=== PATIENT | male | born 1960 | race Caucasian/White ===

== ENCOUNTER 2019-05-30 11:57 | Outpatient (CLI) | payer MEDICARE, SELFPAY ==
[2019-05-30 12:17] LABS: Add Urine Microscopic? YES; Appearance Urine Clear (Clear); Bilirubin Urine Negative (Negative); Blood Urine Negative (Negative); Color Urine Yellow (Yellow); Glucose Urine UA 2+ mg/dL (Negative); Ketones Urine Negative (Negative); Leukocyte Esterase Ur Negative LEU/UL (Negative); Mucus Urine Rare /lpf; Nitrate Urine Negative (Negative); Protein Urine Negative (Negative); RBC Urine 0-2 /hpf (0-2); Urobilinogen Urine Negative mg/dL (<2.0); WBC Urine 0-3 /hpf
== END 2019-05-30 11:58 | disposition home or self-care (01) ==
PROVIDERS: PCP Internal Medicine; Visit Provider Internal Medicine
DX: R31.9 Hematuria, unspecified (principal)
CPT/HCPCS: 81001

== ENCOUNTER 2019-09-25 13:15 | Outpatient (CLI) | payer MEDICARE, SELFPAY ==
[2019-09-25 13:46] LABS: Alanine Aminotransferase 44 U/L (4-50); Albumin Level 4.1 g/dL (3.5-5.1); Alkaline Phosphatase 119 U/L (38-126); Anion Gap 11.2 mmol/L (7-16); Aspartate Amino Transferase 39 U/L (17-59); Bilirubin,Total 0.5 mg/dL (0.2-1.3); Blood Urea Nitrogen 6 mg/dL (9-20); Calcium 8.7 mg/dL (8.4-10.2); Carbon Dioxide 30 mmol/L (22-30); Chloride 99 mmol/L (98-107); Cholesterol 200 mg/dL (0-200); Estimated Glomerular Filt Rate > 60; Glucose 301 mg/dL (75-110); HDL Direct 33 mg/dL; Potassium 4.2 mmol/L (3.4-5.0); Sodium 136 mmol/L (137-145); Triglycerides 214 mg/dL (<150)
[2019-09-25 13:57] LABS: LDL Cholesterol Direct 130 mg/dL
[2019-09-25 14:16] LABS: Prostate Specific Antigen 0.4 ng/mL (< OR = 4.0)
== END 2019-09-25 13:16 | disposition home or self-care (01) ==
LOC: ANHLAB 13:17
PROVIDERS: PCP Internal Medicine; Visit Provider Nurse Practitioner
DX: Z12.5 Encounter for screening for malignant neoplasm of prostate (principal); E78.5 Hyperlipidemia, unspecified
CPT/HCPCS: 36415; 80053; 80061; 84153; G0103

== ENCOUNTER 2019-10-01 11:03 | Outpatient (CLI) | payer MEDICARE, SELFPAY ==
[2019-10-01 11:44] LABS: Hemoglobin A1C 9.1 % (<5.7)
== END 2019-10-01 11:04 | disposition home or self-care (01) ==
LOC: ANHLAB 11:05
PROVIDERS: PCP Internal Medicine; Visit Provider Internal Medicine
DX: R73.09 Other abnormal glucose (principal)
CPT/HCPCS: 36415; 83036

== ENCOUNTER 2020-01-28 10:59 | Outpatient (RCR) | payer MEDICARE, SELFPAY | END 2020-01-28 17:16 | disposition home or self-care (01) | LOC: ANHDMC 10:59 | PROVIDERS: PCP Internal Medicine; Visit Provider Internal Medicine | DX: E11.65 Type 2 diabetes mellitus with hyperglycemia (principal); G31.84 Mild cognitive impairment of uncertain or unknown etiology; Z71.89 Other specified counseling | CPT/HCPCS: G0108 ==

== ENCOUNTER 2020-01-28 13:51 | Outpatient (CLI) | payer MEDICARE, SELFPAY ==
[2020-01-28 14:56] LABS: Alanine Aminotransferase 19 U/L (4-50); Albumin Level 4.1 g/dL (3.5-5.1); Alkaline Phosphatase 108 U/L (38-126); Anion Gap 7 mmol/L (8-16); Aspartate Amino Transferase 26 U/L (17-59); Bilirubin,Total 0.5 mg/dL (0.2-1.3); Blood Urea Nitrogen 8 mg/dL (9-20); Calcium 9.3 mg/dL (8.4-10.2); Carbon Dioxide 31 mmol/L (22-30); Chloride 103 mmol/L (98-107); Cholesterol 117 mg/dL (0-200); Estimated Glomerular Filt Rate > 60; Glucose 139 mg/dL (75-110); HDL Direct 35 mg/dL; Potassium 4.1 mmol/L (3.4-5.0); Sodium 141 mmol/L (137-145); Triglycerides 168 mg/dL (<150)
[2020-01-28 15:07] LABS: LDL Cholesterol Direct 52 mg/dL
[2020-01-28 15:14] LABS: Hemoglobin A1C 6.4 % (<5.7)
== END 2020-01-28 13:52 | disposition home or self-care (01) ==
LOC: ANHLAB 13:53
PROVIDERS: PCP Internal Medicine; Visit Provider Internal Medicine
DX: E11.9 Type 2 diabetes mellitus without complications (principal); I10 Essential (primary) hypertension; E78.5 Hyperlipidemia, unspecified
CPT/HCPCS: 36415; 80053; 80061; 83036; G0108

== ENCOUNTER 2020-03-31 10:40 | Outpatient (CLI) | payer MEDICARE, SELFPAY ==
--- NOTE | ~2020-03-31 | XR_ITS ---
XR abdomen/kub 1V DATE: 03/31/2020 10:57 INDICATION: Left flank pain TECHNIQUE: AP projection, 2 views COMPARISON: 07/15/2011 KUB 06/06/[address] abdomen pelvis FINDINGS: No urinary tract calcification is evident. No visceromegaly is detected. The psoas shadows are intact. No evidence of bowel obstruction. Included skeletal structures are unremarkable. IMPRESSION: No significant abnormality Reviewed, dictated and finalized at Location [facility]. Reviewed, dictated and finalized at location A. ON IMPAIRED TEACHER IMPRESSION: No significant abnormality
[2020-03-31 11:14] LABS: Add Urine Microscopic? YES; Appearance Urine Clear (Clear); Bacteria Urine Trace /hpf; Bilirubin Urine Negative (Negative); Blood Urine Negative (Negative); Color Urine Yellow (Yellow); Glucose Urine UA 3+ mg/dL (Negative); Ketones Urine Negative (Negative); Leukocyte Esterase Ur Negative LEU/UL (Negative); Mucus Urine Rare /lpf; Nitrate Urine Negative (Negative); Protein Urine Negative (Negative); RBC Urine 0-2 /hpf (0-2); Specific Grav Ur 1.021 (1.001-1.035); Squamous Epithelial Cell Urine Rare /hpf (Few); Urobilinogen Urine Negative mg/dL (<2.0); WBC Urine 0-3 /hpf
== END 2020-03-31 10:41 | disposition home or self-care (01) ==
PROVIDERS: PCP Internal Medicine; Visit Provider Internal Medicine
DX: R10.9 Unspecified abdominal pain (principal)
CPT/HCPCS: 74018; 81001

== ENCOUNTER 2020-05-13 09:10 | Outpatient (CLI) | payer MEDICARE, SELFPAY | END 2020-05-13 09:11 | disposition home or self-care (01) | LOC: ANHCOVIDVC 09:10 | PROVIDERS: PCP Internal Medicine | DX: Z23 Encounter for immunization (principal) | CPT/HCPCS: 0001A; 91300 ==

== ENCOUNTER 2020-06-03 09:09 | Outpatient (CLI) | payer MEDICARE, SELFPAY | END 2020-06-03 09:10 | disposition home or self-care (01) | LOC: ANHCOVIDVC 09:09 | PROVIDERS: PCP Internal Medicine | DX: Z23 Encounter for immunization (principal) | CPT/HCPCS: 0002A; 91300 ==

== ENCOUNTER 2020-12-12 11:07 | Outpatient (CLI) | payer MEDICARE, SELFPAY ==
[2020-12-12 11:45] LABS: Hemoglobin A1C 6.4 % (<5.7)
[2020-12-12 12:06] LABS: Alanine Aminotransferase 15 U/L (4-50); Albumin Level 4.3 g/dL (3.5-5.1); Alkaline Phosphatase 124 U/L (38-126); Anion Gap 7 mmol/L (8-16); Aspartate Amino Transferase 21 U/L (17-59); Bilirubin,Total 0.5 mg/dL (0.2-1.3); Blood Urea Nitrogen 9 mg/dL (9-20); Calcium 9.3 mg/dL (8.4-10.2); Carbon Dioxide 32 mmol/L (22-30); Chloride 104 mmol/L (98-107); Cholesterol 116 mg/dL (0-200); Estimated Glomerular Filt Rate > 60; Glucose 210 mg/dL (65-110); HDL Direct 36 mg/dL; Potassium 4.1 mmol/L (3.4-5.0); Sodium 143 mmol/L (137-145); Triglycerides 122 mg/dL (<150)
[2020-12-12 12:16] LABS: LDL Cholesterol Direct 54 mg/dL
== END 2020-12-12 11:08 | disposition home or self-care (01) ==
LOC: ANHLAB 11:09
PROVIDERS: PCP Internal Medicine; Visit Provider Nurse Practitioner
DX: E78.5 Hyperlipidemia, unspecified (principal); E11.9 Type 2 diabetes mellitus without complications
CPT/HCPCS: 36415; 80053; 80061; 83036

== ENCOUNTER 2021-01-10 12:21 | Outpatient (CLI) | payer MEDICARE, SELFPAY ==
--- NOTE | 2021-01-10 12:39 | ECHO_ITS ---
Patient Info Name: Pavel Davis Age: 60 years : 1960 Gender: Male Ht: 71 in Wt: 220 lbs BSA: 2.26 m2 HR: 70 bpm BP: 154 / 91 mmHg Heart Rhythm: Sinus Rhythm Exam Date: 01/10/2021 2:09 PM Exam Location: [facility] Patient Status: Outpatient Admit Date: 01/10/2021 Staff Ordering Physician: Anup Arevalo DO Metal Polisher: Yasmine Cadena RDCS Attending Provider: Anup Arevalo DO Referring Physician: Irina MILLAN; Exam Type: CA echo doppler color flow Study Info Indications R55 - Syncope and collapse Complete two-dimensional, color flow and Doppler transthoracic echocardiogram is performed. Summary 1. Complete two-dimensional, color flow and Doppler transthoracic echocardiogram is performed. 2. Left ventricular chamber dimension is normal. 3. Left ventricular systolic function is normal, estimated at 55-60%. 4. The left ventricular diastolic function is grade I diastolic dysfunction. 5. E/e' 9 is minimally elevated. 6. Left atrial chamber dimension is mildly enlarged. 7. There is trace mitral valve regurgitation. 8. No pulmonary hypertension, estimated pulmonary arterial systolic pressure is 30 mmHg. Left Ventricle E/e' 9 is minimally elevated. Left ventricular chamber dimension is normal. Left ventricular systolic function is normal, estimated at 55-60%. The left ventricular diastolic function is grade I diastolic dysfunction. Right Ventricle Right ventricular systolic function is normal and with normal TAPSE 2.0 cm. Right ventricular chamber dimension is normal. Left Atria Left atrial chamber dimension is mildly enlarged. Right Atria Right atrial chamber dimension is normal. Aortic Valve The aortic valve is trileaflet. There is no aortic valve stenosis. There is no aortic valve regurgitation. Pulmonic Valve There is no pulmonic regurgitation. Mitral Valve There is no mitral valve stenosis. There is trace mitral valve regurgitation. Tricuspid Valve There is no tricuspid valve regurgitation. No pulmonary hypertension, estimated pulmonary arterial systolic pressure is 30 mmHg. Pericardium/Pleural There is no pericardial effusion. Inferior Vena Cava Normal inferior vena cava with >50% collapse upon inspiration consistent with normal right atrial pressure, 5 mmHg. Aorta The aortic root size at the sinus of Valsalva is normal. Left Ventricular Outflow Tract Name Value Normal LVOT 2D LVOT Diameter 2.0 cm LVOT Doppler LVOT Peak Gradient 4 mmHg LVOT Mean Gradient 2 mmHg LVOT VTI 23 cm LVOT VTI/AV VTI Ratio 0.8 LVOT Stroke Volume 74 ml LVOT CO 4.8 l/min LVOT CI 2.1 l/min/m2 Pulmonic Valve Name Value Normal RVOT Doppler
--- NOTE | 2021-01-13 12:42 | WPDHOLTEREM ---
Holter/Event Monitor Holter/Event Monitor Date of procedure: 01/09/21 Holter/Event Procedure: 48 Hr Holter Monitor Indications: Syncope Conclusion: 1. 48 hour holter monitor on 01/09/21. 2. Underlying rhythm is sinus rhythm. HR range 50-132 bpm; average HR 81 bpm. 3. There are 17 premature supraventricular complexes and 1 supraventricular couplet. No supraventricular tachycardia. 4. There are 8 premature ventricular complexes. No ventricular tachycardia. 5. No sinoatrial or atrioventricular blocks. No significant pauses greater than 2 seconds. 6. No symptoms available for correlation.
== END 2021-01-10 12:22 | disposition home or self-care (01) ==
PROVIDERS: PCP Internal Medicine; Visit Provider Internal Medicine
DX: R55 Syncope and collapse (principal)
CPT/HCPCS: 93225; 93226; 93306

== ENCOUNTER 2021-05-02 10:10 | Outpatient (CLI) | payer MEDICARE, SELFPAY ==
[2021-05-02 10:46] LABS: Alanine Aminotransferase 25 U/L (4-50); Albumin Level 4.3 g/dL (3.5-5.1); Alkaline Phosphatase 153 U/L (38-126); Anion Gap 5 mmol/L (8-16); Aspartate Amino Transferase 39 U/L (17-59); Bilirubin,Total 0.5 mg/dL (0.2-1.3); Blood Urea Nitrogen 8 mg/dL (9-20); Calcium 8.6 mg/dL (8.4-10.2); Carbon Dioxide 32 mmol/L (22-30); Chloride 103 mmol/L (98-107); Cholesterol 151 mg/dL (0-200); Estimated Glomerular Filt Rate > 60; Glucose 279 mg/dL (65-110); HDL Direct 36 mg/dL; Potassium 5.1 mmol/L (3.4-5.0); Sodium 140 mmol/L (137-145); Triglycerides 127 mg/dL (<150)
[2021-05-02 10:58] LABS: LDL Cholesterol Direct 77 mg/dL
[2021-05-02 11:30] LABS: Hemoglobin A1C 7.1 % (<5.7)
== END 2021-05-02 10:11 | disposition home or self-care (01) ==
LOC: ANHLAB 10:14
PROVIDERS: PCP Internal Medicine; Visit Provider Internal Medicine
DX: E11.9 Type 2 diabetes mellitus without complications (principal); I25.10 Atherosclerotic heart disease of native coronary artery without angina pectoris; E78.5 Hyperlipidemia, unspecified
CPT/HCPCS: 36415; 80053; 80061; 83036

== ENCOUNTER 2021-06-20 07:46 | Outpatient (CLI) | payer MEDICARE, SELFPAY ==
--- NOTE | ~2021-06-20 | NM_ITS ---
EXAM: NM gastric emptying study DATE: 06/20/2021 14:40 INDICATION: Vomiting. TECHNIQUE: A gastric emptying study was performed using the methodology of Polina MURILLO, et al. J Nucl Med 2007; 48:568-572. The patient was given a meal consisting of 2 scrambled eggs labeled with 1 mCi Tc-99m sulfur colloid, 2 slices of toast, two packages of jam, and approximately 120 mL of water. Si multaneous anterior and posterior 1-min images of the abdomen were obtained with the patient supine a t multiple time points over a total period of 4 hours. The geometric mean of anterior and posterior v iews was determined, and the percentage retention was calculated for each time point. COMPARISON: None. FINDINGS: Gastric retention of the radiotracer-labeled meal was 73%, 38%, and 11% at the 1-hour, 2-h our, and 4-hour time points, respectively. With this technique, apparent rapid gastric emptying is srivastava ggested by <30% gastric retention at 1 hour. Delayed gastric emptying is defined by gastric retention of >90% at 1 hour, >60% retention at 2 hours, or >10% retention at 4 hours. IMPRESSION: 1. Delayed gastric emptying. Reviewed, dictated and finalized at location A.
== END 2021-06-20 07:47 | disposition home or self-care (01) ==
LOC: ANHIMG 07:48
PROVIDERS: PCP Internal Medicine; Visit Provider Nurse Practitioner
DX: R11.10 Vomiting, unspecified (principal); E11.9 Type 2 diabetes mellitus without complications; K30 Functional dyspepsia
CPT/HCPCS: 78264; A9541

== ENCOUNTER 2021-12-20 16:38 | Emergency (ER) | payer MEDICARE, SELFPAY ==
--- NOTE | ~2021-12-20 | CT_ITS ---
EXAMINATION: CTA chest PE protocol DATE: 12/20/2021 21:11 INDICATION: Dyspnea on exertion. Elevated d-dimer. History of deep venous thrombosis. TECHNIQUE: Computed tomography angiography (CTA) of the chest was performed with 100 mL Omnipaque-350 intravenous contrast timed to evaluate the pulmonary arteries. Coronal maximum intensity projection 3D-reconstructions were created by the technologist. Automated exposure control and iterative reconst ruction technique were employed. Exam dose: 509.23 mGy-cm total exam DLP. COMPARISON: 12/20/2021 2 view chest 09/10/2017 CT chest high resolution scan 06/27/2023 CT pulmonary scan FINDINGS: There is diagnostic contrast enhancement of the pulmonary arteries and no evidence of pulmo nary embolism. No thoracic aortic aneurysm or dissection. Normal heart size. There is left main and left anterior de scending coronary artery calcification. No pericardial or pleural effusion. No hilar or mediastinal mass lesion or lymphadenopathy. There are scattered mild bilateral focal areas of groundglass infiltrate and/or atelectasis. IMPRESSION: No evidence of pulmonary embolism Scattered bilateral patchy focal groundglass infiltrates and/atelectasis Reviewed, dictated and finalized at [facility]. Reviewed, dictated and finalized at location A.
--- NOTE | ~2021-12-20 | CT_ITS ---
EXAMINATION: CT cervical spine wo con DATE: 12/20/2021 18:51 INDICATION: Paresthesias and pain in the arms. TECHNIQUE: Computed tomography (CT) of the cervical spine was performed without intravenous contrast. Automated exposure control and iterative reconstruction technique were employed. The dose-length pro duct was 443.22 mGy-cm. COMPARISON: None FINDINGS: There is 3 degrees dextrocurvature of cervical spine. Vertebral body heights are normal. Th ere is mildly decreased disc height at C4-C5 and moderately decreased disc height at C5-C6 and C6-C7. The following disc levels are specifically discussed: C2-C3: There is mild bilateral uncovertebral joint osteoarthritis. There is no facet joint osteoarthr itis. There is mild right neural foraminal stenosis. There is no central canal stenosis. C3-C4: There is mild bilateral uncovertebral joint osteoarthritis. There is mild left facet joint ost eoarthritis. There is mild bilateral neural foraminal stenosis. There is mild central canal stenosis. C4-C5: There is moderate right and mild left uncovertebral joint osteoarthritis. There is mild right and moderate left facet joint osteoarthritis. There is mild bilateral neural foraminal stenosis. Ther e is no central canal stenosis. C5-C6: There is severe bilateral uncovertebral joint osteoarthritis. There is mild bilateral facet gloria int osteoarthritis. There is mild bilateral neural foraminal stenosis. There is mild central canal st enosis. C6-C7: There is severe bilateral uncovertebral joint osteoarthritis. There is severe right and modera te left facet joint osteoarthritis. There is mild bilateral neural foraminal stenosis. There is mild central canal stenosis. C7-T1: There is no uncovertebral joint osteoarthritis. There is severe right and mild left facet join t osteoarthritis. There is mild right neural foraminal stenosis. There is no central canal stenosis. IMPRESSION: 1. Moderate cervical spondylosis. Reviewed, dictated and finalized at location A.
--- NOTE | ~2021-12-20 | XR_ITS ---
EXAMINATION: XR chest 2V DATE: 12/20/2021 17:00 INDICATION: Shortness of breath. TECHNIQUE: Frontal and lateral views of the chest were obtained. COMPARISON: Chest 2 views 06/26/2013 FINDINGS: The chest demonstrates clear lungs without pneumonia, pleural effusion, or pneumothorax. Th e heart size is normal. IMPRESSION: 1. No acute cardiopulmonary disease. Reviewed, dictated and finalized at location A.
--- NOTE | ~2021-12-20 | CT_ITS ---
EXAMINATION: CT brain wo con DATE: 12/20/2021 18:51 INDICATION: Paresthesias. Headache. Dizziness. TECHNIQUE: Computed tomography (CT) of the head was performed without intravenous contrast. The mA wa s adjusted according to patient size. Iterative reconstruction technique was employed. The dose-lengt h product was 681.00 mGy-cm. COMPARISON: Head CT 09/04/2010 FINDINGS: There is no intracranial hemorrhage, acute infarction, or abnormal intracranial mass lesion . The ventricles are normal in size. The orbits are normal. There is mild mucosal thickening in the p aranasal sinuses. The mastoid air cells are normal. IMPRESSION: 1. Normal brain. Reviewed, dictated and finalized at location A. IMPRESSION: 1. Normal brain.
--- NOTE | 2021-12-20 16:44 | ECG_ITS ---
Measurements Intervals [place] Rate: 87 P: 27 NM: 161 QRS: -3 QRSD: 91 T: 41 QT: 352 QTc: 424 Interpretive Statements SINUS RHYTHM NO PREVIOUS ECG AVAILABLE FOR COMPARISON Electronically Signed On 12-21-2021 13:51:51 CDT by Erica Stone M.D.
[2021-12-20 16:46] VITALS: BP 124/75; PULSE 93; RESP 20; TEMP 36.2; O2SAT 98
[2021-12-20 17:07] LABS: Basophils Percent Auto 0.5 % (0.2-1.2); Eosinophils Percent Auto 0.4 % (0-4.4); Hematocrit 41.7 % (42.0-52.0); Hemoglobin 14.3 g/dL (14.0-18.0); Immature Granulocyte Absolute 0.02 K/mm3 (0.00-0.031); Immature Granulocyte Percent A 0.3 % (0-0.5); Lymphocytes Absolute Auto 1.31 K/mm3 (0.9-3.2); Lymphocytes Percent Auto 16.4 % (18.3-44.2); Mean Corpuscular HGB Conc 34.3 g/dl (32-36); Mean Corpuscular Hemoglobin 32.4 pg (26-34); Mean Corpuscular Volume 94.6 fl (80-100); Mean Platelet Volume 10.7 fl (7.4-10.4); Monocytes Absolute Auto 0.4 K/mm3 (0.1-0.6); Monocytes Percent Auto 4.6 % (2.6-8.5); Neutrophils Absolute Auto 6.2 K/mm3 (1.3-6.7); Neutrophils Percent Auto 77.8 % (45.5-73.1); Platelet Count Result 187 k/mm3 (150-375); Red Blood Count 4.41 M/mm3 (4.6-6.20); Red Cell Distribution Width 12.1 % (11.5-14.5)
[2021-12-20 17:19] LABS: Alanine Aminotransferase 20 U/L (6-50); Albumin Level 4.8 g/dL (3.5-5.1); Alkaline Phosphatase 123 U/L (38-126); Anion Gap 16 mmol/L (8-16); Aspartate Amino Transferase 34 U/L (17-59); Bilirubin,Total 0.8 mg/dL (0.2-1.3); Blood Urea Nitrogen 9 mg/dL (9-20); Calcium 8.8 mg/dL (8.4-10.2); Carbon Dioxide 28 mmol/L (22-30); Chloride 101 mmol/L (98-107); Estimated CRCL calculation 71 ml/min; Estimated Glomerular Filt Rate > 60; Glucose 113 mg/dL (65-110); Potassium 4.9 mmol/L (3.4-5.0); Sodium 145 mmol/L (137-145)
[2021-12-20 18:40] VITALS: BP 152/76; PULSE 89; RESP 16; O2SAT 98
--- NOTE | 2021-12-20 18:43 | ED.GENADULT ---
HPI - General Adult General Chief complaint: Shortness of Breath/Dyspnea <Karin Johnson PA-C - Last Filed: 12/20/21 21:54> Stated complaint: bilateral UE numbness with SOB and CP <Karin Johnson PA-C - Last Filed: 12/20/21 21:54> Time Seen by Provider: 12/20/21 18:22 <LEONA Alcaraz Last Filed: 12/20/21 21:54> Source: patient and family <LEONA Alcaraz Last Filed: 12/20/21 21:54> Mode of arrival: ambulatory <LEONA Alcaraz Last Filed: 12/20/21 21:54> Limitations: no limitations <LEONA Alcaraz Last Filed: 12/20/21 21:54> History of Present Illness HPI narrative: This is a 61-year-old male that presents to the emergency department with multiple complaints. Reports over the last week he has been having pain and tingling in both of his upper extremities. Reports this has become more constant today. No recent injuries or traumas. Also reports he has had some exertional shortness of breath. He has been having headaches, which are chronic for him. Also reports lightheadedness. Denies vision changes, vomiting, or focal numbness or weakness. <Karin Johnson PA-C - Last Filed: 12/20/21 21:54> Related Data Home medications: Home Medications Medication Instructions Recorded Confirmed desipramine 10 mg tablet 10 mg PO DAILY 03/31/20 12/06/21 gabapentin 600 mg tablet 900 mg PO TID 06/03/20 12/06/21 meloxicam 15 mg tablet 15 mg PO DAILY 06/03/20 12/06/21 <LEONA Alcaraz Last Filed: 12/20/21 21:54> Allergies/adverse reactions: Allergies Allergy/AdvReac Type Severity Reaction Status Date / Time codeine Allergy Mild Nausea And Verified 12/20/21 16:40 Vomiting <LEONA Alcaraz Last Filed: 12/20/21 21:54> Review of Systems Review of Systems: CONSTITUTIONAL: Denies fever EYES: Denies visual changes CARDIOVASCULAR: Denies chest pain RESPIRATORY: Reports dyspnea. GASTROINTESTINAL: Denies vomiting MUSCULOSKELETAL: Reports joint pain, and myalgia. NEUROLOGIC: Reports headache. Denies numbness, or weakness. <Karin Johnson PA-C - Last Filed: 12/20/21 21:54> All systems reviewed & are unremarkable except as noted in HPI and below <Karin Johnson PA-C - Last Filed: 12/20/21 21:54> FORMERLY [facility], [facility]–1983 Past Medical History Medical History: Medical History (Updated 12/20/21 @ 21:53 by Karin Johnson PA-C) Benign essential hypertension Dementia History of TIAs Hx of deep venous thrombosis Mixed hyperlipidemia Screening for prostate cancer Skin lesions Type 2 diabetes mellitus <Karin Johnson PA-C - Last Filed: 12/20/21 21:54> Family History Family History: Family History Mother Family history of heart disease in male family member before age 55 Grandparent Family history of heart disease in male family member before age 55 Other Family history of dementia Hypertension <Karin Johnson PA-C - Last Filed: 12/20/21 21:54> Social History Social History: Social History (Updated 12/20/21 @ 18:47 by Karin Johnson PA-C) Smoking status: Current every day smoker Tobacco type: e-cigarettes/vaping Alcohol intake: never Substance use: current Substance use type: marijuana <Karin Johnson PA-C - Last Filed: 12/20/21 21:54> Exam Narrative: GENERAL: Well-appearing, well-nourished, and in no acute distress. HEAD: Normocephalic, atraumatic. EYES: PERRLA and EOMI. ENT: Nares clear, no rhinorrhea or epistaxis. Mucous membranes moist. Oropharynx without tonsillar hypertrophy exudate or other lesions. Bilateral TMs pearly ojeda non-bulging NECK: Supple. No adenopathy or masses. CHEST: Clear to auscultation. No respiratory distress. No wheezes rales or rhonchi HEART: Regular rate and rhythm. No murmur heard. Normal peripheral pulses. EXTREMITIES: Normal range of motion. No edema. Strength equal in bilateral upper and lower extremitie
[2021-12-20 19:27] LABS: Add Urine Microscopic? YES; Appearance Urine Clear (Clear); Bacteria Urine Trace /hpf; Bilirubin Urine Negative (Negative); Blood Urine Negative (Negative); Color Urine Yellow (Yellow); Glucose Urine UA 2+ mg/dL (Negative); Ketones Urine Negative (Negative); Leukocyte Esterase Ur Negative LEU/UL (Negative); Mucus Urine Rare /lpf; Nitrate Urine Negative (Negative); Protein Urine Negative (Negative); Specific Grav Ur 1.021 (1.001-1.035); Urobilinogen Urine Negative mg/dL (<2.0); WBC Urine 0-3 /hpf
[2021-12-20 19:39] LABS: Troponin I < 0.012 ng/mL (0.000-0.034)
[2021-12-20 19:51] LABS: Influenza A QL RT-PCR Negative (Negative); Influenza B QL RT-PCR Negative (Negative); SARS-CoV-2 RNA PCR Negative
[2021-12-20 20:09] LABS: INR 1.1; Prothrombin Time 13.4 Seconds (11.1-14.7)
[2021-12-20 20:11] LABS: Partial Thromboplastin Time 26.2 SECONDS (22.3-36.8)
[2021-12-20 20:14] LABS: D Dimer 0.82 ug/mL (<0.48)
[2021-12-20 20:36] LABS: Folic Acid 7.2 ng/mL (2.76->20)
[2021-12-20 20:37] VITALS: PULSE 75
[2021-12-20] MEDS: diazePAM INJ (*CRX) 10 MG/2 ML SYRINGE 5 MG IV PUSH (21:36)
[2021-12-20 21:37] VITALS: BP 146/85; PULSE 70; RESP 16; TEMP 36.8; O2SAT 97
[2021-12-20 22:24] VITALS: BP 143/64; PULSE 75; RESP 15; O2SAT 96
== END 2021-12-20 22:25 | disposition home or self-care (01) ==
PROVIDERS: Emergency Medicine; Physician Assistant; Emergency Provider Emergency Medicine; PCP Internal Medicine
DX: R20.2 Paresthesia of skin (principal); R06.00 Dyspnea, unspecified; Z20.822 Contact with and (suspected) exposure to COVID-19; I10 Essential (primary) hypertension; F03.90 Unspecified dementia, unspecified severity, without behavioral disturbance, psychotic disturbance, mood disturbance, and anxiety; E11.9 Type 2 diabetes mellitus without complications; E78.2 Mixed hyperlipidemia; Z86.718 Personal history of other venous thrombosis and embolism; Z86.73 Personal history of transient ischemic attack (TIA), and cerebral infarction without residual deficits; F17.290 Nicotine dependence, other tobacco product, uncomplicated; R06.02 Shortness of breath; Z79.84 Long term (current) use of oral hypoglycemic drugs
CPT/HCPCS: 36415; 70450; 71046; 71275; 72125; 80053; 81001; 82607; 82746; 83735; 84443; 84484; 85025; 85380; 85610; 85730; 87502; 93005; 96365; 96375; 99284; J0131; J3360; Q9967; U0003; U0005

== ENCOUNTER 2022-04-13 11:53 | Emergency (ER) | payer MEDICARE, SELFPAY ==
--- NOTE | ~2022-04-13 | XR_ITS ---
EXAMINATION: XR chest 2V DATE: 04/13/2022 12:25 INDICATION: Midsternal chest pain TECHNIQUE: PA and lateral views of the chest are obtained. COMPARISON: 12/20/2021 FINDINGS: The lungs are free of acute opacities. No pleural effusion or pneumothorax. The cardiomedia stinal silhouette is normal. There is mild thoracic spondylosis. IMPRESSION: 1. No acute cardiopulmonary abnormality. Reviewed, dictated and finalized at location B. ARCH LABORATORY SPECIALIST
--- NOTE | 2022-04-13 11:54 | ECG_ITS ---
Measurements Intervals [place] Rate: 70 P: 15 MO: 167 QRS: -6 QRSD: 89 T: 31 QT: 377 QTc: 409 Interpretive Statements SINUS RHYTHM WITHIN NORMAL LIMITS COMPARED TO ECG 12/20/2021 16:48:07 NO SIGNIFICANT CHANGES Electronically Signed On 04-13-2022 15:31:12 GUIDE by Silverio Chávez M.D.
[2022-04-13 12:02] VITALS: BP 147/92; PULSE 70; RESP 16; TEMP 36.4; O2SAT 100
[2022-04-13 12:15] LABS: Basophils Percent Auto 0.6 % (0.2-1.2); Eosinophils Absolute Auto 0.1 K/mm3 (0-0.3); Hemoglobin 15.3 g/dL (14.0-18.0); Immature Granulocyte Absolute 0.02 K/mm3 (0.00-0.031); Immature Granulocyte Percent A 0.4 % (0-0.5); Lymphocytes Absolute Auto 1.06 K/mm3 (0.9-3.2); Mean Corpuscular Hemoglobin 32.3 pg (26-34); Mean Corpuscular Volume 95.1 fl (80-100); Mean Platelet Volume 10.9 fl (7.4-10.4); Monocytes Absolute Auto 0.3 K/mm3 (0.1-0.6); Monocytes Percent Auto 5.2 % (2.6-8.5); Neutrophils Absolute Auto 3.4 K/mm3 (1.3-6.7); Neutrophils Percent Auto 70.8 % (45.5-73.1); Platelet Count Result 170 k/mm3 (150-375); Red Blood Count 4.73 M/mm3 (4.6-6.20); Red Cell Distribution Width 12.1 % (11.5-14.5); White Blood Count 4.8 K/mm3 (4.5-10.0)
[2022-04-13 12:28] LABS: Alanine Aminotransferase 24 U/L (6-50); Albumin Level 4.5 g/dL (3.5-5.1); Alkaline Phosphatase 154 U/L (38-126); Anion Gap 7 mmol/L (8-16); Aspartate Amino Transferase 28 U/L (17-59); Bilirubin,Total 0.5 mg/dL (0.2-1.3); Blood Urea Nitrogen 7 mg/dL (9-20); Calcium 8.6 mg/dL (8.4-10.2); Carbon Dioxide 29 mmol/L (22-30); Chloride 102 mmol/L (98-107); Estimated CRCL calculation 79 ml/min; Estimated Glomerular Filt Rate > 60; Glucose 194 mg/dL (65-110); Lipase 397 U/L (23-300); Potassium 4.1 mmol/L (3.4-5.0); Sodium 138 mmol/L (137-145)
[2022-04-13 12:35] LABS: INR 0.9; Partial Thromboplastin Time 25.9 SECONDS (22.3-36.8); Prothrombin Time 12.1 Seconds (11.1-14.7)
[2022-04-13 12:38] LABS: Troponin I < 0.012 ng/mL (0.000-0.034)
--- NOTE | 2022-04-13 13:01 | PC.NURSE ---
pt states all of his symptoms have resolved and he will follow up with his pmd. pt left stating he will follow up with his physician.
== END 2022-04-13 13:01 | disposition left against medical advice (07) ==
PROVIDERS: Emergency Provider Emergency Medicine; PCP Internal Medicine
DX: R07.2 Precordial pain (principal); R06.02 Shortness of breath
CPT/HCPCS: 36415; 71046; 80053; 83690; 84484; 85025; 85610; 85730; 93005; 99199

== ENCOUNTER 2022-11-19 14:25 | Outpatient (CLI) | payer MEDICARE, SELFPAY ==
--- NOTE | ~2022-11-19 | MR_ITS ---
EXAMINATION: MR cervical spine wo con DATE: 11/19/2022 15:30 INDICATION: Cervical radiculopathy. TECHNIQUE: Magnetic resonance imaging (MRI) of the cervical spine was performed without intravenous c ontrast. COMPARISON: Cervical spine MRI 04/04/2012 FINDINGS: There is 6 degrees levocurvature of cervicothoracic spine. Vertebral body heights are pradeep l. There is mildly decreased disc height at C4-C5, moderately decreased disc height at C5-C6, and sev erely decreased disc height at C6-C7. The spinal cord signal intensity is normal. The following disc levels are specifically discussed: C2-C3: The disc does not extend beyond the endplate margin. There is mild right uncovertebral joint o steoarthritis. There is no facet joint osteoarthritis. There is mild right neural foraminal stenosis. There is no central canal stenosis. C3-C4: There is a central protrusion. There is moderate bilateral uncovertebral joint osteoarthritis. There is mild bilateral facet joint osteoarthritis. There is mild bilateral neural foraminal stenosi s. There is no central canal stenosis. C4-C5: There is a central extrusion. There is severe right and moderate left uncovertebral joint oste oarthritis. There is mild right and moderate left facet joint osteoarthritis. There is moderate right and mild left neural foraminal stenosis. There is mild central canal stenosis. C5-C6: The disc is bulging. There is severe bilateral uncovertebral joint osteoarthritis. There is mo derate right and mild left facet joint osteoarthritis. There is severe right and moderate left neural foraminal stenosis. There is mild central canal stenosis. C6-C7: The disc is bulging. There is severe bilateral uncovertebral joint osteoarthritis. There is se osiel bilateral facet joint osteoarthritis. There is moderate right and mild left neural foraminal ayana nosis. There is mild central canal stenosis. C7-T1: There is a central protrusion. There is no uncovertebral joint osteoarthritis. There is severe right and moderate left facet joint osteoarthritis. There is mild bilateral neural foraminal stenosi s. There is no central canal stenosis. IMPRESSION: 1. Severe cervical spondylosis. Reviewed, dictated and finalized at location A.
== END 2022-11-19 14:26 | disposition home or self-care (01) ==
PROVIDERS: PCP Nurse Practitioner; Visit Provider Physical Medicine & Rehabilitation
DX: M47.22 Other spondylosis with radiculopathy, cervical region (principal)
CPT/HCPCS: 72141

== ENCOUNTER 2022-12-26 11:13 | Outpatient (CLI) | payer MEDICARE, SELFPAY ==
[2022-12-26 12:12] LABS: Alanine Aminotransferase 17 U/L (6-50); Albumin Level 3.9 g/dL (3.5-5.1); Alkaline Phosphatase 104 U/L (38-126); Anion Gap 5 mmol/L (8-16); Aspartate Amino Transferase 25 U/L (17-59); Bilirubin,Total 0.5 mg/dL (0.2-1.3); Blood Urea Nitrogen 5 mg/dL (9-20); Calcium 8.6 mg/dL (8.4-10.2); Carbon Dioxide 32 mmol/L (22-30); Chloride 105 mmol/L (98-107); Cholesterol 223 mg/dL (0-200); Estimated Glomerular Filt Rate > 60; Glucose 126 mg/dL (65-110); HDL Direct 39 mg/dL; Sodium 142 mmol/L (137-145); Triglycerides 129 mg/dL (<150)
[2022-12-26 12:24] LABS: LDL Cholesterol Direct 135 mg/dL
[2022-12-26 12:41] LABS: Hemoglobin A1C 6.4 % (<5.7)
[2022-12-27 17:07] LABS: Prostate Specific Antigen 0.6 ng/mL (< OR = 4.0)
== END 2022-12-26 11:14 | disposition home or self-care (01) ==
LOC: ANHLAB 11:14
PROVIDERS: PCP Nurse Practitioner; Visit Provider Nurse Practitioner
DX: E11.9 Type 2 diabetes mellitus without complications (principal); I10 Essential (primary) hypertension; Z79.899 Other long term (current) drug therapy; E78.5 Hyperlipidemia, unspecified; Z12.5 Encounter for screening for malignant neoplasm of prostate
CPT/HCPCS: 36415; 80053; 80061; 83036; 84153; G0103

== ENCOUNTER 2023-02-28 10:58 | Emergency (ER) | payer MEDICARE, SELFPAY ==
--- NOTE | ~2023-02-28 | CT_ITS ---
EXAMINATION: CT brain wo con DATE: 02/28/2023 19:47 INDICATION: Head injury. TECHNIQUE: Computed tomography (CT) of the head was performed without intravenous contrast. The mA wa s adjusted according to patient size. Iterative reconstruction technique was employed. The dose-lengt h product was 681.00 mGy-cm. COMPARISON: Head CT 12/20/2021 FINDINGS: There is no intracranial hemorrhage, acute infarction, or abnormal intracranial mass lesion . The ventricles are normal in size. There is mucosal thickening in the paranasal sinuses. The orbit s are normal. The mastoid air cells are normal. IMPRESSION: 1. Normal brain. Reviewed, dictated and finalized at location E. ATIONS MANAGER STATION IMPRESSION: 1. Normal brain.
--- NOTE | ~2023-02-28 | CT_ITS ---
Non-contrast Head CT History: Altered mental status COMPARISON: 02/28/2023 Technique: Axial non-contrast imaging of the brain was performed. Dose reduction technique was used on this scan by utilizing automated exposure control and iterative reconstruction technique. The dose -length product (DLP) was 681.00 mGy-cm. Findings: There is no evidence of intracranial hemorrhage, mass lesion, or acute infarct. Brain par enchyma appears normal. The ventricles and subarachnoid spaces are normal in size. The calvarium ap pears normal. The visualized paranasal sinuses and mastoid air cells are clear. Impression: No significant abnormality seen. Reviewed, dictated and finalized at location . MACEUTICAL COMPOUNDING SUPERVISOR Impression: No significant abnormality seen.
--- NOTE | ~2023-02-28 | CT_ITS ---
Clinical Indication: Altered mental status, pain CT Scan of the Chest, Abdomen, and Pelvis with Contrast: Technique: Contiguous sections were acquired throughout the chest, abdomen, and pelvis after intraven ous administration of 100 cc of Omnipaque 350. Dose reduction technique was used on this scan by uti lizing automated exposure control and iterative reconstruction technique. The dose-length product (DL P) was 1509.18 mGy-cm. Findings: There is no evidence of any significant mediastinal, hilar or axillary lymphadenopathy. The mediastin al soft tissues and vascular structures appear normal. There is no evidence of pleural or pericardial effusion. The lungs are clear, aside from mild dependent atelectatic changes. The liver, spleen, pancreas, gallbladder, adrenals and right kidney are within normal limits. 2 mm no nobstructing left renal stone noted. No evidence of aortic aneurysm. No lymphadenopathy. No bowel obstruction or bowel wall thickening. There is no evidence to suggest acute appendicitis. Urinary bladder is unremarkable. Prostate gland seminal vesicles are unremarkable. No ascites. Small bilateral fat-containing inguinal hernias are noted. Impression: No definite acute abnormality seen. 2 mm nonobstructing left renal stone. Small bilateral fat-containing inguinal hernias. Reviewed, dictated and finalized at [facility]. PRESIDENT DIGITAL STRATEGIST Impression: No definite acute abnormality seen. 2 mm nonobstructing left renal stone. Small bilateral fat-containing inguinal hernias.
--- NOTE | ~2023-02-28 | CT_ITS ---
EXAMINATION: CT cervical spine wo con DATE: 02/28/2023 19:47 INDICATION: Head injury. TECHNIQUE: Computed tomography (CT) of the cervical spine was performed without intravenous contrast. Automated exposure control and iterative reconstruction technique were employed. The dose-length pro duct was 616.59 mGy-cm. COMPARISON: CT cervical spine 12/20/2021 FINDINGS: There is 7 degrees levocurvature of cervicothoracic spine. Vertebral body heights are pradeep l. There is mildly decreased disc height at C3-C4 and C4-C5 and severely decreased disc height at C5- C6 and C6-C7. The following disc levels are specifically discussed: C2-C3: There is mild bilateral uncovertebral joint osteoarthritis. There is mild bilateral facet join t osteoarthritis. There is mild right neural foraminal stenosis. There is no central canal stenosis. C3-C4: There is mild bilateral uncovertebral joint osteoarthritis. There is mild bilateral facet join t osteoarthritis. There is mild bilateral neural foraminal stenosis. There is no central canal stenos is. C4-C5: There is moderate right and mild left uncovertebral joint osteoarthritis. There is mild right and moderate left facet joint osteoarthritis. There is mild bilateral neural foraminal stenosis. Ther e is mild central canal stenosis. C5-C6: There is severe bilateral uncovertebral joint osteoarthritis. There is moderate right and mild left facet joint osteoarthritis. There is moderate right and mild left neural foraminal stenosis. Th ere is mild central canal stenosis. C6-C7: There is severe bilateral uncovertebral joint osteoarthritis. There is severe right and mild l eft facet joint osteoarthritis. There is moderate right and mild left neural foraminal stenosis. Ther e is mild central canal stenosis. C7-T1: There is no uncovertebral joint osteoarthritis. There is severe right and mild left facet join t osteoarthritis. There is mild right neural foraminal stenosis. There is no central canal stenosis. IMPRESSION: 1. No fracture. 2. Severe cervical spondylosis. Reviewed, dictated and finalized at location E. NICS INSTALLER
[2023-02-28 11:07] VITALS: BP 148/94; PULSE 92; RESP 22; TEMP 36.2; O2SAT 96
--- NOTE | 2023-02-28 11:08 | PC.NURSE ---
Addendum entered by Adilene Law RN 02/28/23 11:23: Pt exited ER and returned with . Security present. Charge Jacinto RN spoke with pt and explained we were here to help. states he has dementia. Pt continued to clinch fist in an aggressive matter. Original Note: Pt entered ED with aggression and threw his keys and wallet at this nurse in intake. Pt clinching both fist and shouted either help him now or he was going to kill himself.
--- NOTE | 2023-02-28 11:10 | PC.NURSE ---
pt refusing to get in pt gown. did hand over pocket knife to this rn.
--- NOTE | 2023-02-28 11:12 | ECG_ITS ---
Measurements Intervals [place] Rate: 84 P: 23 CA: 166 QRS: -3 QRSD: 93 T: 7 QT: 382 QTc: 453 Interpretive Statements SINUS RHYTHM BORDERLINE ST-T WAVE ABNORMALITY- INF/HIGH LAT LEADS BASELINE ARTIFACT- I, II, III, AVR, AVL, AVF, V4-V6 BORDERLINE ECG COMPARED TO ECG 04/13/2022 11:59:40 NO SIGNIFICANT CHANGES Electronically Signed On 02-28-2023 12:23:52 DIRECTOR OF RETAIL MARKETING by Chris Goode D.O.
[2023-02-28 11:32] LABS: Basophils Percent Auto 0.3 % (0.2-1.2); Hematocrit 40.3 % (42.0-52.0); Hemoglobin 13.5 g/dL (14.0-18.0); Immature Platelet Fraction Pct 8.9 % (0.9-11.2); Lymphocytes Absolute Auto 0.43 K/mm3 (0.9-3.2); Lymphocytes Percent Auto 14.1 % (18.3-44.2); Mean Corpuscular HGB Conc 33.5 g/dl (32-36); Mean Corpuscular Hemoglobin 31.2 pg (26-34); Mean Corpuscular Volume 93.1 fl (80-100); Mean Platelet Volume 11.4 fl (7.4-10.4); Monocytes Absolute Auto 0.2 K/mm3 (0.1-0.6); Monocytes Percent Auto 6.2 % (2.6-8.5); Neutrophils Absolute Auto 2.4 K/mm3 (1.3-6.7); Neutrophils Percent Auto 79.4 % (45.5-73.1); Platelet Count Result 123 k/mm3 (150-375); Red Blood Count 4.33 M/mm3 (4.6-6.20); Red Cell Distribution Width 12.2 % (11.5-14.5); White Blood Count 3.1 K/mm3 (4.5-10.0)
--- NOTE | 2023-02-28 11:32 | ED.GENADULT ---
HPI - General Adult General Chief complaint: Psychiatric Symptoms <LEONA Isbell Last Filed: 02/28/23 18:09> Stated complaint: SI <Oscar Casey PA-C - Last Filed: 02/28/23 18:09> Time Seen by Provider: 02/28/23 11:17 <LEONA Isbell Last Filed: 02/28/23 18:09> Source: patient <LEONA Isbell Last Filed: 02/28/23 18:09> Mode of arrival: ambulatory <LEONA Isbell Last Filed: 02/28/23 18:09> Limitations: no limitations <LEONA Isbell Last Filed: 02/28/23 18:09> History of Present Illness HPI narrative: This is a 62-year-old male with PMH of DM, frontotemporal dementia, chronic pain who presents to the ED with chief complaint of suicidal ideation. Reports he has been feeling like this for the past several days. States that ?if you do not help me I am going to kill myself.? Reports he does have planned to shoot himself in the head with a farm. Reports that he owns multiple firearms. Denies homicidal ideations. When asked why he takes paroxetine he states ?so I do not kill anyone.? But again denies any intent on homicidal ideation. Reports he had a recent ?break from reality and what he thought he believed was wrong. He is unwilling to elaborate on why he is feeling suicidal or how he had a break from reality. Denies any medical complaint. Denies hallucinations. Denies recreational drug use. <LEONA Isbell Last Filed: 02/28/23 18:09> Related Data Home medications: Home Medications Medication Instructions Recorded Confirmed desipramine 10 mg tablet 10 mg PO DAILY 03/31/20 12/26/22 gabapentin 600 mg tablet 900 mg PO TID 06/03/20 12/26/22 meloxicam 15 mg tablet 15 mg PO DAILY 06/03/20 12/26/22 memantine 10 mg tablet 10 mg PO QPM 12/26/22 12/26/22 <LEONA Isbell Last Filed: 02/28/23 18:09> Allergies/adverse reactions: Allergies Allergy/AdvReac Type Severity Reaction Status Date / Time codeine Allergy Mild Nausea And Verified 02/28/23 11:51 Vomiting <Oscar Casey PA-C - Last Filed: 02/28/23 18:09> Review of Systems Review of Systems: All systems as dictated in HPI <Oscar Casey PA-C - Last Filed: 02/28/23 18:09> PMFSH Past Medical History Medical History: Medical History Arthritis of left shoulder region Benign essential hypertension Brachial neuritis of left upper extremity Dementia History of TIAs Hx of deep venous thrombosis Mixed hyperlipidemia Screening for prostate cancer Skin lesions Type 2 diabetes mellitus <LEONA Isbell Last Filed: 02/28/23 18:09> Family History Family History: Family History Mother Family history of heart disease in male family member before age 55 Grandparent Family history of heart disease in male family member before age 55 Other Family history of dementia Hypertension <LEONA Isbell Last Filed: 02/28/23 18:09> Social History Social History: Social History Smoking status: Current every day smoker Tobacco type: e-cigarettes/vaping Alcohol intake: never Substance use: current Substance use type: does not use <LEONA Isbell Last Filed: 02/28/23 18:09> Exam Narrative: GENERAL: Well-appearing, well-nourished, and in no acute distress. HEAD: Normocephalic, atraumatic. EYES: PERRLA and EOMI. ENT: Nares clear, no rhinorrhea or epistaxis. Mucous membranes moist. Oropharynx without tonsillar hypertrophy exudate or other lesions. NECK: Supple. No adenopathy or masses. CHEST: No respiratory distress. Clear to auscultation. No wheezes rales or rhonchi HEART: Regular rate and rhythm. No murmur heard. Normal peripheral pulses. ABDOMEN: Soft, nontender, nondistended, normal active bowel sounds. MSK: Normal range of motion. No
[2023-02-28 11:40] LABS: Acetaminophen < 10 ug/mL (10-30); Ethanol < 10 mg/dL (<10); Salicylate < 1.0 mg/dL (2-20)
[2023-02-28 11:41] LABS: Alanine Aminotransferase 22 U/L (6-50); Alkaline Phosphatase 124 U/L (38-126); Anion Gap 10 mmol/L (8-16); Aspartate Amino Transferase 32 U/L (17-59); Bilirubin,Total 0.7 mg/dL (0.2-1.3); Blood Urea Nitrogen 8 mg/dL (9-20); Calcium 8.5 mg/dL (8.4-10.2); Carbon Dioxide 30 mmol/L (22-30); Chloride 100 mmol/L (98-107); Estimated CRCL calculation 86 ml/min; Estimated Glomerular Filt Rate > 60; Glucose 249 mg/dL (65-110); Potassium 2.9 mmol/L (3.4-5.0); Sodium 140 mmol/L (137-145)
--- NOTE | 2023-02-28 11:44 | PC.NURSE ---
pt states i have had a break in reality, things arent what i thought they were . pt admits to suicidial ideations and a plan to shoot himself in the head with one of his guns. states does have acces to firearms. per family pt does have frontal lobe dementia. pt tense, angry, poor impulse control. will not discuss what changed to make him feel this way. tearful at times.
[2023-02-28 11:59] LABS: Appearance Urine Cloudy (Clear); Bacteria Urine None Seen /hpf; Bilirubin Urine Negative (Negative); Blood Urine Negative (Negative); Color Urine Yellow (Yellow); Glucose Urine UA Trace mg/dL (Negative); Ketones Urine Trace mg/dL (Negative); Leukocyte Esterase Ur Negative LEU/UL (Negative); Nitrate Urine Negative (Negative); Non Pathogenic Casts 0-2; Protein Urine 1+ mg/dL (Negative); RBC Urine 0-2 /hpf (0-2); Specific Grav Ur 1.019 (1.001-1.035); Squamous Epithelial Cell Urine None seen /hpf (Few); WBC Urine 0-5 /hpf; pH Urine 6.5 (5.0-9.0)
[2023-02-28 12:00] LABS: Add Urine Microscopic? YES
[2023-02-28 12:06] LABS: SARS-CoV-2 RNA PCR Positive (Negative)
[2023-02-28 12:11] LABS: Thyroid Stimulating Hormone 0.758 uIU/mL (0.465-4.680)
[2023-02-28] MEDS: POTASSIUM CHLORIDE 20 MEQ ER TABLET 40 MEQ PO (12:16)
[2023-02-28] MEDS: LORazepam (*CRX) 0.5 MG TABLET (12:49)
--- NOTE | 2023-02-28 12:49 | PC.NURSE ---
pt somewhat anxious, offered anxiety med pt agreeable vorb from Dr Guevara to give Ativan 0.5mg PO X1
--- NOTE | 2023-02-28 13:00 | PC.NURSE ---
crisis in dept to evaluate pt
[2023-02-28 13:04] LABS: Amphetamine Screen Urine Negative (Negative); Barbiturate Screen Urine Negative (Negative); Benzodiazepines Screen Urine Negative (Negative); Cannabinoid Screen Urine Positive (Negative); Cocaine Screen Urine Negative (Negative); Methadone Screen Urine Negative (Negative); Opiate Screen Urine Negative (Negative); Phencyclidine Screen Urine Negative (Negative)
--- NOTE | 2023-02-28 18:10 | PC.NURSE ---
pt pacing in room. then rammed his head into the door and fell to ground. security notified. care coordination at bedside.
[2023-02-28] MEDS: GABAPENTIN 300 MG CAPSULE 900 MG PO (18:51)
[2023-02-28] MEDS: HALOPERIDOL LACTATE 5 MG/ML VIAL IM (18:51)
[2023-02-28] MEDS: LORazepam INJ (*CRX) 2 MG/ML VIAL IM (18:51)
[2023-02-28] MEDS: NICOTINE (*PBKC) 14 MG PATCH 1 PATCH TRANSDERM (20:55)
[2023-03-01] MEDS: DESIPRAMINE HCL 10 MG TABLET PO ×2 (02:27→21:06)
[2023-03-01 05:33] VITALS: BP 156/88; PULSE 78; RESP 16; TEMP 36.4; O2SAT 99
[2023-03-01] MEDS: ROSUVASTATIN 10 MG TABLET PO (09:00)
[2023-03-01] MEDS: PARoxetine 20 MG TABLET 40 MG PO (09:00)
[2023-03-01] MEDS: MEMANTINE 10 MG TABLET PO (09:00)
[2023-03-01] MEDS: MELOXICAM 7.5 MG TABLET 15 MG PO (09:00)
--- NOTE | 2023-03-01 11:36 | PC.NURSE ---
Mirlande with [facility] called and states she will be here around 2pm to reevaluate pt.
[2023-03-01 12:42] VITALS: BP 136/84; PULSE 85; O2SAT 98
--- NOTE | 2023-03-01 14:22 | PC.NURSE ---
updated pt and family. Mirlande with crisis reports pt still needing to be placed. no updates from any facilities at this time. pt resting in stretcher with sitter at bedside.
--- NOTE | 2023-03-01 14:59 | PC.NURSE ---
Patient asked to leave d/t patient and patient being COVID+. Patient actively coughing while reporting she just finished paxlovid . Patient requesting patient be tested again. Patient actively coughing at this time. Patient took 3 bags worth of belongings. Patient located patients cellphone in 1 of the bags. Patient given pocket knife and vape from safe. Patient agitated was asked to leave.
--- NOTE | 2023-03-01 14:59 | PC.NURSE ---
pt and family member covid positive. family member asked to leave due to policy of no visitors for covid positive pt's. family member took all of pt's belongings. will keep family member updated on status of pt. no other concerns at this time.
--- NOTE | 2023-03-01 15:46 | PC.NURSE ---
Patient asking to speak to someone in charge . This RN spoke with patient. Patient found pacing in room with arms crossed and grimacing. Patient reporting keeping me locked up and away from my family and everything I own for two days against my will is driving me insane. It is driving me deeper and deeper. Patient statement acknowledged by this RN. EDP, Dr. Guevara made aware and to order medication for patient agitation.
[2023-03-01] MEDS: LORazepam (*CRX) 1 MG TABLET PO (15:55)
--- NOTE | 2023-03-01 17:16 | PC.NURSE ---
ordered pt safety tray.
[2023-03-01] MEDS: LORazepam (*CRX) 1 MG TABLET 2 MG PO (22:25)
--- NOTE | 2023-03-01 23:19 | PC.NURSE ---
Report received from ELIZABETH Ma. Assumed care of patient at this time.
[2023-03-02] VITALS (51 sets, daily range): BP systolic 116–174; BP diastolic 64–115; PULSE 67–148; RESP 14–22; O2SAT 91–100
[2023-03-02] MEDS: MELATONIN 5 MG TABLET PO (00:12)
[2023-03-02] MEDS: diphenhydrAMINE HCl CAP 25 MG CAPSULE 50 MG PO (00:13)
[2023-03-02] MEDS: LORazepam INJ (*CRX) 2 MG/ML VIAL IM ×4 (03:33→08:22)
[2023-03-02] MEDS: HALOPERIDOL LACTATE 5 MG/ML VIAL IM ×5 (03:33→17:11)
--- NOTE | 2023-03-02 03:33 | PC.NURSE ---
Patient pacing and getting verbally aggressive in room. Patient attempting to leave room. ERP notified and orders received. Patient given meds IM.
--- NOTE | 2023-03-02 04:05 | PC.NURSE ---
Patient ambulating in the hallway with steady gait, states I wan't to leave, I am going home. Patient instructed to go back to his room. Patient ambulated back to the room, unassisted. ERP notified and new med orders placed.
[2023-03-02] MEDS: MIDAZOLAM HCL (*CRX) 2 MG/2 ML VIAL IM (04:15)
--- NOTE | 2023-03-02 05:39 | PC.NURSE ---
Patient still wandering and pacing in hallway and room. Patient repeatedly instructed to go back to his room. Sitter remains at bedside. Patient still verbally aggressive, new orders placed for meds. Meds given by this RN.
--- NOTE | 2023-03-02 07:05 | PC.NURSE ---
Patient in room, wandering and attempting to get in the face of the sitter. Security called and arrives at bedside. Patient starting to yell and attempting to hit security. ERP notified and med orders placed. ERP also orders hard restraints ordered. Patient given meds IM and then placed in restraints with ERP at bedside.
--- NOTE | 2023-03-02 07:43 | PC.NURSE ---
Patient screaming you can all eat fucking shit , I'm going to fucking kill you. EDP aware.
--- NOTE | 2023-03-02 07:49 | PC.NURSE ---
Patient continuing to scream and thrashing violently. Attempting to assess VS. Patient screaming, Get this off my fucking hand when pulse ox placed. Security remains at bedside.
--- NOTE | 2023-03-02 07:51 | PC.NURSE ---
EDP Dr. Obregon made aware of elevated HR.
[2023-03-02] MEDS: SODIUM CHLORIDE 0.9% IV 1,000 ML 999 ML IV CONT ×2 (09:03→18:43)
[2023-03-02 09:20] LABS: Hematocrit 36.6 % (42.0-52.0); Hemoglobin 12.4 g/dL (14.0-18.0); Immature Granulocyte Absolute 0.01 K/mm3 (0.00-0.031); Immature Granulocyte Percent A 0.2 % (0-0.5); Immature Platelet Fraction Pct 7.5 % (0.9-11.2); Lymphocytes Absolute Auto 0.34 K/mm3 (0.9-3.2); Lymphocytes Percent Auto 8.1 % (18.3-44.2); Mean Corpuscular HGB Conc 33.9 g/dl (32-36); Mean Corpuscular Hemoglobin 31.2 pg (26-34); Mean Corpuscular Volume 92.2 fl (80-100); Mean Platelet Volume 11.4 fl (7.4-10.4); Monocytes Absolute Auto 0.2 K/mm3 (0.1-0.6); Monocytes Percent Auto 4.5 % (2.6-8.5); Neutrophils Absolute Auto 3.7 K/mm3 (1.3-6.7); Neutrophils Percent Auto 87.2 % (45.5-73.1); Red Blood Count 3.97 M/mm3 (4.6-6.20); Red Cell Distribution Width 11.9 % (11.5-14.5); White Blood Count 4.2 K/mm3 (4.5-10.0)
[2023-03-02 09:22] LABS: Platelet Count Result 121 k/mm3 (150-375)
[2023-03-02 09:30] LABS: Alanine Aminotransferase 25 U/L (6-50); Albumin Level 3.7 g/dL (3.5-5.1); Alkaline Phosphatase 138 U/L (38-126); Anion Gap 11 mmol/L (8-16); Aspartate Amino Transferase 41 U/L (17-59); Bilirubin,Total 1.1 mg/dL (0.2-1.3); Blood Urea Nitrogen 10 mg/dL (9-20); Calcium 8.4 mg/dL (8.4-10.2); Carbon Dioxide 28 mmol/L (22-30); Chloride 102 mmol/L (98-107); Creatine Kinase 422 U/L (55-170); Estimated CRCL calculation 86 ml/min; Estimated Glomerular Filt Rate > 60; Glucose 137 mg/dL (65-110); Potassium 2.9 mmol/L (3.4-5.0); Sodium 141 mmol/L (137-145)
--- NOTE | 2023-03-02 11:42 | PC.NURSE ---
pt began trying to get up out of bed and was not following verbal requests from RN, security, or provider. pt was stating they are trying to leave but denies knowing where they are at. pt had unsteady gait when ambulating and was slowly directed to the bed. MD stated to give ativan iv 2mg stat so the pt does not harm themselves or anyone around.
[2023-03-02] MEDS: LORazepam INJ (*CRX) 2 MG/ML VIAL IV PUSH ×2 (11:56→17:11)
--- NOTE | 2023-03-02 12:01 | PC.NURSE ---
Patient screaming get me out of here and attempting to get up from stretcher while in restraints.
--- NOTE | 2023-03-02 12:36 | PC.NURSE ---
[facility] called stated no beds within [facility] for this patient
--- NOTE | 2023-03-02 13:38 | PC.NURSE ---
1330 accepted at [facility] pt placed on wait list
--- NOTE | 2023-03-02 13:49 | PC.NURSE ---
pt began trying to get out of bed again and threatened to hurt staff. pt was unsteady of feet but was placed back in bed by staff. deescalation attempt successful at this time, no restraints needed.
--- NOTE | 2023-03-02 14:10 | PC.NURSE ---
pt has been refusing taking home medications at this time. offered pt water multiples times and they took a small sip.
--- NOTE | 2023-03-02 17:12 | PC.NURSE ---
pt to refusing to take oral medications. pt educated on use and would still like to refuse. pt is currently agitated and threatening to harm staff. notified
[2023-03-02] MEDS: HYDROmorphone HCL INJ (*CRX) 1 MG/ML SYR IM (18:18)
[2023-03-02 19:09] LABS: CRP 1.6 mg/dL (<1.0)
[2023-03-02 19:18] LABS: Erythrocyte Sedimentation Rate 110 mm/hr (0-20)
--- NOTE | 2023-03-02 19:54 | PC.NURSE ---
bobo from crisis called and stated the only facility available to accept a covid+ pt is [facility], however they do not have any beds at this time. Bobo stated she would keep us updated on the process
--- NOTE | 2023-03-02 21:16 | PC.NURSE ---
pt still refuses to take PO meds at this time. pt educated on use and still declines
--- NOTE | 2023-03-02 23:03 | PC.NURSE ---
pt care and report given to ELIZABETH Weston. all questions answered.
--- NOTE | 2023-03-02 23:28 | PC.NURSE ---
This RN noted pt to be attempting to get out of bed. Pt noted to have unsteady gait while attempting to ambulate. Pt started to become agitated when this RN attempted to redirect him to bed. Pt was then assisted to chair at bedside, and was able to be redirected and able to follow commands at that time. Pt given water and offered food, but pt declined. Pt also declined home medications. Pt linen changed as well as new clothes given. Resting back on stretcher with lights dimmed and sitter at bedside. A&Ox1, alert to self.
[2023-03-03 01:38] VITALS: PULSE 73; RESP 14; O2SAT 98
[2023-03-03 02:56] VITALS: BP 185/106; PULSE 81; RESP 16; O2SAT 100
[2023-03-03] MEDS: traZODone HCL 50 MG TABLET 100 MG PO ×2 (03:05→20:52)
[2023-03-03] MEDS: MEMANTINE 10 MG TABLET PO (03:06)
[2023-03-03] MEDS: PARoxetine 20 MG TABLET 40 MG PO (03:07)
[2023-03-03] MEDS: ROSUVASTATIN 10 MG TABLET PO (03:08)
[2023-03-03] MEDS: MELOXICAM 7.5 MG TABLET 15 MG PO ×2 (03:09→09:18)
[2023-03-03] MEDS: NICOTINE (*PBKC) 14 MG PATCH 1 PATCH TRANSDERM (03:11)
[2023-03-03] MEDS: POTASSIUM CHLORIDE 20 MEQ PACKET (FOR LIQUID) 40 MEQ PO ×3 (03:11→17:40)
--- NOTE | 2023-03-03 03:21 | PC.NURSE ---
Pt A&Ox3 at this time, attempting to get out of bed. Pt redirectable and agreeable to take home medications. Sitter at bedside
[2023-03-03 03:52] VITALS: O2SAT 94
[2023-03-03 06:58] VITALS: PULSE 68; RESP 14; O2SAT 100
--- NOTE | 2023-03-03 07:42 | PC.NURSE ---
general precautionary breakfast tray ordered
[2023-03-03 08:00] VITALS: BP 126/74; PULSE 78; RESP 16; TEMP 36.6; O2SAT 98
[2023-03-03] MEDS: GABAPENTIN 300 MG CAPSULE 600 MG PO ×3 (09:18→20:51)
[2023-03-03 09:47] LABS: Influenza A QL RT-PCR Negative (Negative); Influenza B QL RT-PCR Negative (Negative); RSV RNA, RT-PCR Negative (Negative); SARS-CoV-2 RNA PCR Positive (Negative)
[2023-03-03 15:23] VITALS: BP 130/91; PULSE 98; RESP 16; TEMP 36.6; O2SAT 100
--- NOTE | 2023-03-03 19:31 | PC.NURSE ---
THIS RN ASSUMED CARE OF PATIENT. THIS RN TOOK PATIENT REPORT FROM ELIZABETH XAVIER.
[2023-03-03] MEDS: DESIPRAMINE HCL 10 MG TABLET PO (20:53)
[2023-03-04 07:29] VITALS: BP 123/81; PULSE 104; RESP 16; TEMP 36.6; O2SAT 95
[2023-03-04] MEDS: MELOXICAM 7.5 MG TABLET 15 MG PO (08:38)
[2023-03-04] MEDS: POTASSIUM CHLORIDE 20 MEQ PACKET (FOR LIQUID) 40 MEQ PO (09:09)
[2023-03-04] MEDS: ROSUVASTATIN 10 MG TABLET PO (09:11)
[2023-03-04] MEDS: MEMANTINE 10 MG TABLET PO (09:11)
[2023-03-04] MEDS: PARoxetine 20 MG TABLET 40 MG PO (09:12)
[2023-03-04] MEDS: GABAPENTIN 300 MG CAPSULE 600 MG PO ×2 (09:12→14:15)
[2023-03-04] MEDS: NICOTINE (*PBKC) 14 MG PATCH 1 PATCH TRANSDERM (09:13)
[2023-03-04 10:16] VITALS: BP 126/88; PULSE 106; RESP 17; O2SAT 96
--- NOTE | 2023-03-04 12:41 | PCCCNOTE ---
ED requesting CC contact spouse for discharge to facility or take home. Call placed to spouse Lauro. She states she spoke with her metropolitan editor and obtaining HCPOA paperwork from them as pt destroyed what she had. She does not have guardianship. When asked about placement to memory care facility or take home, she stated if she placed him in a facility, they would take all his income which is what she lives off of as she quit working to take care of him. She also stated she is too afraid he will harm her, to bring him home. She states pt is supposed to have some kind of custodial insurance but she doesn't know what it covers. She was emailed a list of memory care facilities to start calling to see if they can take him and evaluate finances/exterminator helper insurance plan for coverage. Call placed to Crisis. Maulik from crisis will call [facility] as it was taking covid + but had no beds avail Sat. He will see if there are beds avail today. He will call back with information.
[2023-03-04 14:16] VITALS: BP 126/89; PULSE 106; RESP 16; O2SAT 96
--- NOTE | 2023-03-04 15:20 | PCCCNOTE ---
Call placed to Maulik with Crisis. He met with pt and spoke with ER provider and spouse. Pt does not appear to be a harm to himself or others at this time. His discharge plan is to go home with his dtr at this time with a safety plan. Maulik offered assessment to spouse in future if situation changes.
[2023-03-04 16:09] VITALS: BP 138/81; PULSE 106; RESP 15; O2SAT 99
--- NOTE | 2023-03-04 16:43 | PCCCNOTE ---
Family at bedside. Spoke with pt, spouse and eldest dtr present. They confirmed that pt is to be discharged with safety contract, which they had in hand. Pointed out the crisis phone number that they can call at any time if needed. Spouse confirmed that she received the list of facilities for memory care and was repeated to her and dtr that the pt's terminal clerk insurance policy would need to be reviewed to see exactly what it would cover and to supply to facility they are interested in to see if they are accepting. If insurance doesn't cover, a terminal clerk memory care facility would be paid for out of pocket at least until funds run out and pt would go onto public aid and then if the facility would accept that. Pt to be discharged home with spouse and dtr and they will be providing transportation.
[2023-03-04 17:29] VITALS: BP 134/89; PULSE 97; RESP 15; O2SAT 96
== END 2023-03-04 17:35 | disposition home or self-care (01) ==
PROVIDERS: Emergency Medicine; Emergency Provider Emergency Medicine; PCP Nurse Practitioner
DX: R45.851 Suicidal ideations (principal); U07.1 COVID-19; E87.6 Hypokalemia; F03.90 Unspecified dementia, unspecified severity, without behavioral disturbance, psychotic disturbance, mood disturbance, and anxiety; I10 Essential (primary) hypertension; E11.9 Type 2 diabetes mellitus without complications; E78.2 Mixed hyperlipidemia; M19.012 Primary osteoarthritis, left shoulder; F17.290 Nicotine dependence, other tobacco product, uncomplicated; Z86.718 Personal history of other venous thrombosis and embolism; Z86.73 Personal history of transient ischemic attack (TIA), and cerebral infarction without residual deficits; Z79.899 Other long term (current) drug therapy; R94.31 Abnormal electrocardiogram [ECG] [EKG]; M47.812 Spondylosis without myelopathy or radiculopathy, cervical region; N20.0 Calculus of kidney; K40.90 Unilateral inguinal hernia, without obstruction or gangrene, not specified as recurrent
CPT/HCPCS: 36415; 70450; 71260; 72125; 74177; 80053; 80307; 81001; 82550; 84443; 85025; 85055; 85652; 86140; 87635; 87637; 93005; 96361; 96372; 96374; 96376; 99284; A9270; J1170; J1630; J2060; J2250; J2359; J7030; Q9967

== ENCOUNTER 2023-06-19 09:33 | Emergency (ER) | payer MEDICARE, SELFPAY ==
[2023-06-19 09:45] VITALS: BP 141/93; PULSE 86; RESP 18; TEMP 36.4; O2SAT 99
[2023-06-19 09:52] VITALS: BP 141/93; PULSE 86; RESP 18; TEMP 36.4; O2SAT 99
--- NOTE | 2023-06-19 09:54 | ED.SKABFB ---
HPI - Skin/Abscess/Foreign Bdy General Chief complaint: Skin/Abscess/Foreign Body Stated complaint: Spider Bite on Back Time Seen by Provider: 06/19/23 09:54 Source: patient Mode of arrival: ambulatory Limitations: no limitations History of Present Illness HPI narrative: 63-year-old male presents with complaint of redness, swelling, pain and itching to left lower back. Symptoms for 5 days. Patient states that he felt the bite. Is concerned spider bite. Two days ago states that his daughter who is a nurse tried to Gurjit open insect bite but no drainage came out. Afebrile. No body aches or chills. All systems reviewed and negative except as noted above. Related Data Home Medications Medication Instructions Recorded Confirmed desipramine 10 mg tablet 10 mg PO QID 03/31/20 06/19/23 gabapentin 600 mg tablet 900 mg PO TID 06/03/20 06/19/23 meloxicam 15 mg tablet 15 mg PO DAILY 06/03/20 06/19/23 memantine 10 mg tablet 10 mg PO QPM 12/26/22 06/19/23 trazodone 100 mg tablet 100 mg PO HS 06/19/23 06/19/23 Allergies Allergy/AdvReac Type Severity Reaction Status Date / Time codeine AdvReac Intermediate Nausea And Verified 06/19/23 09:41 Vomiting Review of Systems Review of Systems: CONSTITUTIONAL: Denies fever, chills, or sweats. EYES: Denies visual changes, redness, or discharge. ENT: Denies rhinorrhea, congestion, sore throat, or otalgia. CARDIOVASCULAR: Denies chest pain, palpitations, or edema. RESPIRATORY: Denies cough or dyspnea. GASTROINTESTINAL: Denies abdominal pain, nausea, vomiting, or diarrhea. GENITOURINARY: Denies dysuria or hematuria. SKIN: Denies rash or itching. Reports redness, itching, swelling and tenderness to left side of back. MUSCULOSKELETAL: Denies back pain, joint pain, or myalgia. NEUROLOGIC: Denies headache, numbness, or weakness. PSYCHIATRIC: Denies anxiety or depression. All other systems reviewed are negative, except as documented in HPI. [facility]LY [facility] Past Medical History Medical History Arthritis of left shoulder region Benign essential hypertension Brachial neuritis of left upper extremity Dementia History of TIAs Hx of deep venous thrombosis Mixed hyperlipidemia Screening for prostate cancer Skin lesions Type 2 diabetes mellitus Family History Family History Mother Family history of heart disease in male family member before age 55 Grandparent Family history of heart disease in male family member before age 55 Other Family history of dementia Hypertension Social History Social History Smoking status: Current every day smoker Tobacco type: e-cigarettes/vaping Alcohol intake: never Substance use: current Substance use type: does not use Comments At time of signature, agree with nursing past medical, surgical, social and family history. There is no relevant family history pertinent to the presenting complaint. Exam Narrative: GENERAL: This is a well-nourished, well-developed patient, in no apparent distress. HEAD: normocephalic, atraumatic. EYES: PERRL. Sclera clear/white. Vision is grossly intact. EARS: External ears normal NOSE: External nose normal NECK: Neck supple, non-tender without lymphadenopathy, masses or thyromegaly. CARDIOVASCULAR: Regular rate and rhythm without murmurs, gallops, or rubs. RESPIRATORY: Clear to auscultation. Breath sounds equal bilaterally. No wheezes, rales, or rhonchi. SKIN: warm, Dry, intact with no suspicious lesions or rash, good texture and turgor. erythematous and swelling approx 4x3cm no fluctuance. warm to touch. no necrotic tissue noted. NEURO: awake, alert, and oriented to person, place and time. There were no obvious focal neurologic abnormalities. EXTREMITIES: No joint tenderness, effusion, or edema noted. Course Course Level of Care:
== END 2023-06-19 10:11 | disposition home or self-care (01) ==
PROVIDERS: Emergency Provider Nurse Practitioner Family; PCP Nurse Practitioner
DX: S30.860A Insect bite (nonvenomous) of lower back and pelvis, initial encounter (principal); L08.9 Local infection of the skin and subcutaneous tissue, unspecified; F17.290 Nicotine dependence, other tobacco product, uncomplicated; M19.012 Primary osteoarthritis, left shoulder; I10 Essential (primary) hypertension; F03.90 Unspecified dementia, unspecified severity, without behavioral disturbance, psychotic disturbance, mood disturbance, and anxiety; E78.2 Mixed hyperlipidemia; E11.9 Type 2 diabetes mellitus without complications; Z86.73 Personal history of transient ischemic attack (TIA), and cerebral infarction without residual deficits; Z86.718 Personal history of other venous thrombosis and embolism
CPT/HCPCS: 99213; G0463

== ENCOUNTER 2024-04-15 00:57 | Day surgery (SDC) | payer MEDICARE, SELFPAY ==
[2024-03-31 14:55] VITALS: BMI 25.4
--- OUTSIDE RECORDS SUMMARY | 2024-04-15 01:00 | XMS_ITS | Patient Health Record ---
Author Organization [facility] Address [address] [place] [address] Care Team Providers Care [place] Name Role Phone Luis Alberto Aparicio Primary Care Provider [phone] Charmaine Stanford Unavailable [phone] Allergies Allergen (clinical drug ingredient) Drug/Non Drug Allergy documented on EMR Reaction Allergy Type Onset Date Status codeine Codeine Sulfate nausea and vomiting Drug Allergy Active Reason For Referral No Information Medications Medication SIG (Take, Route, Frequency, Duration) Notes Start Date End Date Status PARoxetine HCl 40 MG 1 tablet in the mor renetta Orally Once a day for 30 days Active Namenda 10 MG 1 tablet Orally Once a day Active Meloxicam 15 MG 1 tablet Orally Once a day Active Gabapentin 600 MG 1 tablet Orally thre e times a day Active Desipramine HCl 10 MG 1 tablet Orally tw ice a day Active ARIPiprazole 2 MG TAKE 1 TABLET BY MELVIN TH EVERY DAY for 30 Active traZODone HCl 100 MG TAKE 1 TABLET BY MO UTH EVERY NIGHT AT BEDTIME for 30 Active hydrOXYzine Pamoate 25 MG 1 capsule thre e times a day prn anxiety Orally Once a day for 30 days Active Social History Tobacco Use: Social History Observation Description Date Details (start date - stop date) Never Smoker NA - NA Tobacco Control (Standard) Question Answer Notes Tobacco use: Nonsmoker Section Notes: PRESCRIPTION #FILLEDWRITTEND RUG LABELQTYDAYSSTRENGTHMMEPRESCRIBERPHARMACYREFILL NO.REFILLSSTATEPATIENT [id number] Milton Batista C, Md - [id number] John of God [id number]//[id number] MGNAFaEmma heard Md [id number] Marion General Hospital, [id number]//[id number] MGNAFaber, Emma Simeon [id number] Health [facility], [id number]//[id number] MGNAFaberEmma Md [id number] PRESCRIPTION # FILLED WRITTE N DRUG LABEL QTY DAYS STRENGTH MME PRESCRIBER PHARMACY REFILL NO. REFILLS STATE PATIENT [id number] 03/17/2023 08/15/2022 Gabapentin 405.0 90 600 MG NA Emma Glass Md [id number] [place], [place] NA 3 [place] [id number] 03/04/2023 03/04/2023 LORazepam 7.0 3 0.5 MG NA Milton Guevara C, Md - [id number] [place], [place] NA 0 [place] [id number] 11/26/2022 08/15/2022 Gabapentin 405.0 90 600 MG NA Emma Glass Md [id number] [facility] Problems Problem Type SNOMED Code ICD Code Onset Dates Problem Status W/U Status Risk Notes Problem Mood disorder (79722504) Mood disorder (F39) 03/18/2023 Active confirmed Problem Anxiety (94941298) Anxiety (F41.9) 03/18/2023 Active confirmed Problem Mild recurrent major depression (39505934) MDD (major depressive disorder), recurrent episode, mild (F33.0) 03/18/2023 Active confirmed Encounters Encounter Location Date Provider Diagnosis [address] [address] 04/16/2023 Charmaine Stanford Mood disorder F39 ; MDD (major depressive disorder), recurrent episode, mild F33.0 and Anxiety F41.9 Assessments Encounter Date Diagnosis (ICD Code) Assessment Notes Treatment Notes Treatment Clinical Notes Section Notes 04/16/2023 Mood disorder (ICD-10 - F39) 04/16/2023 MDD (major depressive disorder), recurrent episode, mild (ICD-10 - F33.0) Encouraged counseling. Will have disclosures signed for recent labs. Continue Trazodone and Paxil. Follow up in 4 weeks or earlier if needed. 04/16/2023 Anxiety (ICD-10 - F41.9) 04/16/2023 Other Patient was edu cated on diagnosis and symptoms. Discussed the treatment plan, patient is agreeable and accepting of treatment plan. Patient denies further questions or concerns currently. Discussed sleep hygiene and caffeine intake. Encouraged to improve diet, get regular exercise, daily relaxation, and work on managing stress levels.Return to clinic 4 weeks.Need disclosure for medical records and labs from 02/2023.. Encouraged counseling.The Patient/Guardian is aware of the need to contact the office or return for an earlier appointment if any problems or concerns arise. May also contact the 24-hour crisis hotline ([facility]), refer to the closest emergency room or call 911 if new symptoms arise of existing symptoms worsen; the Patient/Guardian is aware that this would apply to symptoms such as: suicidal ideation, homicidal ideation, high risk behaviors, manic symptoms, psychotic symptoms, physical symptoms, or any other symptoms that may be dangerous to self or others.Greater than 50% of time spent on coordination and counseling where psychopharmacology as well as psychotherapeutic interventions were discussed along with review of treatments in the past.Patient/Guardian was educated about treatments including benefits and risks, alternatives, potential medication side effects, black box warning, and risks of failure if not treated. The Patient/Guardian asked appropriate questions, appeared to understand the answers, and decided to accept the treatment and continue being followed.Discussed the importance of compliance with medications due to the risk of relapse of symptoms.Discussed the risks of taking psychotropic medication when combined with substance use/abuse and/or drinking alcohol. Client was educated about risks and benefits of medication, alternative to medication, alternative to no medications, suicidal ideation with SSRI, education related to psychiatric illness, self-administration, compliance with medication, storage and safeguarding of medication. Will assess appropriateness of medication reduction after client shows stability in current clinical s/s. Reduction will not result in a negative outcome. Plan Of Treatment No Information Insurance Providers Payer Name Payer Address Payer Phone Subscriber Number Group Number Insured Name Patient Relationship to Insured Coverage Start Date Coverage End Date [employer] Medicare [address] [address] [place] [phone] [id number] Pavel Davis Self - patient is the insured 4 Medical (General) History Medical History History ICD Code Dementia Borderline Diabetes Left arm injury, chronic pain Surgical History Surgery Date(Month/Year) appendectomy hemorrhoidectomy cyst removal from right ankle right shoulder- torn bicep repair left elbow repair
--- OUTSIDE RECORDS SUMMARY | 2024-04-15 01:00 | XMS_ITS | Clinical Summary ---
Author Organization [facility] Address [facility] [place] [address] Care Team Providers Care Wig Stylist Name Role Phone None, Provider MD Primary Care Provider Unavaila ble Allergies No known active allergies Medications No known medications Immunizations Name Administration Dates Next Due Tdap (Boostrix) 08/23/2023 Social History Tobacco Use Types Packs/Day Years Used Date Smoking Tobacco: Never Smokeless Tobacco: Never Tobacco Cessation:Counseling Given: Not Answered Alcohol Use Standard Drinks/Week Comments Never 0 (1 standard drink = 0.6 oz pur e alcohol) Sex and Gender Information Value Date Recorded Sex Assigned at Not on file Legal Sex Male 1:28 PM CDT Gender Identity Not on file Sexual Orientation Not on file Last Filed Vital Signs Vital Sign Reading Time Taken Comments Blood Pressure 160/84 08/23/2023 4:15 PM CDT Pulse 70 08/23/2023 4:15 PM CDT Temperature 36.9 C (98.4 F) 08/23/2023 1:38 PM CDT Respiratory Rate 18 08/23/2023 1:38 PM CDT Oxygen Saturation 94% 08/23/2023 4:30 PM CDT Inhaled Oxygen Concentration - - Weight 87.9 kg (193 lb 12.6 oz) 08/23/2023 1:38 PM CDT Height 180.3 cm (5' 11 ) 08/23/2023 1:38 PM CDT Body Mass Index 27.03 08/23/2023 1:38 PM CDT Plan of Treatment Health Maintenance Due Date Last Done Comments Colorectal Cancer Screening Colonoscopy (10 Years) 1958 Hepatitis C 1976 RSV Immunization or 60+ Years (1 - Risk 60-74 years 1-dose series) 2018 COVID-19 Vaccine (3 - season) 2023 06/03/2020, 05/13/2020 Influenza Adult (#1) 2023 01/29/2022, 01/05/2019, 12/15/2012, Additional history exists DTaP, Tdap and Td Vaccines (3 - Td or Tdap) 08/22/2033 08/23/2023, 10/23/2017 Pneumococcal Vaccine: 65+ Years Completed 07/09/2022 Pneumococcal Vaccine: Pediatrics (0 to 5 Years) and At-Risk Patients (6 to 64 Years) Aged Out 07/09/2022 No longer eligible based on patient's age to complete this topic Zoster Vaccines Completed 07/09/2022, 01/31/2022 Meningococcal B Vaccine Aged Out No l onger eligible based on patient's age to complete this topic Meningococcal Vaccine Aged Out No brenda ollie eligible based on patient's age to complete this topic RSV Immunizations Under 20 Months Aged Out No longer eligible based on patient's age to complete this topic Insurance [facility] Care Teams Wig Stylist Relationship Specialty Start Date End Date None, Provider, MD PCP - General UNKNOWN PHYSICIAN SPECIALTY 08/23/23
--- OUTSIDE RECORDS SUMMARY | 2024-04-15 01:00 | XMS_ITS | Clinical Summary ---
Author Organization [facility] Address [address] [place] [address] Phone Care Team Providers Care Shaving Machine Operator Name Role Phone Provider, Unknown Primary Care Provider Unavaila ble Allergies No known active allergies Medications No known medications Social History Tobacco Use Types Packs/Day Years Used Date Smoking Tobacco: Former Cigarettes Smokeless Tobacco: Never Tobacco Cessation:Counseling Given: Not Answered Alcohol Use Standard Drinks/Week Comments Not Currently 0 (1 standard drink = 0.6 oz pur e alcohol) Sex and Gender Information Value Date Recorded Sex Assigned at Not on file Legal Sex Male 10:22 AM CDT Gender Identity Not on file Sexual Orientation Not on file Last Filed Vital Signs Vital Sign Reading Time Taken Comments Blood Pressure 122/75 11/02/2022 11:30 AM CDT Pulse 70 11/02/2022 11:30 AM CDT Temperature 35.6 C (96 F) 11/02/2022 10:35 AM CDT Respiratory Rate 16 11/02/2022 11:30 AM CDT Oxygen Saturation 99% 11/02/2022 11:30 AM CDT Inhaled Oxygen Concentration - - Weight 97.5 kg (215 lb) 11/02/2022 10:35 AM CDT Height 180.3 cm (5' 11 ) 11/02/2022 10:35 AM CDT Body Mass Index 29.99 11/02/2022 10:35 AM CDT Plan of Treatment Not on file Insurance MEDICARE C [facility] Care Teams Shaving Machine Operator Relationship Specialty Start Date End Date Provider, Unknown UNKNOWN PCP - General 11/02/22
--- OUTSIDE RECORDS SUMMARY | 2024-04-15 01:00 | XMS_ITS | Referral Summary ---
[facility] Organization [facility] Address [address] [place] [address] Care Team Providers Care Roving Carrier Name Role Phone Jose Murillo NP Primary Care Provider [phone] Encounters Date Type Department Care Team Description 01/20/2024 [facility] [address] [facility] [address] [place] [address] Michelle Mathis MA from Last 3 Months Allergies Active Allergy Reactions Criticality Noted Date Comments Codeine Vomiting Low 11/12/2017 Medications PARoxetine (PAXIL) 40 mg tablet take 1 tablet by oral route every day 90 3 12/16/2013 Active clopidogrel (PLAVIX) 75 mg tablet Take 1 tablet (75 mg total) by mouth daily Active traZODone (DESYREL) 50 mg tablet Take 2 tablets (100 mg total) by mouth nightly Take 1-2 tablets at bedtime Active metFORMIN (GLUCOPHAGE) 1,000 mg tablet Take 1 tablet (1,000 mg total) by mouth 2 (two) times a day 02/22/2020 Active OneTouch Delica Plus Lancet 30 gauge misc USE DIRECTED EVERY DAY 06/19/2020 Active OneTouch Verio test strips strip TEST ONCE DAILY DIRECTED 06/19/2020 Active fllkpspv-olj-qt ondroit-vit D3 750 mg-125 mg -600 mg tablet Take by mouth daily Active ALPRAZolam XR (XANAX XR) 1 mg 24 hr tablet Take 1 tablet (1 mg total) by mouth every morning Active rosuvastatin (CRESTOR) 10 mg tablet Take 1 tablet (10 mg total) by mouth daily 10/14/2023 Active coenzyme Q10 400 mg capsule Take by mouth daily Active meloxicam (MOBIC) 15 mg tablet Take 1 tablet (15 mg total) by mouth daily 90 tablet 3 01/01/2024 Active memantine (NAMENDA) 10 mg tabletIndicatio ns:Moderate to Severe Alzheimer's Type Dementia Take 1 tablet (10 mg total) by mouth 2 (two) times a day 180 tablet 3 01/01/2024 01/01/20 Active pregabalin (LYRICA) 75 mg capsule Take 1 capsule (75 mg total) by mouth 2 (two) times a day 60 capsule 5 02/04/2024 08/03/19 25 Active Active Problems Problem Noted Date Diagnosed Date Dementia 02/13/2022 Essential tremor 03/21/2020 Nocturnal enuresis 03/21/2020 Frontotemporal dementia 11/12/2017 Intractable chronic migraine without aura and without status migrainosus 11/12/2017 Fibromyalgia 11/12/2017 Complaints of memory disturbance 06/02/2013 Behavior problem 06/02/2013 Language impairment 06/02/2013 Mood disorder 04/02/2013 Overview (05/31/2016): Mood disorder Fibrositis 01/15/2013 Overview (05/31/2016): Fibromyalgia Migraine 01/15/2013 Overview (05/31/2016): Migraine headache Impaired cognition 01/15/2013 Overview (06/01/2016): Cognitive decline Other amnesia 05/10/2011 Social History Tobacco Use Types Packs/Day Years Used Date Smoking Tobacco: Former Smokeless Tobacco: Never Tobacco Cessation:Counseling Given: Not Answered Alcohol Use Standard Drinks/Week Comments No 0 (1 standard drink = 0.6 oz pur e alcohol) AUDIT-C Answer Date Recorded Frequency of Alcohol Consumption Not on file 01/01/2024 Q2: How many drinks containi ng alcohol do you have on a typical day when you are drinking? Patient does not drink Frequency of Binge Drinking Not on file 07/2023 Sex and Gender Information Value Date Recorded Sex Assigned at Not on file Legal Sex Male 3:37 AM ELECTRONIC DEVICE MONITOR Gender Identity Not on file Sexual Orientation Not on file Last Filed Vital Signs Vital Sign Reading Time Taken Comments Blood Pressure 115/76 01/01/2024 9:59 AM ELECTRONIC DEVICE MONITOR Pulse 71 01/01/2024 9:59 AM ELECTRONIC DEVICE MONITOR Temperature - - Respiratory Rate 16 01/01/2024 9:59 AM ELECTRONIC DEVICE MONITOR Oxygen Saturation 98% 01/01/2024 9:59 AM ELECTRONIC DEVICE MONITOR Inhaled Oxygen Concentration - - Weight 83 kg (183 lb) 01/01/2024 9:59 AM ELECTRONIC DEVICE MONITOR Height 180.4 cm (5' 11.02 ) 01/01/2024 9:59 AM C Body Mass Index 25.51 01/01/2024 9:59 AM ELECTRONIC DEVICE MONITOR Plan of Treatment Not on file Insurance MEDICARE SOLUTIONS MEDICARE SOLUTIONS MEDICARE SOLUTIONS Care Teams Roving Carrier Relationship Specialty Start Date End Date Jose Murillo NP [address] [place] [address] PCP - General Nurse Practitioner 08/15/22
--- OUTSIDE RECORDS SUMMARY | 2024-04-15 01:00 | XMS_ITS | Clinical Summary ---
Author Organization [facility] Address [address] [place] [address] Care Team Providers Care Supervisor Cytogenetic Laboratory Name Role Phone Jose Murillo NP Primary Care Provider Allergies Active Allergy Reactions Criticality Noted Date [...] strip TEST ONCE DAILY DIRECTED 06/19/2020 Active nmjqykby-rml-wi ondroit-vit D3 750 mg-125 mg -600 mg [...] a day 180 tablet 3 01/01/2024 01/01/20 25 Active pregabalin (LYRICA) 75 mg capsule Take [...] Overview (06/01/2016): Cognitive decline Other amnesia 05/10/2011 Encounters Date Type Department Care Team Description 01/20/2024 [facility]phone [facility] [address] Michelle Mathis MA from Last 3 Months Surgical History Surgery Date Site/Laterality Comments ANKLE SURGERY right ankle surgery OTHER SURGICAL HISTORY 02/26/2012 - 02/24/2013 Biceps tendon tear: surgery APPENDECTOMY ANKLE SURGERY ELBOW SURGERY Medical History Medical History Date Comments Congestive heart failure (CMS/HCC) (HCC) congestive heart failure Hx Other Medical DVT Hx Other Medical fibromyalgia sy ndrome Hx Other Medical TIA Hypertension hypertension Hypercholesterolemia high choles terol Hx Other Medical restless leg sy ndrome Hx Other Medical Headache, migra ine Hx Other Medical Biceps tendon t ear Broken arm shattered both b ones in Lt arm Anxiety Arthritis Clotting disorder (CMS/HCC) (HCC) Deep vein thrombosis (CMS/HCC) (HCC) Dementia (HCC) Gout Inflammatory bowel disease Kidney stone Migraines Allergic rhinitis Family History Medical History Relation Name Comments Arthritis Brother Gout Brother Alcohol abuse Mother Arthritis Mother Heart disease Mother Parkinsonism Mother's Sister 2 Parkinson' s disease; Other Mother's Sister 3 Picks dise ase; Relation Name Status Comments Brother Mother Mother's Sister 1 Alive Mother's Sister 2 Mother's Sister 3 Social History Tobacco Use Types Packs/Day Years [...] on file Legal Sex Male 3:37 AM CONCRETE WORKER Gender Identity Not on file Sexual Orientation Not on file Obstetrics History Last Filed Vital Signs Vital Sign Reading Time Taken Comments Blood Pressure 115/76 01/01/2024 9:59 AM CONCRETE WORKER Pulse 71 01/01/2024 9:59 AM CONCRETE WORKER Temperature - - Respiratory Rate 16 01/01/2024 9:59 AM CONCRETE WORKER Oxygen Saturation 98% 01/01/2024 9:59 AM CONCRETE WORKER Inhaled Oxygen Concentration - - Weight 83 kg (183 lb) 01/01/2024 9:59 AM CONCRETE WORKER Height 180.4 cm (5' 11.02 ) 01/01/2024 9:[address] Body Mass Index 25.51 01/01/2024 9:59 AM CONCRETE WORKER Plan of Treatment Health Maintenance Due Date Last Done Comments Colon Cancer Screening-Colonoscopy 1958 Depression Screening 1958 Fall Risk Assessment 1958 Hepatitis C Screening 1960 Prostate Cancer Screening-PSA 1958 Hepatitis B Screening 1976 Zoster Vaccine (1 of 2) 2008 Pneumococcal vaccine 65+ (1 of 1 - PCV) 2023 Well Visit 65+ 2023 Influenza Vaccine (#1) 2023 9, 12/15/2012, 03/06/2012 DTaP/Tdap/Td Vaccine (4 - Td or Tdap) 08/22/2033 08/23/2023, 10/23/2017, 10/10/2016 Abdominal Aortic Aneurysm (A AA) Screen Completed 08/23/2023 Insurance MEDICARE SOLUTIONS MEDICARE [place] [address] Care Teams Supervisor Cytogenetic Laboratory Relationship Specialty Start Date End Date Jose Murillo NP [address] [place], [place] [id number] PCP - General Nurse Practitioner 08/15/22
[2024-04-15 06:23] VITALS: BP 134/79; PULSE 57; RESP 18; TEMP 36.4; O2SAT 100; BMI 25.2
[2024-04-15] MEDS: LACTATED RINGERS 1,000 ML 150 ML IV CONT (06:26)
--- NOTE | 2024-04-15 07:05 | P.PNAN_ITS ---
Anes - Initial Pre Proc Eval Procedure: Operation Date: 04/15/24 07:30 Proposed Procedures p Colonoscopy - Ron Wright MD Date/Time: 04/15/24 07:05 Surgeon: Ron Wright MD Pre Op Diagnosis: fecal abnormalities Patient Data Age: 63 Gender: M Height: 1.78 m Weight: 79.7 kg Last Vital Signs Temp 36.4 C 04/15/24 06:23 Pulse 57 L 04/15/24 06:23 Resp 18 04/15/24 06:23 BP 134/79 04/15/24 06:23 Pulse Ox 100 04/15/24 06:23 O2 Del Method Room Air 04/15/24 06:23 Allergies Allergy/AdvReac Type Severity Reaction Status Date / Time codeine AdvReac Intermediate Nausea And Verified 04/15/24 06:19 Vomiting Home Medications ?Medication ?Instructions ?Recorded ?Confirmed ?Type meloxicam 15 mg tablet 15 mg PO DAILY 06/03/20 04/15/24 History memantine 10 mg tablet 10 mg PO QPM 12/26/22 04/15/24 History paroxetine HCl 40 mg tablet 40 mg PO DAILY #90 tabs 12/09/23 04/15/24 Rx coenzyme Q10 400 mg capsule 400 mg PO DAILY 02/17/24 04/15/24 History pregabalin 75 mg capsule 75 mg PO BID 02/17/24 04/15/24 History rosuvastatin 10 mg tablet 10 mg PO DAILY #90 tabs 02/17/24 04/15/24 Rx trazodone 100 mg tablet 100 mg PO HS #90 tabs 03/19/24 04/15/24 Rx Patient hx anesthesia problems: none Family hx anesthesia problems: none Results Review: All pre-operative results and documents have been reviewed as part of the pre- operative evaluation. 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 Type 2 diabetes mellitus Skin lesions Screening for prostate cancer Dementia Benign essential hypertension History of TIAs Hx of deep venous thrombosis Mixed hyperlipidemia Family History Family History Mother Family history of heart disease in male family member before age 55 Grandparent Family history of heart disease in male family member before age 55 Other Family history of dementia Hypertension Social History Social History (Reviewed 02/17/24 @ 09:59 by Todd De Luna [facility]) Smoking packs per day: 1 Smoking cigarettes per day: 20.0 Years smoked: 50 Smoking pack-years: 50.00 Smoking status: Current every day smoker Tobacco type: cigarettes and e-cigarettes/vaping Alcohol intake: never Substance use: current Substance use type: marijuana Last use: 03/31/2024 Current Housing: Decline to Answer Concerned About Future Housing: Decline to Answer Difficulty Paying Gas/Electric Bills: Decline to Answer Difficulty Paying for Meds: Decline to Answer Currently Unemployed: Decline to Answer Education: Decline to Answer Difficulty w/ Childcare or Family Care: Decline to Answer Living arrangements: with family Spiritual care concerns: No Anes - Eval Final PreProcedure Day of Procedure 04/15/24 07:05 Patient weight: overweight Heart: regular rate and rhythm Lungs: clear to auscultation Airway: Mallampati scale class II Neurological: alert and oriented Last oral intake: >/= 8 hours ASA classification: III Emergent: no Anesthetic plan: proceed Anesthesia type and monitoring: general GIVS and standard monitoring Results Review: All pre-operative results and documents have been reviewed as part of the pre- operative evaluation. Informed Consent: The patient's anesthetic plan and its attendant risks and benefits were discussed with the patient/family/POA. Questions were solicited and answers provided to the satisfaction of the patient/family/POA.
--- NOTE | 2024-04-15 07:38 | PM.HPGS ---
History of Present Illness History of Present Illness Consent: Risks, benefits, and alternatives have been discussed and questions answered. Patient agrees to proceed with procedure. 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 Type 2 diabetes mellitus Skin lesions Screening for prostate cancer Dementia Benign essential hypertension History of TIAs Hx of deep venous thrombosis Mixed hyperlipidemia Family History Family History Mother Family history of heart disease in male family member before age 55 Grandparent Family history of heart disease in male family member before age 55 Other Family history of dementia Hypertension Social History Social History Smoking packs per day: 1 Smoking cigarettes per day: 20.0 Years smoked: 50 Smoking pack-years: 50.00 Smoking status: Current every day smoker Tobacco type: cigarettes and e-cigarettes/vaping Alcohol intake: never Substance use: current Substance use type: marijuana Last use: 03/31/2024 Current Housing: Decline to Answer Concerned About Future Housing: Decline to Answer Difficulty Paying Gas/Electric Bills: Decline to Answer Difficulty Paying for Meds: Decline to Answer Currently Unemployed: Decline to Answer Education: Decline to Answer Difficulty w/ Childcare or Family Care: Decline to Answer Living arrangements: with family Spiritual care concerns: No Meds Home Medications and Allergies Home Medications ?Medication ?Instructions ?Recorded ?Confirmed ?Type meloxicam 15 mg tablet 15 mg PO DAILY 06/03/20 04/15/24 History memantine 10 mg tablet 10 mg PO QPM 12/26/22 04/15/24 History paroxetine HCl 40 mg tablet 40 mg PO DAILY #90 tabs 12/09/23 04/15/24 Rx coenzyme Q10 400 mg capsule 400 mg PO DAILY 02/17/24 04/15/24 History pregabalin 75 mg capsule 75 mg PO BID 02/17/24 04/15/24 History rosuvastatin 10 mg tablet 10 mg PO DAILY #90 tabs 02/17/24 04/15/24 Rx trazodone 100 mg tablet 100 mg PO HS #90 tabs 03/19/24 04/15/24 Rx Allergies Allergy/AdvReac Type Severity Reaction Status Date / Time codeine AdvReac Intermediate Nausea And Verified 04/15/24 06:19 Vomiting Vital Signs Vital Signs - 24 hr 04/15/24 06:23 Temperature 97.6 F Pulse Rate 57 L Respiratory Rate 18 Blood Pressure 134/79 Pulse Oximetry 100 Oxygen Delivery Room Air Exam Const: General: comfortable and no acute distress HENMT: Face/Nose/Sinus: Normal nares present Eyes: General: appearance normal, both eyes and all related structures Neck: Neck: no JVD Resp: Auscultation: clear to auscultation bilaterally Cardio: Rate: regular rate Rhythm: regular rhythm GI: Inspection: non-distended GI Palp: Yes Soft to palpation Skin: General skin exam: normal color Neuro: General: gait normal Speech: normal speech Extrem: General: normal to inspection Psych: Mental Status: mental status grossly normal Assessment and Plan Assessment and plan (1) Positive colorectal cancer screening using Cologuard test: Code(s): R19.5 - Other fecal abnormalities Status: Acute Assessment and Plan: colonoscopy
[2024-04-15 08:02] VITALS: BP 97/52; PULSE 50; RESP 14; O2SAT 98
[2024-04-15 08:12] VITALS: BP 118/92; PULSE 55; RESP 18; O2SAT 100
[2024-04-15 08:22] VITALS: BP 124/88; PULSE 58; RESP 20; O2SAT 97
== END 2024-04-15 08:33 | disposition home or self-care (01) ==
PROVIDERS: PCP Nurse Practitioner Family; Visit Provider Internal Medicine Gastroenterology
PROC: 0DJD8ZZ Inspection of Lower Intestinal Tract, Via Natural or Artificial Opening Endoscopic (ICD-10-PCS; CPT 45378; principal; 2024-04-15 07:30)
DX: C18.7 Malignant neoplasm of sigmoid colon (principal); D12.8 Benign neoplasm of rectum; K64.8 Other hemorrhoids; E11.9 Type 2 diabetes mellitus without complications; I10 Essential (primary) hypertension; E78.2 Mixed hyperlipidemia; D64.9 Anemia, unspecified; F41.9 Anxiety disorder, unspecified; M19.012 Primary osteoarthritis, left shoulder; F03.90 Unspecified dementia, unspecified severity, without behavioral disturbance, psychotic disturbance, mood disturbance, and anxiety; F12.90 Cannabis use, unspecified, uncomplicated; F17.210 Nicotine dependence, cigarettes, uncomplicated; F17.290 Nicotine dependence, other tobacco product, uncomplicated; Z86.718 Personal history of other venous thrombosis and embolism; Z86.73 Personal history of transient ischemic attack (TIA), and cerebral infarction without residual deficits; Z82.49 Family history of ischemic heart disease and other diseases of the circulatory system
CPT/HCPCS: 45385; 45380; 88305; 88342; J2003; J2704; J7120

== ENCOUNTER 2024-04-21 13:39 | Outpatient (CLI) | payer MEDICARE, SELFPAY ==
--- NOTE | ~2024-04-21 | CT_ITS ---
CLINICAL INDICATION: Sigmoid mass COMPARISON: None. TECHNIQUE: Multiple contiguous axial images of the abdomen and pelvis were performed following the ad ministration of with 100 mL Omnipaque-350 intravenous contrast The dose-length product (DLP) was 552.28 mGy-cm. Automated exposure control and iterative reconstruction technique were employed. FINDINGS/OBSERVATIONS: Visualized lower thorax: The bilateral lung bases are clear. The heart is of normal size, without pericardial effusion. Small hiatal hernia is present. Liver: The liver enhances homogeneously and is not enlarged measuring 16 cm in longitudinal dimension. Gallbladder and biliary system: The gallbladder is only minimally distended, and otherwise unremarkable. Pancreas: The pancreas enhances homogeneously without ductal dilatation. Spleen: The spleen enhances homogeneously and is not enlarged measuring 8 cm in longitudinal dimension. Kidneys: The bilateral kidneys enhance symmetrically without hydronephrosis or renal calculi. Adrenal glands: Unremarkable. Gastrointestinal tract: A 4 cm segment of mural thickening and hyperemia is identified within the distal sigmoid/proximal rec gardenia, consistent with patient's history. Colonic diverticulosis is otherwise present, without surrounding inflammatory change. Appendix: The appendix is not definitively visualized. However, no pericecal inflammatory change is identified suggest the presence of acute appendicitis. Vasculature: Unremarkable. No aneurysmal dilatation or significant stenosis. Lymph nodes: No pathologically enlarged or morphologically suspicious lymph nodes within the retroperitoneum or at the root of the mesentery. Pelvic structures: The bladder is only minimally distended, and otherwise unremarkable. The prostate gland is not enlarged, and contains multiple bulky calcifications.. Body wall and musculoskeletal: Small fat-containing bilateral inguinal hernias. Trace degenerative disease within the lumbar spine with osteophyte formation and disc space narrowing . IMPRESSION: Findings consistent with patient's history within the distal colon. No significant retroperitoneal or mesenteric lymphadenopathy. No evidence of metastatic disease within the liver or the bilateral lung bases. Reviewed, dictated and finalized at location A. OMER EXPERIENCE INTERN
[2024-04-21 14:05] LABS: Estimated Glomerular Filt Rate > 60
--- OUTSIDE RECORDS SUMMARY | 2024-04-21 15:38 | XMS_ITS ---
Author Organization [facility] Address [address] [place] [address] Care Team Providers Care Data Compiler Name Role Phone AparicioLuis Alberto meraz Primary Care Provider Charmaine Stanford Unavailable [phone] REASON FOR VISIT 1 Month Psych F/U & Med Refill Medications Medication SIG (Take, Route, Frequency, Duration) Notes Start Date End Date Status Namenda 10 MG 1 tablet Orally Once a day Active Meloxicam 15 MG 1 tablet Orally Once a day Active PARoxetine HCl 40 MG 1 tablet in the mor renetta Orally Once a day for 30 days Active traZODone HCl 100 MG 1 tablet at bedtime Orally Once a day for 30 days Active hydrOXYzine Pamoate 25 MG 1 capsule thre e times a day prn anxiety Orally Once a day for 30 days Active Gabapentin 600 MG 1 tablet Orally thre e times a day Active Desipramine HCl 10 MG 1 tablet Orally tw ice a day Active Abilify 2 MG 1 tablet Orally Once a day for 30 days 03/18/2023 Not-Taking Encounters Encounter Location Date Provider Diagnosis [address] [address] 05/13/2023 Charmaine Stanford Plan Of Treatment No Information Progress Notes * Pavel DAVISDOB:1960 (63 yo M)Acc No.[id number]:05/13/2023 UNLOCKED PROGRESS NOTE Patient: Pavel CRAFT Provider: Bryant Stanford, MSN, AUTOMATION TECHNOLOGIST-BC, PMHNP-BC :1960 A ge:63 Y S ex:Male Date:05/13/2023 Address:[address] [place], [place] [address] , [facility] Pcp:Luis Alberto Aparicio Subjective: * Chief Complaints: * 1 . 1 Month Psych F/U & Med Refill. * Medical History: * Medications: T aking Namenda 10 MG Tablet 1 tablet Orally Once a day , Taking Meloxicam 15 MG Tablet 1 tablet Orally Once a day , Taking Gabapentin 600 MG Tablet 1 tablet Orally three times a day , Taking Desipramine HCl 10 MG Tablet 1 tablet Orally twice a day , Taking PARoxetine HCl 40 MG Tablet 1 tablet in the morning Orally Once a day , Taking traZODone HCl 100 MG Tablet 1 tablet at bedtime Orally Once a day , Taking hydrOXYzine Pamoate 25 MG Capsule 1 capsule three times a day prn anxiety Orally Once a day , Not-Taking Abilify 2 MG Tablet 1 tablet Orally Once a day Objective: * Vitals: Assessment: Plan: * Treatment: * * Electronic signature of Charmaine Stanford , [id number] on 04/21/2024 at 03:38 PM JOB FOREMAN Sign off status: Pending * Provider: Bryant Stanford, MSN, AUTOMATION TECHNOLOGIST-BC, PMHNP-BC Date: 05/13/2023 Generated for Liz correa/Karen/Marissa on: 04/21/2024 03:38 PM JOB FOREMAN
--- OUTSIDE RECORDS SUMMARY | 2024-04-21 15:38 | XMS_ITS | Clinical Summary ---
Author Organization [facility] Address [facility] [place] [address] Care Team Providers Care Process Coordinator Name Role Phone None, Provider MD Primary [...] this topic Insurance [facility] Care Teams Process Coordinator Relationship Specialty Start Date End Date None, Provider, MD PCP - General UNKNOWN PHYSICIAN SPECIALTY 08/23/23
--- OUTSIDE RECORDS SUMMARY | 2024-04-21 15:39 | XMS_ITS | Clinical Summary ---
Author Organization [facility] Address [address] [place] [address] Phone Care Team Providers Care Java Developer Name Role Phone Provider, Unknown Primary Care [...] Treatment Not on file Insurance MEDICARE C [facility] Care Teams Java Developer Relationship Specialty Start Date End Date Provider, Unknown UNKNOWN PCP - General 11/02/22
--- OUTSIDE RECORDS SUMMARY | 2024-04-21 15:39 | XMS_ITS | Referral Summary ---
[facility] Address [address] [place] [address] Care Team Providers Care Co Founder And President Name Role Phone Jose Murillo NP Primary Care Provider Encounters Date Type Department Care Team Description 01/20/2024 [facility] [address] [facility] [address] [place] [address] Michelle Mathis MA from Last [...] strip TEST ONCE DAILY DIRECTED 06/19/2020 Active besqzqok-kni-dp ondroit-vit D3 750 mg-125 mg -600 mg [...] on file Legal Sex Male 3:37 AM PICK UP OPERATOR Gender Identity Not on file Sexual Orientation Not on file Last Filed Vital Signs Vital Sign Reading Time Taken Comments Blood Pressure 115/76 01/01/2024 9:59 AM PICK UP OPERATOR Pulse 71 01/01/2024 9:59 AM PICK UP OPERATOR Temperature - - Respiratory Rate 16 01/01/2024 9:59 AM PICK UP OPERATOR Oxygen Saturation 98% 01/01/2024 9:59 AM PICK UP OPERATOR Inhaled Oxygen Concentration - - Weight 83 kg (183 lb) 01/01/2024 9:59 AM PICK UP OPERATOR Height 180.4 cm (5' 11.02 ) 01/01/2024 9:59 AM C Body Mass Index 25.51 01/01/2024 9:59 AM PICK UP OPERATOR Plan of Treatment Not on file Insurance MEDICARE SOLUTIONS MEDICARE SOLUT[place] [address] Care Teams Co Founder And President Relationship Specialty Start Date End Date Jose Murillo NP [address] [place] [address] PCP - General Nurse Practitioner 08/15/22
--- OUTSIDE RECORDS SUMMARY | 2024-04-21 15:39 | XMS_ITS | CONTINUITY OF CARE DOCUMENT ---
Author Name sary nashmichael Address Unknown Organization [facility] Address [address] [place] [address] Phone [phone] Care Team Providers Care Shoe Repairer Helper Name Role Phone Portillo WALKER, Chan Unavailable [phone] MINDI WALKER, RAIZA Unavailable [phone] MINDI WALKER, RAIZA Unavailable PROBLEMS Condition Status Date Provider Notes PALPITATIONS active ? Chan Nath MD ORTHOSTATIC DIZZINESS active Chan Tarango CHEST PAIN-214 NUC NL active ? Woodrow Pena RN SOB- 214 ECHO EF 60 active ? Woodrow Pena RN DEMENTIA active ? Chan Nath MD SEIZURE DISORDER active ? Chan Nath MD DVT- RIGHT LEG active ? Chan Nath MD TIA-2006 active ? Chan Nath MD CHF active ? Chan Nath MD ENCOUNTERS Date Type Provider Location Encounter Diag nosis - In-person encounter Office Visit Chan Nath MD [place] [facility] - In-person encounter Office Visit Chan Nath MD [place] [facility] ORTHOSTATIC DIZZINESS - In-person encounter Office Visit Chan Nath MD [place] [facility] [id number] RIGHT LEGSEIZURE DISORDERDEMENTIASOB- 214 ECHO EF 60PALPITATIONSCHEST PAIN-2/14 NUC NL VITAL SIGNS Date Observation Value Provider Body Mass Index (Ratio) 33.26 kg/m2 Madyson ssa blood pressure, diastolic 68 mm[Hg] Me camilo blood pressure, systolic 119 mm[Hg] Claudia tamayo Mccauley pulse rate 73 /min Megan Mccauley oxygen saturation, oximetry 97 % Megan Mccauley respiratory rate E&M 17 /min Megan Mccauley weight E&M 237.6 [lb_av] Megan Medina pulse rate, standing 118 /min [facility] blood pressure, diastolic, standing 72 mm [Hg] [facility] blood pressure, systolic, standing 100 mm [Hg] [facility] pulse rate, sitting 103 /min [facility] blood pressure, diastolic, sitting 74 mm[ Hg] [facility] [place] blood pressure, systolic, sitting 110 mm[ Hg] [place] pulse rate, supine, right 88 /min [facility] blood pressure, diastolic, supine, right arm 84 [place] [facility] blood pressure, systolic, supine, r arm 1 28 [facility] Body Mass Index (Ratio) 34.21 kg/m2 Leeanna a blood pressure, diastolic 84 mm[Hg] Niranjan jaramillo [place] blood pressure, systolic 128 mm[Hg] [facility] pulse rate 106 /min [place] oxygen saturation, oximetry 98 % [facility] [place] respiratory rate E&M 16 /min [facility] weight E&M 244.4 [lb_av] [place] blood pressure, diastolic 74 mm[Hg] Jones Pena RN blood pressure, systolic 117 mm[Hg] Woodrow Pena RN pulse rate 77 /min Woodrow Pena RN oxygen saturation, oximetry 98 % Woodrow Pena RN respiratory rate E&M 16 /min Woodrow champagne RN Body Mass Index (Ratio) 34.99 kg/m2 Woodrow Pena RN weight E&M 250 [lb_av] Woodrow Pena RN height E&M 71 [in_i] Woodrow Pena RN ALLERGIES No Known Drug Allergies HISTORY OF MEDICATION USE Medication Status Instructions Dates Provider Indications Com ments NAMENDA 10 MG ORAL TABLET active once daily Megan Garrick XARELTO 20 MG ORAL TABLET active One tab. daily with evening meal Megan Mccauley DONEPEZIL HCL 10 MG ORAL TABLET active daily Woodrow Pena RN LYRICA 150 MG ORAL CAPSULE active 1/2 tab twice daily [place] PRAVACHOL 80 MG ORAL TABLET active daily Woodrow Pena RN WARFARIN SODIUM 5 MG ORAL TABLET completed daily managed kaylene Alvares - Megan Garrick BYSTOLIC 5 MG ORAL TABLET active ONE TAB. DAILY Chan Nath MD SOCIAL HISTORY Date Observation Value Provider social history E&M Marital Status: Sonam Nath MD social history reviewed E&M reviewed Chan Nath MD social history reviewed E&M reviewed Chan Nath MD quit smoking, stage relapse Woodrow grover RN drug use no Woodrow Pena RN passive cigarette smoke exposure no Woodrow Pena RN smoking, year quit 2010 Woodrow snyder RN caffeine use, averag e drinks per day yes Woodrow Pena RN smoking status former smoker Woodrow Castellano social history reviewed E&M reviewed Woodrow Pena RN MENTAL STATUS Date Observation Value Provider assessment of judgme nt and insight E&M Alert and oriented to time, place and person. Mood and affect are normal. Chan Nath MD assessment of judgme nt and insight E&M Alert and oriented to time, place and person. Mood and affect are normal. Chan Nath MD assessment of judgme nt and insight E&M Alert and oriented to time, place and person. Mood and affect are normal. Woodrow Pena RN INSURANCE PROVIDERS Payer name Policy type / Coverage type [employer] party ID [facility] [employer] [id number] TREATMENT PLAN Date Name Performer Follow Up: T he following medications were removed from the medication list: Warfarin Sodium 5 Mg Tabs (Warfarin sodium) ..... Daily managed kaylene alvares His updated medication list for this problem includes: Bystolic 5 Mg Tabs (Nebivolol hcl) ..... One tab. daily Chan Nath MD Follow Up Chan Nath MD Follow Up: H is updated medication list for this problem includes: Bystolic 5 Mg Tabs (Nebivolol hcl) ..... One tab. daily Chan Nath MD Follow Up: T he following medications were removed from the medication list: Warfarin Sodium 5 Mg Tabs (Warfarin sodium) ..... Daily managed kaylene alvares His updated medication list for this problem includes: Bystolic 5 Mg Tabs (Nebivolol hcl) ..... One tab. daily Chan Nath MD Follow Up: H is updated medication list for this problem includes: Bystolic 5 Mg Tabs (Nebivolol hcl) ..... One tab. daily Warfarin Sodium 5 Mg Tabs (Warfarin sodium) ..... Daily managed kaylene Nath MD Follow Up: H is updated medication list for this problem includes: Quinapril Hcl 20 Mg Tabs (Quinapril hcl) ..... One tab. daily Warfarin Sodium 5 Mg Tabs (Warfarin sodium) ..... Daily managed kaylene Nath MD Follow Up Chan Nath MD Follow Up: H is updated medication list for this problem includes: Quinapril Hcl 20 Mg Tabs (Quinapril hcl) ..... One tab. daily Warfarin Sodium 5 Mg Tabs (Warfarin sodium) ..... Daily managed kaylene Nath MD Follow Up: H is updated medication list for this problem includes: Quinapril Hcl 20 Mg Tabs (Quinapril hcl) ..... One tab. daily Chan Nath MD : H is updated medication list for this problem includes: Warfarin Sodium 5 Mg Tabs (Warfarin sodium) ..... Daily managed kaylene Nath MD : H is updated medication list for this problem includes: Quinapril Hcl 40 Mg Tabs (Quinapril hcl) ..... One tab. daily Warfarin Sodium 5 Mg Tabs (Warfarin sodium) ..... Daily managed kaylene alvares BP today: 117/74 Prior BP: / () Chan Nath MD Date Name Full PFT Complete Echo STR - Adenosine HISTORY OF PROCEDURES Procedure Date Procedure Name Provider Procedure Notes S tatus EKG Chan Nath MD completed DLCO - 75990 Chan Nath MD complet ed FRC - 56228 Chan Nath MD complete d FVC - 35047 Chan Nath MD complete d
--- OUTSIDE RECORDS SUMMARY | 2024-04-21 15:39 | XMS_ITS ---
Author Organization [facility] Address [address] [place] [address] Care Team Providers Care Peer Support Specialist Name Role Phone Markus Luis Alberto Primary Care Provider Charmaine Stanford Unavailable [phone] Allergies Allergen (clinical drug ingredient) Drug/Non Drug Allergy documented on EMR Reaction Allergy Type Onset Date Status codeine Codeine Sulfate nausea and vomiting Drug Allergy Active Reason For Referral Reason New pt eval. Recent hospitalization after separation from of 30 years. No current SI Diagnosis 1 Mood disorder (F39) Diagnosis 2 MDD (major depressiv e disorder), recurrent episode, mild (F33.0) Diagnosis 3 Anxiety (F41.9) Referral Organization [facility] Referring Provider First Name Charmaine Referring Provider Last Name Hien Referring Provider Speciality Psychiatry Referred Provider Specialty Behavioral H [facility] Clinical Notes Ashley Gifford 03/18 02:05:48 PM >Staff WELLER obtains referral and reviews. Staff WELLER attempts to contact Consumer. Consumer does not answer, message left.Balta Kelsee M 03/25/2023 10:59:26 AM >Attempt to contact Consumer, Consumer does not respond at this time. Voice mail left.Balta Kelsee M 03/28/2023 12:59:12 PM >Staff WELLER talks to Consumer. Consumer is in agreement with referral. Staff WELLER provides Consumer with a few resources for therapy options. Information given, closing referral. Referral Priority Routine REASON FOR VISIT new Eval/ Zoom Medications Medication SIG (Take, Route, Frequency, Duration) Notes Start Date End Date Status PARoxetine HCl 40 MG 1 tablet in the mor renetta Orally Once a day for 30 days Active traZODone HCl 100 MG 1 tablet at bedtime Orally Once a day for 30 days Active Gabapentin 600 MG 1 tablet Orally thre e times a day Active Namenda 10 MG 1 tablet Orally Once a day Active Meloxicam 15 MG 1 tablet Orally Once a day Active hydrOXYzine Pamoate 25 MG 1 capsule thre e times a day prn anxiety Orally Once a day for 30 days 03/18/2023 Active Desipramine HCl 10 MG 1 tablet Orally tw ice a day Active Abilify 2 MG 1 tablet Orally Once a day for 30 days 03/18/2023 Active Social History Tobacco Use: Social History Observation Description Date Details (start date - stop date) Never Smoker NA - NA Tobacco Control (Standard) Question Answer Notes Tobacco use: Nonsmoker Section Notes: PRESCRIPTION #FILLEDWRITTEND RUG LABELQTYDAYSSTRENGTHMMEPRESCRIBERPHARMACYREFILL NO.REFILLSSTATEPATIENT [id number]//[id number] Milton Batista C, Md - [id number] Hospital, [id number]//[id number] [facility] WESLEYEmma Glass Md [id number]-Farber Cancer [id number]//[id number] MGEmma Glass Md [id number] [id number]//[id number] MGEmma Pina Md [id number] Problems Problem Type SNOMED Code ICD Code Onset Dates Problem Status W/U Status Risk Notes Problem Mood disorder (47384643) Mood disorder (F39) 03/18/2023 Active confirmed Problem Mild recurrent major depression (29588912) MDD (major depressive disorder), recurrent episode, mild (F33.0) 03/18/2023 Active confirmed Problem Anxiety (20383443) Anxiety (F41.9) 03/18/2023 Active confirmed Encounters Encounter Location Date Provider Diagnosis [address] [address] 03/18/2023 Charmaine Stanford Mood disorder F39 ; MDD (major depressive disorder), recurrent episode, mild F33.0 and Anxiety F41.9 Assessments Encounter Date Diagnosis (ICD Code) Assessment Notes Treatment Notes Treatment Clinical Notes Section Notes 03/18/2023 Mood disorder (ICD-10 - F39) 03/18/2023 MDD (major depressive disorder), recurrent episode, mild (ICD-10 - F33.0) Referred to counseling Will have disclosures signed for recent labs. Will add Abilify 2mg at HS Continue Trazodone and Paxil Follow up in 4 weeks or earlier if needed. 03/18/2023 Anxiety (ICD-10 - F41.9) 03/18/2023 Other Patient was educated on diagnosis and symptoms. Discussed the treatment plan, patient is agreeable and accepting of treatment plan. Patient denies further questions or concerns currently. Discussed sleep hygiene and caffeine intake. Encouraged to improve diet, get regular exercise, daily relaxation, and work on managing stress levels. Return to clinic 4 weeks. Have disclosure signed for recent hospitalization. Referred to counseling. The Patient/Guardian is aware of the need to contact the office or return for an earlier appointment if any problems or concerns arise. May also contact the 24-hour crisis hotline ([facility]), refer to the closest emergency room or call 911 if new symptoms arise of existing symptoms worsen; the Patient/Guardian is aware that this would apply to symptoms such as: suicidal ideation, homicidal ideation, high risk behaviors, manic symptoms, psychotic symptoms, physical symptoms, or any other symptoms that may be dangerous to self or others. Greater than 50% of time spent on coordination and counseling where psychopharmacology as well as psychotherapeutic interventions were discussed along with review of treatments in the past. Patient/Guardian was educated about treatments including benefits and risks, alternatives, potential medication side effects, black box warning, and risks of failure if not treated. The Patient/Guardian asked appropriate questions, appeared to understand the answers, and decided to accept the treatment and continue being followed. Discussed the importance of compliance with medications due to the risk of relapse of symptoms. Discussed the risks of taking psychotropic medication when [...] in a negative outcome. Plan Of Treatment Medication Medication Name Sig Start Date Stop Date Notes PARoxetine HCl 40 MG 1 tablet in the mor renetta Orally Once a day for 30 days traZODone HCl 100 MG 1 tablet at bedtime Orally Once a day for 30 days hydrOXYzine Pamoate 25 MG 1 capsule thre e times a day prn anxiety Orally Once a day for 30 days 03/18/2023 Abilify 2 MG 1 tablet Orally Once a day for 30 days 03/18/2023 Treatment Notes Assessment Notes MDD (major depressive disord er), recurrent episode, mild Referred to counseling Will have disclosures signed for recent labs. Will add Abilify 2mg at HS Continue Trazodone and Paxil Follow up in 4 weeks or earlier if needed. Other Patient was educated on diagnosis and symptoms. Discussed the treatment plan, patient is agreeable and accepting of treatment plan. Patient denies further questions or concerns currently. Discussed sleep hygiene and caffeine intake. Encouraged to improve diet, get regular exercise, daily relaxation, and work on managing stress levels. Return to clinic 4 weeks. Have disclosure signed for recent hospitalization. Referred to counseling. The Patient/Guardian is aware of the need to contact the office or return for an earlier appointment if any problems or concerns arise. May also contact the 24-hour crisis hotline ([facility]), refer to the closest emergency room or call 911 if new symptoms arise of existing symptoms worsen; the Patient/Guardian is aware that this would apply to symptoms such as: suicidal ideation, homicidal ideation, high risk behaviors, manic symptoms, psychotic symptoms, physical symptoms, or any other symptoms that may be dangerous to self or others. Greater than 50% of time spent on coordination and counseling where psychopharmacology as well as psychotherapeutic interventions were discussed along with review of treatments in the past. Patient/Guardian was educated about treatments including benefits and risks, alternatives, potential medication side effects, black box warning, and risks of failure if not treated. The Patient/Guardian asked appropriate questions, appeared to understand the answers, and decided to accept the treatment and continue being followed. Discussed the importance of compliance with medications due to the risk of relapse of symptoms. Discussed the risks of taking psychotropic medication when [...] will not result in a negative outcome. Referrals Referral Date Details 03/18/2023 03/18/2023, New pt e sameer. Recent hospitalization after separation from of 30 years. No current SI Next Appt Details Follow Up: 4 Weeks, Reason: in person follow up from new evaluation Progress Notes * Pavel IRVINDOB:1960 (62 yo M)Acc No.[id number]:03/18/2023 Patient: Geovanna Pavel GOMEZ Provider: ANAT Gurrola :1960 A ge:62 Y S ex:Male Date:03/18/2023 Address:[address] [place] [address], [facility] Subjective: * Chief Complaints: * n ew Eval/ Zoom * HPI: D epression Screening: PHQ-9 L ittle interest or pleasure in doing things S everal days, F eeling down, depressed, or hopeless N ot at all, T rouble falling or staying asleep, or sleeping too much N ot at all, F eeling tired or having little energy N ot at all, P oor appetite or overeating N ot at all, F eeling bad about yourself or that you are a failure, or have let yourself or your family down N ot at all, T rouble concentrating on things, such as reading the newspaper or watching television S everal , M oving or speaking so slowly that other people could have noticed; or the opposite, being so fidgety or restless that you have been moving around a lot more than usual N ot at all, T houghts that you would be better off or of hurting yourself in some way N ot at all, T otal Score 2 , Interpretation M inimal Depression. I ntervention D epression Screening Findings?Positive, F ollow-Up for Depression N o Referral necessary, patient involved in behavioral health treatment .. This session was completed by jhon HOUSE-19 emergency, with client/parental/guardian consent. S creening: [place] Suicide Severity Rating Scale (LF) D o you want to initiate with S creener form, 1 . Wish to be : Have you wished you were or wished you could go to sleep and not wake up? N o, 2 . Suicidal Thoughts: Have you actually had any thoughts of killing yourself? N o, 6 . Suicide Behaviour: Have you ever done anything,started to do anything, or prepared to end your life? N o. C SSRS Interpretation and Follow Up Plan: CSSRS Interpretation and Follow Up Plan. CSSRS Interpretation and Follow Up Plan M oderate or High risk requires selection of a follow up plan C SSRS No/Low: intervention not needed at this time.? G AD-7 Screenin. Feeling nervous, anxious, or on edge : , Nearly every day-3. 2 . Not being able to stop or control worrying : , Nearly every day-3. 3 . Worrying too much about different things : , More than half the days-2. 4 . Trouble sleeping/relaxing : , Not at all-0. 5 . Being so restless that it is hard to sit still M ore than half the days-2. 6 . Becoming easily annoyed or irritable : , Nearly every day-3. 7 . Feeling afraid, as if something awful might happen : , Not at all-0. G AD-7 Score T otal score?13 :. M ood Disorder Questionnaire 08-16-21: Please answer each question to the best of your ability. Questions P lease answer each question to the best of your ability. H as there ever been a time period when you were not your usual self and..., Y ou felt so good or hyper that other people thought you were not your normal self or you were so hyper that you got into trouble? Y es ., Y ou were so irritable that you shouted at people or started fights or arguments? Y es ., Y ou got much less sleep than usual and found that you didn't really miss it? N o ., Y ou felt much more self-confident than usual? N o ., Y ou were more talkative or spoke much faster than usual? N o ., T houghts raced through your head or you couldn't slow your mind down? Y es ., Y ou were so easily distracted by things around you that you had trouble concentrating or staying on track? Y es ., Y ou had more energy than usual? Y es ., Y ou were more active or did many more things than usual? N o ., Y ou were more social or outgoing than usual, for example, you telephoned friends in the middle of the night? N o ., Y ou were more interested in sex than usual? N o ., Y ou did things that were usual for you or that other people might have thought were excessive, foolish, or risky??Yes ., S pending money got you or your family in trouble? N o ., I f you checked YES to more than one of the above, have several of these ever happened during the same period of time??Yes ., H ow much of a problem did any of these cause you - like being unable to work; having family, money or legal troubles; getting into arguments or fights? M oderate problem .. P reventative Health and Wellness follow-up: Action Plans for Clinical Quality Measures: C olorectal Cancer Screening: N ot addressed during this visit. See notes for details. patient states he has the fecal occult test ordered through his primary- Ryan Murillo in [place], [place]- agreed to electronically sign ILA for results, H IV Screening: D iscussed need for HIV screening. Patient declined.. . C onstitutional: Expectations of this visit- Why present now? Symptoms Present- A couple of weeks ago, my told me some news I didn't like and I went off the deep end. I ended up in [facility] because I couldn't calm down. I ended up having COVID-19. She told me she didn't want to touch me anymore and sex is off the table. They have been for over 30 years. They are . She says she doesn't want me back unless the doctor puts me on medication. He is staying with his daughter and her son. I am having a good time here and I feel okay. INITIAL MHA: Pavel is a 62 y/o male that presents by Jhon for an initial psychiatric evaluation. Pavel was hospitalized on 03/01/2023 for MH at [facility]. He reports he couldn't calm himself down after what his expressed, as stated above. He had SI with no plan. He was also found to have COVID-19. He was kept for a couple days and discharged. He and his are now , and he is staying with his daughter and grandson. He reports that this is good for him. She needed my help anyway. His daughter is a and needed repairs around the house. He denies any mental health diagnosis. He reports a hx of dementia. He sees a neurologist. He is on Namenda, and she also prescribes Desipramine for enuresis. My mind is like macedonian cheese. He has been taking Paxil for my racing thoughts for the last 4-5 years prescribed by his PCP. He also takes Trazodone to sleep. His PCP prescribes Gabapentin for neuropathy. His complaints today is anger, irritability, and racing thoughts. I have a hair trigger on my temper. He denies any howie or SIB/SI/HI/AVH. No impulsivity or paranoia. No previous hospitalizations for MH. No family hx of MH or completed suicides. Today's PHQ-9 is 2. Information provided by?- Pavel Triggers- I don't know of any specific triggers. I am sure my could tell you some. What helps/Coping mechanisms? Marijuana because it calms me down. Walking. 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 Decide whether or not to move out of the state. To stay afloat. Sleep- With the trazodone it is very good. Appetite- It's good. Depression-- 4-5 Hopeless/helpless- Denies. Guilty/Worthless Endorses. Interest level- Some anhedonia. Concentration- Fair concentration. Crying spells Denies. Energy Level- Fair energy. If I have a bad day my energy level is down. Weight loss/Weight gain He has recently lost 20 lbs, I was trying to lose 20lbs. Anxiety- 4/10 Panic Attacks Denies. Social Phobias Denies. Nightmares/Flashbacks I do have flashbacks of me falling off the roof. Anger/irritability- Endorses anger and irritability. Denies mood swings. Racing thoughts- I have thoughts racing in my head and I can't get them to stop. Distractible- Easily distracted. Indiscretion/Inhibition- (good judgement versus poor judgement) Endorses poor judgement. Risk taking- Denies. Grandiosity- Denies. Increased activity- Denies. Missed sleep and still felt good- Denies. I need my sleep. Talkativeness- Only when I am angry. Impulsivity- There is some impulse shopping now and then. Suicidal Ideation- Denies. Suicidal attempts- Denies. Self-Harm-- Denies. Homicidal Ideation- Denies. Hallucinations- Denies. Paranoia- Denies. Delusions- Denies. OCD-- Denies. Animal cruelty or fire setting Denies.PAST PSYCHIATRIC HISTORY-- P ast Diagnosis---Denies any diagnosis except for dementia. He has been on paroxetine 4-5 years to calm his thoughts down. ADHD/learning disabilities as child: Denies Psychiatric Medications- Current substance use - Current medications: Trazodone, Paroxetine, Desipramine (prescribed by neurology for enuresis) Medication Adherence- Yes, he has a HERO pill dispenser Medication efficacy- Yes except for the ones that are supposed to be keeping me calm. Side effects- Denies. Past Psychiatric Hospitalizations/Counseling He has never been in counseling. He was hospitalized for 03/01/2023 at [facility] for .MEDICAL HISTORY-- Allergies-Codeine (N/A) Other Medications- Gabapentin, Meloxicam, Namenda Medical Concerns- No hx of seizures. Dementia, Borderline Diabetes. Hx of concussions. Has chronic left arm pain and weakness from fracture (had a fall from a roof in 2019) LMP-- N/A Therapist- He is not in therapy. Primary Care Physician- Ryan Murillo APN is his PCP in [place] Emma Glass is his Neurologist through [facility] Recent Labs- Recent labs when hospitalized, will have him sign a disclosure.FAMILY HEALTH HISTORY- - Mother-Cardiac Disease, CAD, 5 vessel CABG, she is mentally out there. Father-, CVA's MGM-Unknown MGF-Unknown PGM-Unknown PGF-Unknown Older Sister-Healthy Younger Brother-Healthy Younger Sister-Healthy Twin daughters (age 42)-Healthy Son (age 38)-Healthy No family hx of completed suicide.SOCIAL HISTORY- S moking history---Vapes Drug/alcohol useSubstance A lcohol I really don't drink, maybe one in a social setting which is like 3-4 times per year. MarijuanaDaily use. I do that for pain. C ocaineDenies use. HeroinDenies use. MethDenies use. LSD/PCPDenies use. IV drugsDenies use. OTC/Rx drugsDenies use. location- Born in [place], [place] (Lived there until age 18) Current home location- Lives in [place], [place] Who lives at home? Living with his daughter and his grandson Prior to hospitalization on 03/01/23 he was living with his in . Siblings? Children? 3 siblings, 3 biological children and 2 stepchildren. Relationships? He has recently from his . They have been for 30 years. (2-3 words) Describe childhood- I had a good childhood. I [place] sail[place]. 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 He has been retired for 8 years now. Hobbies/Interests- Being outdoors, camping, hiking, researching Social Activities-- I like movies. Shopping, going outside. Spiritual Affiliation- I am Adventism. Probation/Legal trouble/?- Denies. * ROS: P sych ROS: Constitutional D enies. R espiratory D enies. C ardiovascular D enies. G I D enies. M usculoskeletal R eports, C hronic pain LUE from fall injury in 2019. N eurological R eports, H x of Dementia, Denies history of seizures.. E ndocrine R eports, B orderline diabetes.. * PSYCH ROS2: Elevated mood symptoms D enies. m ood swings Denies. T houghts of self harm D enies. D enies H omicidal thoughts. H yperactivity? Denies. I nattention A dmits. O bsessive behavior D enies. C ompulsive behavior Denies. P aranoia D enies. D ifficulty concentrating A dmits. A dmits A nxiety. D enies A uditory/visual hallucinations. D enies D elusions. A dmits D epressed mood. D enies D ifficulty sleeping. D enies L oss of appetite. Admits S tressors. A dmits S ubstance abuse, D aily marijuana use. D enies?Suicidal thoughts. * Medical History: * Surgical History: a ppendectomy hemorrhoidectomy cyst removal from right ankle right shoulder- torn bicep repair left elbow repair * Hospitalization/Major Diagno stic Procedure: D enies Past Hospitalization * Family History: N o Family History documented.. * Social History: P rimary Social History: L iving Arrangement L iving Arrangement: D ependent Living, L iving with: Bryant young, I s this a supportive environment? Y es. A lcohol Use A lcohol Use Frequency: Never. I llicit Substance Usage I llicit Substance Usage: Y es, S ubstance Used:?Cannabis, F requency Cannabis is used: daily for pain, I nterested in quitting:?No. E mployment Status E mployment Status: O n Disability. T obacco Use: T obacco Control (Standard) T obacco use: N onsmoker. P RESCRIPTION #FILLEDWRITTENDRUG LABELQTYDAYSSTRENGTHMMEPRESCRIBERPHARMACYREFILL NO.REFILLSSTATEPATIENT [id number] Milton Batista C, Md - [id number] Hospital, [id number]//[id number] MGEmma Pina Md - [id number] Hospital, [id number]//[id number] Emma Chavez Md [id number] Hospital, [id number]. Emma Chavez Md [id number]. * Medications: T akingNamenda 10 MG Tablet 1 tablet Orally Once a day traZODone HCl 100 MG Tablet 1 tablet at bedtime Orally Once a day PARoxetine HCl 40 MG Tablet 1 tablet in the morning Orally Once a day Meloxicam 15 MG Tablet 1 tablet Orally Once a day Gabapentin 600 MG Tablet 1 tablet Orally three times a day Desipramine HCl 10 MG Tablet 1 tablet Orally twice a day Medication List reviewed and reconciled with the patientTaking Namenda 10 MG Tablet 1 tablet Orally Once a day Taking traZODone HCl 100 MG Tablet 1 tablet at bedtime Orally Once a day Taking PARoxetine HCl 40 MG Tablet 1 tablet in the morning Orally Once a day Taking Meloxicam 15 MG Tablet 1 tablet Orally Once a day Taking Gabapentin 600 MG Tablet 1 tablet Orally three times a day Taking Desipramine HCl 10 MG Tablet 1 tablet Orally twice a day Medication List reviewed and reconciled with the patient * Allergies: C odeine Sulfate: nausea and vomitingno[Allergies Verified] Objective: * Vitals: I nitials: kb, Pain scale:5.patient self reports weight to be 200 lbs and height of 71 in. Denies any physical symptoms; unableto obtain vital signs due to telephone encounter. * Examination: G eneral Examination: PSYCH: f ull range of affect/positive mood, good eye contact, speech clear, no auditory or visual hallucinations, thought content without suicidal ideation or delusions, alert, oriented x4, cooperative with exam, judgement and insight good, thought process logical, goal directed, neatly groomed and dressed, appears stated age, thought processes worthlessness, thought content without delusions, denies any current thoughts/plans of suidicial/homicidal ideation, No evidence of EPS or tardive dyskinesia. Mental Status Exam P rotective Factors M arried, Children, Coping Skills, Cultural/Worship Ideology, Denies Intent/Desire/Means. Assessment: * Assessment: 1. M ood disorder - F39 (Primary) 2 . M DD (major depressive disorder), recurrent episode, mild - F33.0 3 . A nxiety - F41.9 Plan: * Treatment: 2. M DD (major depressive disorder), recurrent episode, mild Refill PARoxetine HCl Tablet, 40 MG, 1 tablet in the morning, Orally, Once a day, 30 days, 30, Refills 1; R efill traZODone HCl Tablet, 100 MG, 1 tablet at bedtime, Orally, Once a day, 30 days, 30, Refills 1; S tart Abilify Tablet, 2 MG, 1 tablet, Orally, Once a day, 30 days, 30, Refills 1.? Notes: Referred to counseling Will have disclosures signed for recent labs. Will add Abilify 2mg at HS Continue Trazodone and Paxil Follow up in 4 weeks or earlier if needed. ? Referral To:Behavioral Health Reason:New pt eval. Recent hospitalization after separation from of 30 years. No current SI 3. A nxiety Start hydrOXYzine Pamoate Capsule, 25 MG, 1 capsule three times a day prn anxiety, Orally, Once a day, 30 days, 90 Capsule, Refills 0. Referral To:Behavioral Health Reason:New pt eval. Recent hospitalization after separation from of 30 years. No current SI 4. O thers Notes:Patient waseducated on diagnosis and symptoms.Discussed the treatment plan, patient is agreeable and accepting oftreatment plan. Patient denies further questions or concerns currently. Discussedsleep hygiene and caffeine intake. Encouraged to improve diet, get regularexercise, daily relaxation, and work on managing stress levels. Return toclinic 4 weeks. Have disclosure signed for recent hospitalization. Referred to counseling. The Patient/Guardian is aware of theneed to contact the office or return for an earlier appointment if any problemsor concerns arise. May also contact the 24-hour crisis hotline (R), refer tothe closest emergency room or call 911 if new symptoms arise of existingsymptoms worsen; the Patient/Guardian is aware that this would apply tosymptoms such as: suicidal ideation, homicidal ideation, high risk behaviors,manic symptoms, psychotic symptoms, physical symptoms, or any other symptomsthat may be dangerous to self or others. Greater than 50% of time spent oncoordination and counseling where psychopharmacology as well aspsychotherapeutic interventions were discussed along with review of treatmentsin the past. Patient/Guardian was educated abouttreatments including benefits and risks, alternatives, potential medicationside effects, black box warning, and risks of failure if not treated.The Patient/Guardian askedappropriate questions, appeared to understand the answers, and decided toaccept the treatment and continue being followed. Discussed the importance ofcompliance with medications due to the risk of relapse of symptoms. Discussed the risks of takingpsychotropic medication when combined with substance use/abuse and/or drinkingalcohol. Client was educated about risksand benefits of medication, alternative to medication, alternative to nomedications, suicidal ideation with SSRI, education related to psychiatricillness, self-administration, compliance with medication, storage and safeguardingof medication. Will assess appropriateness of medication reduction after clientshows stability in current clinical s/s. Reduction will not result in anegative outcome. * Recommended Wellness and Pre vention Guidelines: * S tatus A lert L ast Done N ext Due A ction Taken N ONCOMPLIANT A llergy List Verification - 0 03/18/2023 - N ONCOMPLIANT B will Mass Index - 0 03/18/2023 - N ONCOMPLIANT C holesterol screen (genl pop) - 0 03/18/2023 - N ONCOMPLIANT C olorectal cancer screening - 0 03/18/2023 - N ONCOMPLIANT D epression screening - 0 03/18/2023 - N ONCOMPLIANT H IV screening - 0 03/18/2023 - N ONCOMPLIANT I nfluenza vaccine (over 50) - 0 03/18/2023 - N ONCOMPLIANT S moking status - 0 03/18/2023 - * Procedure Codes: * Follow Up: 4 Weeks (Reason: in person follow up from new evaluation) * * INFORMATION OFFICER Sign off status: Completed true * Provider: ANAT Gurrola Date: 0 03/18/2023 Generated for Liz correa/Karen/Marissa on: 0 04/21/2024 03:38 PM FIRE INFORMATION OFFICER History and Physical Notes * HPI (History of Present Illness) Category Sub-Category Detail Notes Category Not es Depression Screening PHQ-9 Little inte rest or pleasure in doing things: Several days This session was completed by jhon haq COVID-19 emergency, with client/parental/myla n consent. Feeling down, depressed, or hopeless: No t at all Trouble falling or staying asleep, or sl eeping too much: Not at all Feeling tired or having little energy: N ot at all Poor appetite or overeating: Not at all Feeling bad about yourself o r that you are a failure, or have let yourself or your family down: Not at all Trouble concentrating on thi ngs, such as reading the newspaper or watching television: Several days Moving or speaking so slowly that other people could have noticed; or the opposite, being so fidgety or restless that you have been moving around a lot more than usual: Not at all Thoughts that you would be b luna off or of hurting yourself in some way: Not at all Total Score: 2 Interpretation: Minimal Depression Intervention Depression Screening Findings: P ositive Follow-Up for Depression: No Referral necessary, patient involved in behavioral health treatment . Constitutional Expectations of this visit- Why present now? Symptoms Present- A couple of weeks ago, my told me some news I didn't like and I went off the deep end. I ended up in [facility] because I couldn't calm down. I ended up having COVID-19. She told me she didn't want to touch me anymore and sex is off the table. They have been for over 30 years. They are . She says she doesn't want me back unless the doctor puts me on medication. He is staying with his daughter and her son. I am having a good time here and I feel okay. INITIAL MHA: Pavel is a 62 y/o male that presents by Jhon for an initial psychiatric evaluation. Pavel was hospitalized on 03/01/2023 for MH at [facility]. He reports he couldn't calm himself down after what his expressed, as stated above. He had SI with no plan. He was also found to have COVID-19. He was kept for a couple days and discharged. He and his are now , and he is staying with his daughter and grandson. He reports that this is good for him. She needed my help anyway. His daughter is a and needed repairs around the house. He denies any mental health diagnosis. He reports a hx of dementia. He sees a neurologist. He is on Namenda, and she also prescribes Desipramine for enuresis. My mind is like macedonian cheese. He has been taking Paxil for my racing thoughts for the last 4-5 years prescribed by his PCP. He also takes Trazodone to sleep. His PCP prescribes Gabapentin for neuropathy. His complaints today is anger, irritability, and racing thoughts. I have a hair trigger on my temper. He denies any howie or SIB/SI/HI/AVH. No impulsivity or paranoia. No previous hospitalizations for MH. No family hx of MH or completed suicides. Today's PHQ-9 is 2. Information provided by?- Pavel Triggers- I don't know of any specific triggers. I am sure my could tell you some. What helps/Coping mechanisms? Marijuana because it calms me down. Walking. Goals- Set up a [employer] station. Decide whether or not to move out of the state. To stay afloat. Sleep- With the trazodone it is very good. Appetite- It's good. Depression-- 4-07/04 Hopeless/helpless- Denies. Guilty/Worthless Endorses. Interest level- Some anhedonia. Concentration- Fair concentration. Crying spells Denies. Energy Level- Fair energy. If I have a bad day my energy level is down. Weight loss/Weight gain He has recently lost 20 lbs, I was trying to lose 20lbs. Anxiety- 06/04 Panic Attacks Denies. Social Phobias Denies. Nightmares/Flashbacks I do have flashbacks of me falling off the roof. Anger/irritability- Endorses anger and irritability. Denies mood swings. Racing thoughts- I have thoughts racing in my head and I can't get them to stop. Distractible- Easily distracted. Indiscretion/Inhibition- (good judgement versus poor judgement) Endorses poor judgement. Risk taking- Denies. Grandiosity- Denies. Increased activity- Denies. Missed sleep and still felt good- Denies. I need my sleep. Talkativeness- Only when I am angry. Impulsivity- There is some impulse shopping now and then. Suicidal Ideation- Denies. Suicidal attempts- Denies. Self-Harm-- Denies. Homicidal Ideation- Denies. Hallucinations- Denies. Paranoia- Denies. Delusions- Denies. OCD-- Denies. Animal cruelty or fire setting Denies. PAST PSYCHIATRIC HISTORY-- Past Diagnosis--- Denies any diagnosis except for dementia. He has been on paroxetine 4-5 years to calm his thoughts down. ADHD/learning disabilities as child: Denies Psychiatric Medications- Current substance use - Current medications: Trazodone, Paroxetine, Desipramine (prescribed by neurology for enuresis) Medication Adherence- Yes, he has a [employer]O pill dispenser Medication efficacy- Yes except for the ones that are supposed to be keeping me calm. Side effects- Denies. Past Psychiatric Hospitalizations/Counseling He has never been in counseling. He was hospitalized for MH 03/01/2023 at [facility] for SI. MEDICAL HISTORY-- Allergies- Codeine (N/A) Other Medications- Gabapentin, Meloxicam, Namenda Medical Concerns- No hx of seizures. Dementia, Borderline Diabetes. Hx of concussions. Has chronic left arm pain and weakness from fracture (had a fall from a roof in 2019) LMP-- N/A Therapist- He is not in therapy. Primary Care Physician- Ryan Murillo APN is his PCP in [place] Emma Glass is his Neurologist through [facility] Recent Labs- Recent labs when hospitalized, will have him sign a disclosure. FAMILY HEALTH HISTORY- - Mother-Cardiac Disease, CAD, 5 vessel CABG, she is mentally out there. Father-, CVA's MGM-Unknown MGF-Unknown PGM-Unknown PGF-Unknown Older Sister-Healthy Younger Brother-Healthy Younger Sister-Healthy Twin daughters (age 42)-Healthy Son (age 38)-Healthy No family hx of completed suicide. SOCIAL HISTORY- Smoking history--- Vapes Drug/alcohol use Substance Alcohol I really don't drink, maybe one in a social setting which is like 3-4 times per year. Marijuana Daily use. I do that for pain. Cocaine Denies use. Heroin Denies use. Meth Denies use. LSD/PCP Denies use. IV drugs Denies use. OTC/Rx drugs Denies use. location- Born in [place], [place] (Lived there until age 18) Current home location- Lives in [place], [place] Who lives at home? Living with his daughter and his grandson Prior to hospitalization on 03/01/23 he was living with his in . Siblings? Children? 3 siblings, 3 biological children and 2 stepchildren. Relationships? He has recently from his . They have been for 30 years. (2-3 words) Describe childhood- I had a good childhood. I [place] sail[place]. 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 He has been retired for 8 years now. Hobbies/Interests- Being outdoors, camping, hiking, researching Social Activities-- I like movies. Shopping, going outside. Spiritual Affiliation- I am Adventism. Probation/Legal trouble/?- Denies. SARAH-7 Screening 1. Feeling nervous, anxious, or on edge :, Nearly every day-3 2. Not being able to stop or control wor rying :, Nearly every day-3 3. Worrying too much about different thi ngs :, More than half the days-2 4. Trouble sleeping/relaxing :, Not at a ll-0 5. Being so restless that it is hard to sit still More than half the days-2 6. Becoming easily annoyed or irritable :, Nearly every day-3 7. Feeling afraid, as if something awful might happen :, Not at all-0 SARAH-7 Score Total score: 13 : Screening [place] Suicide Sev erity Rating Scale (LF) Do you want to initiate with: Screener form 1. Wish to be : Have you wished you were or wished you could go to sleep and not wake up?: No 2. Suicidal Thoughts: Have you actually had any thoughts of killing yourself?: No 6. Suicide Behavior Question: Have you ever done anything,started to do anything, or prepared to end your life?: No Mood Disorder Questionnaire 08-16-21 Questions Please answer each question to the best of your ability.: Has there ever been a time period when you were not your usual self and... You felt so good or hyper th at other people thought you were not your normal self or you were so hyper that you got into trouble?: Yes . You were so irritable that y ou shouted at people or started fights or arguments?: Yes . You got much less sleep than usual and found that you didn't really miss it?: No . You felt much more self-confident than u sual?: No . You were more talkative or spoke much fa ster than usual?: No . Thoughts raced through your head or you couldn't slow your mind down?: Yes . You were so easily distracte d by things around you that you had trouble concentrating or staying on track?: Yes . You had more energy than usual?: Yes . You were more active or did many more th ings than usual?: No . You were more social or outg oing than usual, for example, you telephoned friends in the middle of the night?: No . You were more interested in sex than usu al?: No . You did things that were usu al for you or that other people might have thought were excessive, foolish, or risky?: Yes . Spending money got you or your family in trouble?: No . If you checked YES to more t real one of the above, have several of these ever happened during the same period of time?: Yes . How much of a problem did an y of these cause you - like being unable to work; having family, money or legal troubles; getting into arguments or fights?: Moderate problem . Do Not Use CSSRS Interpretation and Follow Up Plan CSSRS Interpretation and Follow Up Plan Moderate or High risk requires selection of a follow up plan: CSSRS No/Low: intervention not needed at this time Preventative Health and Wellness follow-up Action Plans for Clinical Quality Measures: Colorectal Cancer Screening:: Not addressed during this visit. See notes for details. patient states he has the fecal occult test ordered through his primary- Ryan Murillo in [place], [place]- agreed to electronically sign ILA for results . HIV Screening:: Discussed need for HIV s creening. Patient declined. Examination Category Sub-Category Detail Notes Category Not es General Examination PSYCH: full range o f affect/positive mood, good eye contact, speech clear, no auditory or visual hallucinations, thought content without suicidal ideation or delusions, alert, oriented x4, cooperative with exam, judgement and insight good, thought process logical, goal directed, neatly groomed and dressed, appears stated age, thought processes worthlessness, thought content without delusions, denies any current thoughts/plans of suidicial/homicidal ideation, No evidence of EPS or tardive dyskinesia Mental Status Exam Protective Factors: , Children, Coping Skills, Cultural/Worship Ideology, Denies Intent/Desire/Means Consultation Request Notes Referral Date Referring Provider Referred Provider Not es 03/18/2023 Charmaine Stanford , New pt eval. R ecent hospitalization after separation from of 30 years. No current SI
--- OUTSIDE RECORDS SUMMARY | 2024-04-21 15:39 | XMS_ITS | Clinical Summary ---
Author Organization [facility] Building B Address [address] [place] [address] Care Team Providers Care Sales Marketing Coordinator Name Role Phone Jose Murillo NP Primary [...] strip TEST ONCE DAILY DIRECTED 06/19/2020 Active jgyisowv-zwj-zz ondroit-vit D3 750 mg-125 mg -600 mg [...] Care Team Description 01/20/[address] 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 Gender Identity Not on file Sexual Orientation Not on file Obstetrics History Last Filed Vital Signs Vital Sign Reading Time Taken Comments Blood Pressure 115/76 01/01/2024 9:59 AM FERTILIZER LOADER Pulse 71 01/01/2024 9:59 AM FERTILIZER LOADER Temperature - - Respiratory Rate 16 01/01/2024 9:59 AM FERTILIZER LOADER Oxygen Saturation 98% 01/01/2024 9:59 AM FERTILIZER LOADER Inhaled Oxygen Concentration - - Weight 83 kg (183 lb) 01/01/2024 9:59 AM FERTILIZER LOADER Height 180.4 cm (5' 11.02 ) 01/01/2024 9:[address] Body Mass Index 25.51 01/01/2024 9:59 AM FERTILIZER LOADER Plan of Treatment Health Maintenance Due Date Last Done Comments Colon Cancer Screening-Colonoscopy 1958 Depression Screening 1958 Fall Risk Assessment 1958 Hepatitis C Screening 1958 Prostate Cancer Screening-PSA 1958 Hepatitis B Screening 1976 Pneumococcal vaccine 65+ (1 of 1 - PCV) 2008 Zoster Vaccine (1 of 2) 2008 Well Visit 65+ 2023 Influenza Vaccine (#1) 2023 9, 12/15/2012, 03/06/2012 DTaP/Tdap/Td Vaccine (4 - Td or Tdap) 08/22/2033 08/23/2023, 10/23/2017, 10/10/2016 Abdominal Aortic Aneurysm (A AA) Screen Completed 08/23/2023 Insurance [employer]ICARE [employer] [facility] MED[facility] Address: [address] [address] [place] [address] [employer]IC[employer] [facility] Address: [address] [address] [place] [address] [employer] Care Teams Sales Marketing Coordinator Relationship Specialty Start Date End Date Jose Murillo NP [address] [place] [id number] PCP - General Nurse Practitioner 08/15/22
--- OUTSIDE RECORDS SUMMARY | 2024-04-21 15:39 | XMS_ITS ---
Author Organization [facility] Address [address] [place] [address] Care Team Providers Care Quickbooks Bookkeeper Name Role Phone Markus Luis Alberto Primary Care Provider [phone] Charmaine Stanford Unavailable [phone] Allergies Allergen (clinical drug ingredient) Drug/Non Drug Allergy documented on EMR Reaction Allergy Type Onset Date Status codeine Codeine Sulfate nausea and vomiting Drug Allergy Active REASON FOR VISIT 1 Month Psych F/U & Med Refill Medications Medication SIG (Take, Route, Frequency, Duration) Notes Start Date End Date Status hydrOXYzine Pamoate 25 MG 1 capsule thre e times a day prn anxiety Orally Once a day for 30 days Active Meloxicam 15 MG 1 tablet Orally Once a day Active Namenda 10 MG 1 tablet Orally Once a day Active traZODone HCl 100 MG 1 tablet at bedtime Orally Once a day for 30 days Active PARoxetine HCl 40 MG 1 tablet in the mor renetta Orally Once a day for 30 days Active Gabapentin 600 MG 1 tablet Orally thre e times a day Active Abilify 2 MG 1 tablet Orally Once a day for 30 days 03/18/2023 Not-Taking Desipramine HCl 10 MG 1 tablet Orally tw ice a day Active Encounters Encounter Location Date Provider Diagnosis [address] [address] 04/16/2023 Charmaine Stanford Mood disorder F39 ; [...] contact the 24-hour crisis hotline (R), refer to the closest emergency room or [...] Name Sig Start Date Stop Date Notes hydrOXYzine Pamoate 25 MG 1 capsule thre e times a day prn anxiety Orally Once a day for 30 days traZODone HCl 100 MG 1 tablet at bedtime Orally Once a day for 30 days PARoxetine HCl 40 MG 1 tablet in the mor renetta Orally Once a day for 30 days Treatment Notes Assessment Notes MDD (major depressive disord er), recurrent episode, mild Encouraged counseling. Will have disclosures signed for [...] May also contact the 24-hour crisis hotline ([facility]), refer to the closest emergency [...] will not result in a negative outcome. Next Appt Details Follow Up: 4 Weeks, Reason: Psychiatric Follow-up & Medication Management Progress Notes * Pavel DAVISDOB:1960 (62 yo M)Acc No.[id number]:04/16/2023 Patient: Pavel CRAFT Provider: ANAT Gurrola :1960 A ge:62 Y S ex:Male Date:04/16/2023 Address:[address] [place] [address], [id number] Subjective: * Chief Complaints: * 1 Month Psych F/U & Med Refill * HPI: D epression Screening: PHQ-9 L ittle interest or pleasure in doing things N ot at all, F eeling down, depressed, or hopeless S everal days, T rouble falling or staying asleep, or [...] as reading the newspaper or watching television N ot at all, M oving or speaking so slowly that other people could have noticed; or the opposite, being so fidgety or restless that you have been moving around a lot more than usual N ot at all, T houghts that you would be better off or of hurting yourself in some way N ot at all, T otal Score 1 , Interpretation M inimal Depression. I ntervention D epression Screening Findings P ositive, F ollow-Up for Depression N o Referral necessary, patient involved in behavioral health treatment .. This session was completed zoom due to COVID-19 emergency, with client/parental/guardian consent. S creening: [place] Suicide Severity Rating Scale (LF) D o [...] or prepared to end your life? N o, I nterpretation: L ow Risk. C SSRS Interpretation and Follow Up Plan: CSSRS Interpretation and Follow Up Plan. CSSRS Interpretation and Follow Up Plan M oderate or High risk requires selection of a follow up plan C SSRS Moderate/high: Warm hand off to Crisis Intervention team. C onstitutional: Chief Complaint: Medication managementHPI: Pavel is a 62 y/o male that presents by telephone for his appt today. He was last seen on 03/18/2023 for an initial psychiatric evaluation. At that time we refilled paroxetine and Trazodone. We started Vistaril and Abilify. He stopped taking Abilify because it made him so tired he could not get off the couch. He is taking Vistaril as needed, up to once a day. I take it and I am fine. I am feeling like the separation is a good thing, it helped clear my head. I feel guilty for not missing her more. My whole head is clear. Pavel was hospitalized on 03/01/[address] [facility]. He reports he couldn't calm himself down after what his expressed that she did not want to be with him anymore. He had SI with no plan. He was kept for a couple days and discharged. He and his are now , and he is staying with his daughter and grandson. He reports that this is good for him. His daughter is a and needed repairs around the house. He denies any mental health diagnosis. He reports a hx of dementia. He sees a neurologist. He is on Namenda, and she also prescribes Desipramine for enuresis. He has been taking Paxil for my racing thoughts for the last 4-5 years prescribed by his PCP. He also takes Trazodone to sleep. His PCP prescribes Gabapentin for neuropathy. He denies any howie or SIB/SI/HI/AVH. No impulsivity or paranoia. No previous hospitalizations for MH. No family hx of MH or completed suicides. He is living with his daughter and grandson. He is on disability. He has been retired for 8 years. No hx of trauma. PHQ-9 on 03/18/2023 was 2. Today's PHQ-9 is 1.Previous Diagnosis: Denies any diagnosis except for dementia. He has been on paroxetine 4-5 years to calm his thoughts down.Goals: Focus on himself.Coping strategies: Marijuana, WalkingSocial Activities/Hobbies: Being outdoors, camping, hiking, researchingDrugs/ETOH/nicotine: ETOH 3-4 times a year, Vapes, No drug use.Therapy: He reports he has been too busy to get into therapy.Medications effective: YesMedication Adherence: Has HERO dispenser.Side effects: Abilify was sedating.Past medications: Current medications: Trazodone, Paroxetine, Desipramine (prescribed by neurology for enuresis), Abilify (sedating)Sleep: Sleep is great. Appetite: Good appetiteDepression: 2/10, 10 is the worstAnxiety/Panic attacks: 2/10, 10 is the worstAnger/Irritability: Denies.Hallucinations/Paranoia: Denies.Current Suicidal ideation: Denies.Past suicidal ideation: February 2023Homicidal ideation: Denies.Medical concerns: Ryan Murillo APN is his PCP in [facility] Quan is his Neurologist through [facility] hx of seizures. Dementia, Borderline Diabetes. Hx of concussions. Has chronic left arm pain and weakness from fracture (had a fall from a roof in 2019)Hospitalizations/medication changes by other providers: He has never been in counseling.He was hospitalized for MH 03/01/[address] [facility] for SI.FMH: Mother-Cardiac Disease, CAD, 5 vessel CABG, she is mentally out there. Father-, CVA'jGXT-YhfojxsYMX-PvrhkatQDG-UnknownPGF-UnknownOlder Sister-HealthyYounger Brother-HealthyYounger Sister-HealthyTwin daughters (age 42)-HealthySon (age 38)-HealthyNo family hx of completed suicide.Legal Concerns: DeniesSupport system: DaughterLabs: Need disclosure for medical records and labs from February 2023. * ROS: * PSYCH ROS2: Elevated mood symptoms D [...] elbow repair * Hospitalization/Major Diagno stic Procedure: N o Hospitalization History. * Family History: N o Family History [...] Status E mployment Status: O n Disability. P RESCRIPTION # FILLED WRITTEN DRUG LABEL QTY DAYS STRENGTH MME PRESCRIBER PHARMACY REFILL NO. REFILLS STATE PATIENT [id number] 03/17/2023 08/15/2022 Gabapentin 405.0 90 600 MG NA Emma Glass Md [id number] [place], [place] NA 3 [place] [id number] 03/04/2023 03/04/2023 LORazepam 7.0 3 0.5 MG Milton Lau C, Md - [id number] [place], [place] NA 0 [place] [id number] 11/26/2022 08/15/2022 Gabapentin 405.0 90 600 MG NA Emma Glass Md [id number] [facility]. * Medications: T akingNamenda 10 MG Tablet 1 tablet Orally Once a day Meloxicam 15 MG Tablet 1 tablet Orally Once a day Gabapentin 600 MG Tablet 1 tablet Orally three times a day Desipramine HCl 10 MG Tablet 1 tablet Orally twice a day PARoxetine HCl 40 MG Tablet 1 tablet in the morning Orally Once a day traZODone HCl 100 MG Tablet 1 tablet at bedtime Orally Once a day hydrOXYzine Pamoate 25 MG Capsule 1 capsule three times a day prn anxiety Orally Once a day Taking Namenda 10 MG Tablet 1 tablet Orally Once a day Taking Meloxicam 15 MG Tablet 1 tablet Orally Once a day Taking Gabapentin 600 MG Tablet 1 tablet Orally three times a day Taking Desipramine HCl 10 MG Tablet 1 tablet Orally twice a day Taking PARoxetine HCl 40 MG Tablet 1 tablet in the morning Orally Once a day Taking traZODone HCl 100 MG Tablet 1 tablet at bedtime Orally Once a day Taking hydrOXYzine Pamoate 25 MG Capsule 1 capsule three times a day prn anxiety Orally Once a day Not-TakingAbilify 2 MG Tablet 1 tablet Orally Once a day Medication List reviewed and reconciled with the patientNot-Taking Abilify 2 MG Tablet 1 tablet Orally Once a day Medication List reviewed and reconciled with the patient * Allergies: C odeine Sulfate: nausea and vomitingno[Allergies Verified] Objective: * Vitals: I nitials: CLS, Pain scale:2.Denies any physical symptoms; unable to obtain vital signs due to telephone encounter. [...] rotective Factors M arried, Children, Coping Skills, Cultural/Hindu Ideology, Denies Intent/Desire/Means. Assessment: * Assessment: 1. M ood disorder - F39 (Primary) 2 . M DD (major depressive disorder), recurrent episode, mild - F33.0 3 . A nxiety - F41.9 Plan: * Treatment: 2. A nxiety Continue hydrOXYzine Pamoate Capsule, 25 MG, 1 capsule three times a day prn anxiety, Orally, Once a day, 30 days, 90 Capsule, Refills 0. 3. O thers Notes: Patient was educated on diagnosis and symptoms. [...] May also contact the 24-hour crisis hotline ([facility]), refer to the closest emergency [...] will not result in a negative outcome. * Procedure Codes: * Follow Up: 4 Weeks (Reason: Psychiatric Follow-up & Medication Management) * * RAL OFFICE EQUIPMENT INSTALLER Sign off status: Completed true * Provider: ANAT Gurrola Date: 0 04/16/2023 Generated for Liz correa/Karen/eTransmitting on: 0 04/21/2024 03:39 PM CENTRAL OFFICE EQUIPMENT INSTALLER History and Physical Notes * HPI (History of Present Illness) Category Sub-Category Detail Notes Category Not es Depression Screening PHQ-9 Little inte rest or pleasure in doing things: Not at all This session was completed zoom due to COVID-19 emergency, with client/parental/myla n consent. Feeling down, depressed, or hopeless: Se veral days Trouble falling or staying asleep, or sl [...] as reading the newspaper or watching television: Not at all Moving or speaking so slowly that other people could have noticed; or the opposite, being so fidgety or restless that you have been moving around a lot more than usual: Not at all Thoughts that you would be b luna off or of hurting yourself in some way: Not at all Total Score: 1 Interpretation: Minimal Depression Intervention Depression Screening Findings: P ositive Follow-Up for Depression: No Referral necessary, patient involved in behavioral health treatment . Constitutional Chief Complaint: Medication managementHPI: Pavel is a 62 y/o male that presents by telephone for his appt today. He was last seen on 03/18/2023 for an initial psychiatric evaluation. At that time we refilled paroxetine and Trazodone. We started Vistaril and Abilify. He stopped taking Abilify because it made him so tired he could not get off the couch. He is taking Vistaril as needed, up to once a day. I take it and I am fine. I am feeling like the separation is a good thing, it helped clear my head. I feel guilty for not missing her more. My whole head is clear. Pavel was hospitalized on 03/01/[address] [facility]. He reports he couldn't calm himself down after what his expressed that she did not want to be with him anymore. He had SI with no plan. He was kept for a couple days and discharged. He and his are now , and he is staying with his daughter and grandson. He reports that this is good for him. His daughter is a and needed repairs around the house. He denies any mental health diagnosis. He reports a hx of dementia. He sees a neurologist. He is on Namenda, and she also prescribes Desipramine for enuresis. He has been taking Paxil for my racing thoughts for the last 4-5 years prescribed by his PCP. He also takes Trazodone to sleep. His PCP prescribes Gabapentin for neuropathy. He denies any howie or SIB/SI/HI/AVH. No impulsivity or paranoia. No previous hospitalizations for MH. No family hx of MH or completed suicides. He is living with his daughter and grandson. He is on disability. He has been retired for 8 years. No hx of trauma. PHQ-9 on 03/18/2023 was 2. Today's PHQ-9 is 1.Previous Diagnosis: Denies any diagnosis except for dementia. He has been on paroxetine 4-5 years to calm his thoughts down.Goals: Focus on himself.Coping strategies: Marijuana, WalkingSocial Activities/Hobbies: Being outdoors, camping, hiking, researchingDrugs/ETOH/nicotine: ETOH 3-4 times a year, Vapes, No drug use.Therapy: He reports he has been too busy to get into therapy.Medications effective: YesMedication Adherence: Has HERO dispenser.Side effects: Abilify was sedating.Past medications: Current medications: Trazodone, Paroxetine, Desipramine (prescribed by neurology for enuresis), Abilify (sedating)Sleep: Sleep is great. Appetite: Good appetiteDepression: 2, 10 is the worstAnxiety/Panic attacks: 04/06, 10 is the worstAnger/Irritability: Denies.Hallucinations/Paranoia: Denies.Current Suicidal ideation: Denies.Past suicidal ideation: February 2023Homicidal ideation: Denies.Medical concerns: Ryan Murillo APN is his PCP in [facility] Quan is his Neurologist through [facility] No hx of seizures. Dementia, Borderline Diabetes. Hx of concussions. Has chronic left arm pain and weakness from fracture (had a fall from a roof in 2019)Hospitalizations/medication changes by other providers: He has never been in counseling.He was hospitalized for MH 03/01/[address] [facility] for SI.FMH: Mother-Cardiac Disease, CAD, 5 vessel CABG, she is mentally out there. Father-, CVA'cBMV-SmjpmawVRD-IlbcjmbNUS-UnknownPGF-UnknownOlder Sister-HealthyYounger Brother-HealthyYounger Sister-HealthyTwin daughters (age 42)-HealthySon (age 38)-HealthyNo family hx of completed suicide.Legal Concerns: DeniesSupport system: DaughterLabs: Need disclosure for medical records and labs from February 2023. Screening [place] Suicide Severit y Rating Scale (LF) Do you want to initiat e with: Screene r form 1. Wish to be : Have you wished you were or wished you could go to sleep and not wake up?: No 2. Suicidal Thoughts: Have you actually had any thoughts of killing yourself?: No 6. Suicide Behavior Question: Have you ever done anything,started to do anything, or prepared to end your life?: No Interpretation:: Low Risk Do Not Use CSSRS Interpretation and Follow Up Plan CSSRS Interpretation and Follow Up Plan Moderate or High risk requires selection of a follow up plan: CSSRS Moderate/high: Warm hand off to Crisis Intervention team Examination Category Sub-Category Detail Notes Category Not [...] Exam Protective Factors: , Children, Coping Skills, Cultural/Hindu Ideology, Denies Intent/Desire/Means
--- OUTSIDE RECORDS SUMMARY | 2024-04-21 15:39 | XMS_ITS | Patient Health Record ---
Author Organization [facility] Address [address] [place] [address] Care Team Providers Care Cable Splicer Apprentice Name Role Phone Aparicio Luis Alberto Primary Care Provider [phone] Charmaine Stanford Unavailable [phone] Allergies Allergen (clinical drug ingredient) Drug/Non Drug [...] Section Notes: PRESCRIPTION #FILLEDWRITTEND RUG LABELQTYDAYSSTRENGTHMMEPRESCRIBERPHARMACYREFILL NO.REFILLSSTATEPATIENT [id number] Milton Batista C, Md - [id number] Community [id number]//[id number] MGNAEmma Glass Md [id number] Eye Hospital, [id number] MGNAFaber, Emma Simeon [id number] Health [facility], [id number] MGNAFaberEmma Md [id number] PRESCRIPTION # FILLED WRWILLE N DRUG LABEL QTY DAYS STRENGTH MME PRESCRIBER PHARMACY REFILL NO. REFILLS STATE PATIENT [id number] 03/17/2023 08/15/2022 Gabapentin 405.0 90 600 MG NA Emma Glass Md [id number] [place], [place] NA 3 [place] [id number] 03/04/2023 03/04/2023 LORazepam 7.0 3 0.5 MG NA Milton Guevara C, Md - [id number] [place], [place] NA 0 [place] [id number] 11/26/2022 08/15/2022 Gabapentin 405.0 90 600 MG NA Emma Glass Md [id number] [facility] Problems Problem Type SNOMED Code ICD Code Onset Dates Problem Status W/U Status Risk Notes Problem Mood disorder (86915285) Mood disorder (F39) 03/18/2023 Active confirmed Problem Anxiety (95394231) Anxiety (F41.9) 03/18/2023 Active confirmed Problem Mild recurrent major depression (27563394) MDD (major depressive disorder), recurrent episode, mild (F33.0) 03/18/2023 Active confirmed Plan Of Treatment No Information Insurance Providers Payer Name Payer Address Payer Phone Subscriber Number Group Number Insured Name Patient Relationship to Insured Coverage Start Date Coverage End Date [employer] Medicare [address] [address] [place] [address] [phone] [id number] Pavel Davis Self - patient is the insured 4 Medical (General) History Medical History History ICD Code Dementia Borderline Diabetes Left arm injury, chronic pain Surgical History Surgery Date(Month/Year) appendectomy hemorrhoidectomy cyst removal from right ankle right shoulder- torn bicep repair left elbow repair
== END 2024-04-21 13:40 | disposition home or self-care (01) ==
PROVIDERS: PCP Nurse Practitioner Family; Visit Provider Internal Medicine Gastroenterology
DX: K63.89 Other specified diseases of intestine (principal)
CPT/HCPCS: 74177; Q9967

== ENCOUNTER 2024-04-24 09:56 | Outpatient (CLI) | payer MEDICARE, SELFPAY ==
[2024-04-24 12:15] LABS: Hematocrit 38.2 % (42.0-52.0); Hemoglobin 12.4 g/dL (14.0-18.0)
== END 2024-04-24 09:57 | disposition home or self-care (01) ==
LOC: ANHSURGERY 10:00
PROVIDERS: Anesthesiology; PCP Nurse Practitioner Family; Visit Provider Surgery
DX: Z01.818 Encounter for other preprocedural examination (principal); K63.89 Other specified diseases of intestine
CPT/HCPCS: 36415; 85014; 85018; 86850; 86900; 86901; 93005

== ENCOUNTER 2024-05-04 07:05 | Inpatient (IN) | payer MEDICARE, SELFPAY ==
[2024-04-24 10:13] VITALS: BP 126/66; PULSE 57; RESP 16; TEMP 37.1; O2SAT 98; BMI 26.4
--- NOTE | 2024-04-24 10:38 | PC.NURSE ---
Addendum entered by Deirdre Ellis RN 04/30/24 10:10: MESSAGE LEFT FOR PATIENT TO HOLD MELOXICAM PER DR INIGUEZ INSTRUCTIONS. INSTR TO RETURN CALL OFFICE WITH QUESTIONS. Addendum entered by Deirdre Ellis RN 04/24/24 11:17: PATIENT RELAYS GOOD UNDERSTANDING OF DR INIGUEZ INSTRUCTIONS: ANTIBIOTIC ON DAY BEFORE SURGERY, ENSURE BUNDLE INTAKE, BOWEL PREP AND HIBICLENS SHOWER DAY BEFORE AND MORNING OF SURGERY. Original Note: Report to the Outpatient Waiting Room, entrance under the green pavilion located off [facility], at time __6:30AM on date ___05/04/24____. Planned Procedure Time: ___8:30AM .? Time changes happen often and if your time is changed the preop area will call you the afternoon before. - You and your visitor will be asked to self-screen and do not enter if you have any COVID symptoms. Please call surgeon if you need to reschedule. - A mask is optional within the hospital at this time. Patients may have clear liquids (water, carbonated beverages, clear teas, apple juice) until 3 hours prior to surgery (5:30AM) with a maximum of 20 ounces. - No food from midnight until time of surgery and no smoking, or chewing tobacco (or any form of nicotine). No chewing gum, candy or mints. Take only the following medications with a SIP of water on the morning of surgery: ____PAROXETINE, PREGABALIN DO NOT STOP ANY OF YOUR OTHER PRESCRIPTION MEDICATIONS PRIOR TO SURGERY EXCEPT THE FOLLOWING Hold all vitamins and supplements for 3 days per anesthesiologist.- LAST DOSE 04/30/24 Please no make-up, nail turkish, hairspray, perfume, deodorant, or body powder the day of surgery.? No jewelry (including any body piercings) or valuables the day of surgery, leave them at home.? Please take a shower or bath the night before, or the morning of, surgery with an antibacterial soap.? Wear comfortable, loose fitting clothing.? - Jewelry must be removed prior to entering the operating room.? Rings and piercings that are not removed may be cut off. - The hospital will not accept responsibility for valuables.? - Please leave all valuables, including medications, at home the day of surgery. If you are going home after surgery, a licensed dumpster driver must drive you home.? - NO public transportation without another adult if you receive anesthesia. - We recommend that an adult stay with you for 24 hours following discharge. - We also recommend that you do not drive, make important decision, drink alcoholic beverages, or take any drugs that were not prescribed by your health care provider for at least 24 hours after your discharge time. Follow any additional instructions given to you from your surgeon. Telephone instructions given to ____PATIENT and asked if any additional questions and then verbalized understanding. Patient advised to call surgeon office or pre surgery nurse liaison [phone] if any additional questions.
--- NOTE | 2024-05-02 10:39 | PM.IMHP ---
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 Type 2 diabetes mellitus Skin lesions Screening for prostate cancer Dementia Benign essential hypertension History of TIAs Hx of deep venous thrombosis Mixed hyperlipidemia Surgical History Surgical History History of ankle surgery H/O elbow surgery H/O shoulder surgery History of appendectomy Family History Family History Mother Family history of heart disease in male family member before age 55 Grandparent Family history of heart disease in male family member before age 55 Other Family history of dementia Hypertension Social History Social History Smoking packs per day: 1 Smoking cigarettes per day: 20.0 Years smoked: 50 Smoking pack-years: 50.00 Smoking status: Current every day smoker Tobacco type: e-cigarettes/vaping Additional smoking assessment comments: VAPES 10 TIMES/DAY CURRENTLY, CIGARETTES X40 YEARS Alcohol intake: never Substance use: current Substance use type: marijuana Other substance usage details: SMOKES MARIJUANA IN EVENING Last use: 03/31/2024 Do You Feel Safe in your Home?: Yes Lack of Transportation: No Lack of Food: Never True Current Housing: I Have Housing Concerned About Future Housing: No Difficulty Paying Gas/Electric Bills: No Difficulty Paying for Meds: No Currently Unemployed: Decline to Answer Education: Master's Degree or Higher Difficulty w/ Childcare or Family Care: No Living arrangements: with family Additional living arrangements comments: DAUGHTER AND GRANDSON Spiritual care concerns: No Meds Home Medications and Allergies Home Medications ?Medication ?Instructions ?Recorded ?Confirmed ?Type meloxicam 15 mg tablet 15 mg PO DAILY 06/03/20 04/24/24 History memantine 10 mg tablet 10 mg PO QPM 12/26/22 04/24/24 History coenzyme Q10 400 mg capsule 400 mg PO DAILY 02/17/24 04/24/24 History pregabalin 75 mg capsule 75 mg PO BID 02/17/24 04/24/24 History rosuvastatin 10 mg tablet 10 mg PO DAILY #90 tabs 02/17/24 04/24/24 Rx trazodone 100 mg tablet 100 mg PO HS #90 tabs 03/19/24 04/24/24 Rx ciprofloxacin HCl 500 mg tablet 500 mg .Route .COMPLEX #1 tablet 04/16/24 04/24/24 Rx metronidazole 500 mg tablet 500 mg .Route .COMPLEX #3 tabs 04/16/24 04/24/24 Rx xykmyeif-jvyqxk-kcwmu extract 5 4 cap PO DAILY 04/24/24 04/24/24 History mg-6 mg-150 mg capsule (Fruit and Vegetable Daily) turmeric 400 mg capsule 100 mg PO DAILY 04/24/24 04/24/24 History paroxetine HCl 40 mg tablet 40 mg PO DAILY #90 tabs 04/27/24 Rx Allergies Allergy/AdvReac Type Severity Reaction Status Date / Time codeine AdvReac Intermediate Nausea and Verified 04/24/24 10:05 Vomiting Exam Narrative: NA Assessment and Plan Assessment and plan (1) Mass of colon: Code(s): K63.89 - Other specified diseases of intestine Status: Acute Assessment and Plan: cysto pre-op stents
[2024-05-04] VITALS (16 sets, daily range): BP systolic 126–158; BP diastolic 64–88; PULSE 70–95; RESP 7–22; TEMP 35.8–37; O2SAT 95–100
--- OUTSIDE RECORDS SUMMARY | 2024-05-04 01:41 | XMS_ITS | Patient Health Record ---
Author Organization [facility] Address [address] [place] [address] Care Team Providers Care X Ray Developing Machine Operator Name Role Phone AparicioLuis Alberto meraz Primary Care Provider Charmaine Stanford Unavailable [phone] Allergies Allergen (clinical drug ingredient) Drug/Non Drug [...] Notes Tobacco use: Nonsmoker Section Notes: PRESCRIPTION # FILLED WRITTE N DRUG LABEL QTY DAYS STRENGTH MME PRESCRIBER PHARMAC[facility] REFILL NO. REFILLS STATE PATIENT [id number] 03/17/2023 08/15/2022 Gabapentin 405.0 90 600 MG NA Emma Glass Md - [id number] [place], [place] NA 3 ID [id number] 03/04/2023 03/04/2023 LORazepam 7.0 3 0.5 MG NA Milton Guevara C, Md - [id number] [place], [place] NA 0 [place] [id number] 11/26/2022 08/15/2022 Gabapentin 405.0 90 600 MG NA Emma Glass Md [id number] [facility] PRESCRIPTION #FILLEDWRITTEND RUG LABELQTYDAYSSTRENGTHMMEPRESCRIBERPHARMACYREFILL NO.REFILLSSTATEPATIENT [id number]/LORazepam7.030.5 MGMilton Garibay C, Md - [id number] Hospital Of [facility], [id number]//4439Yhaascgbsw256.263928 MGNAEmma heard Md [id number] Hospital Of Pittsburgh, [id number]//9263Tagkgsgjtb959.221610 MGNAEmma heard Md [id number], [id number]//3929Adppboxbsz546.655391 MGFormerly West Seattle Psychiatric HospitalEmma heard Md [id number] Problems Problem Type SNOMED Code ICD Code Onset Dates Problem Status W/U Status Risk Notes Problem Mood disorder (17395372) Mood disorder (F39) 03/18/2023 Active confirmed Problem Anxiety (20680522) Anxiety (F41.9) 03/18/2023 Active confirmed Problem Mild recurrent major depression (90406506) MDD (major depressive disorder), recurrent episode, mild (F33.0) 03/18/2023 Active confirmed Plan Of Treatment No Information Insurance Providers Payer Name Payer Address Payer Phone Subscriber Number Group Number Insured Name Patient Relationship to Insured Coverage Start Date Coverage End Date UHC AARP Medicare [address] [address] [place] [address] [id number] Pavel Davis Self - patient is the insured Medical (General) History Medical History History ICD Code Dementia Borderline Diabetes Left arm injury, chronic pain Surgical History Surgery Date(Month/Year) appendectomy hemorrhoidectomy cyst removal from right ankle right shoulder- torn bicep repair left elbow repair
--- OUTSIDE RECORDS SUMMARY | 2024-05-04 01:41 | XMS_ITS | Clinical Summary ---
Author Organization [facility] Address Formerly [facility] [place] [address] Care Team Providers Care Environmental Science Program Director Name Role Phone None, Provider MD Primary [...] 1:38 PM CDT Height 180.3 cm (5' 11) 08/23/2023 1:38 PM CDT Body Mass Index 27.03 08/23/2023 1:38 PM CDT Plan of Treatment Health Maintenance Due Date Last Done Comments Colorectal Cancer Screening Colonoscopy (10 Years) 1960 Hepatitis C 1976 RSV Immunization or 60+ Years (1 - Risk 60-74 years 1-dose series) 2018 Annual Medicare Wellness Visit 2023 COVID-19 Vaccine (3 season) 2023 06/03/2020, 05/13/2020 Influenza Adult (#1) [...] this topic Insurance [employer] Member Subscriber Plan / Payer (Ef fective 2023-Present) Name:Pavel Davis Relation to Subscriber:Self Name:Pavel Davis Payer ID:Not on file Group ID:Not on file Type:Not on file Address: [address] [place] [address] Care Teams Environmental Science Program Director Relationship Specialty Start Date End Date None, Provider, PCP - General UNKNOWN PHYSICIAN SPECIALTY 08/23/23
--- OUTSIDE RECORDS SUMMARY | 2024-05-04 01:41 | XMS_ITS ---
Author Organization [facility] Address [address] [place] [address] Care Team Providers Care Hadoop Admin Name Role Phone Markus Luis Alberto Primary Care Provider Charmaine Stanford Unavailable [phone] Allergies Allergen (clinical drug ingredient) Drug/Non Drug [...] 3 Anxiety (F41.9) Referral Organization [facility] Referring Provider First Name Charmaine Referring Provider Last Name Hien Referring Provider Speciality Psychiatry Referred Provider Specialty [facility] Clinical Notes Ashley Gifford 03/18 02:05:48 [...] Section Notes: PRESCRIPTION #FILLEDWRITTEND RUG LABELQTYDAYSSTRENGTHMMEPRESCRIBERPHARMACYREFILL NO.REFILLSSTATEPATIENT [id number]//09/20232242ZGWqoqgkh0.030.5 Milton Batista C, Md - [id number] State Health, [id number]//6691Wkayxlzcyt516.138609 [facility] HOSPITALEmma Glass Md [id number] John of God [id number]//4134Rhozapccgd081.916127 MGEmma Glass Md [id number] [id number]//3231Ziunvozmnu737.525635 MGEmma Pina Md [id number] Problems Problem Type SNOMED Code ICD Code Onset Dates Problem Status W/U Status Risk Notes Problem Mood disorder (67092274) Mood disorder (F39) 03/18/2023 Active confirmed Problem Mild recurrent major depression (05896295) MDD (major depressive disorder), recurrent episode, mild (F33.0) 03/18/2023 Active confirmed Problem Anxiety (60379544) Anxiety (F41.9) 03/18/2023 Active confirmed Encounters Encounter Location Date Provider Diagnosis [place] [address] [place] [address] 03/18/2023 Charmaine Stanford Mood disorder F39 ; [...] May also contact the 24-hour crisis hotline ([facility]), refer to the closest emergency room or [...] May also contact the 24-hour crisis hotline ([facility]), refer to the closest emergency room or [...] Notes * Pavel IRVINDOB:1960 (62 yo M)Acc No.[id number]:03/18/2023 Patient: Geovanna Pavel GOMEZ Provider: ANAT Gurrola :1960 A ge:62 Y S ex:Male Date:03/18/2023 Address:[address] [place] [address], [facility] Subjective: * Chief Complaints: * n ew [...] HOUSE-19 emergency, with client/parental/guardian consent. S creening: [place] Suicide Severity Rating Scale (LF) D o [...] ordered through his primary- Ryan Murillo in [place], [place]- agreed to electronically sign ILA for results, H IV Screening: D iscussed need for HIV screening. Patient declined.. . C onstitutional: Expectations of this visit- Why present now? Symptoms Present- A couple of weeks ago, my told me some news I didn't like and I went off the deep end. I ended up in [facility] because I couldn't calm down. I [...] was hospitalized on 03/01/2023 for MH at [facility]. He reports he couldn't calm himself [...] Desipramine for enuresis. My mind is like cambodian cheese. He has been taking Paxil for [...] me down. Walking. 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 Decide whether or not to [...] counseling. He was hospitalized for 03/01/2023 at [facility] for .MEDICAL HISTORY-- Allergies-Codeine (N/A) Other Medications- Gabapentin, Meloxicam, Namenda Medical Concerns- No hx of seizures. Dementia, Borderline Diabetes. Hx of concussions. Has chronic left arm pain and weakness from fracture (had a fall from a roof in 2019) LMP-- N/A Therapist- He is not in therapy. Primary Care Physician- Ryan Murillo APN is his PCP in [place] Emma Glass is his Neurologist through [facility] Recent Labs- Recent labs when hospitalized, will have him sign a disclosure.FAMILY HEALTH HISTORY- - Mother-Cardiac Disease, CAD, 5 vessel CABG, she is mentally out there. Father-, CVA's MGM-Unknown MGF-Unknown PGM-Unknown PGF-Unknown Older Sister-Healthy Younger Brother-Healthy Younger Sister-Healthy Twin daughters (age 42)-Healthy Son (age 38)-Healthy No family hx of completed suicide.SOCIAL HISTORY- S moking history---Vapes Drug/alcohol useSubstance A lcoholI really don't drink, maybe one in a social setting which is like 3-4 times per year. MarijuanaDaily use. I do that for pain. C ocaineDenies use. HeroinDenies use. MethDenies use. LSD/PCPDenies use. IV drugsDenies use. OTC/Rx drugsDenies use. location- Born in [place], [place] (Lived there until age 18) Current home location- Lives in [place], [place] Who lives at home? Living with [...] Shopping, going outside. Spiritual Affiliation- I am Baptist. Probation/Legal trouble/?- Denies. * ROS: P sych [...] N onsmoker. P RESCRIPTION #FILLEDWRITTENDRUG LABELQTYDAYSSTRENGTHMMEPRESCRIBERPHARMACYREFILL NO.REFILLSSTATEPATIENT [id number] Milton Batista C, Md - [id number] State Health, [id number]//2771Rxxhgaandj948.097273 MGEmma Pina Md - [id number] State Health, [id number]//7991Hxovuwmtpn971.019271 Emma Chavez Md [id number] Private Hospital, [id number]//4651Zlvqproobz982. Emma Chavez Md [id number]. * Medications: T akingNamenda 10 MG Tablet [...] rotective Factors M arried, Children, Coping Skills, Cultural/Faith Ideology, Denies Intent/Desire/Means. Assessment: * Assessment: 1. [...] follow up from new evaluation) * * SCRIPTS ARCHIVIST Sign off status: Completed true * Provider: ANAT Gurrola Date: 0 03/18/2023 Generated for Liz correa/Karen/Marissa on: 0 05/04/2024 01:41 AM CDT History and Physical Notes * HPI (History [...] the deep end. I ended up in [facility] because I couldn't calm down. I [...] was hospitalized on 03/01/2023 for MH at [facility]. He reports he couldn't calm himself [...] Desipramine for enuresis. My mind is like cambodian cheese. He has been taking Paxil for [...] me down. Walking. 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 Decide whether or not to move [...] He was hospitalized for MH 03/01/2023 at [facility] for SI. MEDICAL HISTORY-- Allergies- Codeine (N/A) Other Medications- Gabapentin, Meloxicam, Namenda Medical Concerns- No hx of seizures. Dementia, Borderline Diabetes. Hx of concussions. Has chronic left arm pain and weakness from fracture (had a fall from a roof in 2019) LMP-- N/A Therapist- He is not in therapy. Primary Care Physician- Ryan Murillo APN is his PCP in [place] Emma Glass is his Neurologist through [facility] Recent Labs- Recent labs when hospitalized, will [...] OTC/Rx drugs Denies use. location- Born in [place], [place] (Lived there until age 18) Current home location- Lives in [place], [place] Who lives at home? Living with [...] Shopping, going outside. Spiritual Affiliation- I am Baptist. Probation/Legal trouble/?- Denies. SARAH-7 Screening 1. Feeling [...] SARAH-7 Score Total score: 13 : Screening [place] Suicide Sev erity Rating Scale (LF) Do [...] ordered through his primary- Ryan Murillo in [place], [place]- agreed to electronically sign ILA for [...] Exam Protective Factors: , Children, Coping Skills, Cultural/Faith Ideology, Denies Intent/Desire/Means Consultation Request Notes Referral Date Referring Provider Referred Provider Not es 03/18/2023 Charmaine Stanford , New pt eval. R ecent hospitalization after separation from of 30 years. No current SI
--- OUTSIDE RECORDS SUMMARY | 2024-05-04 01:41 | XMS_ITS ---
Author Organization [facility] Address [address] [place] [address] Care Team Providers Care Transitions Manager Name Role Phone Markus Luis Alberto Primary Care Provider Charmaine Stanford Unavailable [phone] Allergies Allergen (clinical drug ingredient) Drug/Non Drug [...] Active Encounters Encounter Location Date Provider Diagnosis [address] [address] 04/16/2023 Charmaine Stanford Mood disorder F39 ; [...] May also contact the 24-hour crisis hotline ([facility]), refer to the closest emergency room [...] Notes * Pavel DAVISDOB:1960 (62 yo M)Acc No.[id number]:04/16/2023 Patient: Pavel CRAFT Provider: ANAT Gurrola :1960 A ge:62 Y S ex:Male Date:04/16/2023 Address:[address] [place] [address], [facility] Subjective: * Chief Complaints: * 1 Month [...] COVID-19 emergency, with client/parental/guardian consent. S creening: [place] Suicide Severity Rating Scale (LF) D o [...] on 03/01/[address] [facility]. He reports he couldn't calm himself [...] neurology for enuresis), Abilify (sedating)Sleep: Sleep is great.Appetite: Good appetiteDepression: 2/10, 10 is the worstAnxiety/Panic attacks: 2/10, 10 is the worstAnger/Irritability: Denies.Hallucinations/Paranoia: Denies.Current Suicidal ideation: Denies.Past suicidal ideation: February 2023Homicidal ideation: Denies.Medical concerns: Ryan Murillo APN is his PCP in [facility] Quan is his Neurologist through [facility] hx of seizures. Dementia, Borderline Diabetes. Hx of concussions. Has chronic left arm pain and weakness from fracture (had a fall from a roof in 2019)Hospitalizations/medication changes by other providers: He has never been in counseling.He was hospitalized for MH 03/01/[address] [facility] for SI.FMH: Mother-Cardiac Disease, CAD, 5 vessel CABG, she is mentally out there.Father-, CVA'tWRG-JclukybRFA-XnbhsqxNTM-UnknownPGF-UnknownOlder Sister-HealthyYounger Brother-HealthyYounger Sister-HealthyTwin daughters (age 42)-HealthySon (age [...] PRESCRIBER PHARMACY REFILL NO. REFILLS STATE PATIENT [id number] 03/17/2023 08/15/2022 Gabapentin 405.0 90 600 MG NA Emma Glass Md [id number] [place], [place] NA 3 [place] [id number] 03/04/2023 03/04/2023 LORazepam 7.0 3 0.5 MG Milton Lau C, Md - [id number] [place], [place] NA 0 [place] [id number] 11/26/2022 08/15/2022 Gabapentin 405.0 90 600 MG NA Emma Glass Md [id number] [facility]. * Medications: T akingNamenda 10 MG Tablet [...] rotective Factors M arried, Children, Coping Skills, Cultural/Christianity Ideology, Denies Intent/Desire/Means. Assessment: * Assessment: 1. [...] May also contact the 24-hour crisis hotline ([facility]), refer to the closest emergency room [...] Psychiatric Follow-up & Medication Management) * * LING MONITOR Sign off status: Completed true * Provider: ANAT Gurrola Date: 0 04/16/2023 Generated for Liz correa/Karen/eTransmitting on: 0 05/04/2024 01:41 AM CDT History [...] hospitalized on 03/01/[address] [facility]. He reports he couldn't calm himself [...] neurology for enuresis), Abilify (sedating)Sleep: Sleep is great.Appetite: Good appetiteDepression: 2, 10 is the worstAnxiety/Panic attacks: 04/06, 10 is the worstAnger/Irritability: Denies.Hallucinations/Paranoia: Denies.Current Suicidal ideation: Denies.Past suicidal ideation: February 2023Homicidal ideation: Denies.Medical concerns: Ryan Murillo APN is his PCP in [facility] Quan is his Neurologist through [facility] No hx of seizures. Dementia, Borderline Diabetes. Hx of concussions. Has chronic left arm pain and weakness from fracture (had a fall from a roof in 2019)Hospitalizations/medication changes by other providers: He has never been in counseling.He was hospitalized for MH 03/01/[address] [facility] for SI.FMH: Mother-Cardiac Disease, CAD, 5 vessel CABG, she is mentally out there.Father-, CVA'qJAX-VapjzqbNPF-LdwmjnsRKG-UnknownPGF-UnknownOlder Sister-HealthyYounger Brother-HealthyYounger Sister-HealthyTwin daughters (age 42)-HealthySon (age [...] Exam Protective Factors: , Children, Coping Skills, Cultural/Christianity Ideology, Denies Intent/Desire/Means
--- OUTSIDE RECORDS SUMMARY | 2024-05-04 01:41 | XMS_ITS | Clinical Summary ---
Author Organization [facility] Address [address] [place] [address] Phone Care Team Providers Care Varnish Inspector Name Role Phone Provider, Unknown Primary Care [...] 10:35 AM CDT Height 180.3 cm (5' 11) 11/02/2022 10:35 AM CDT Body Mass Index 29.99 11/02/2022 10:35 AM CDT Plan of Treatment Not on file Insurance MEDICARE C [facility] Care Teams Varnish Inspector Relationship Specialty Start Date End Date Provider, Unknown UNKNOWN PCP - General 11/02/22
--- OUTSIDE RECORDS SUMMARY | 2024-05-04 01:41 | XMS_ITS ---
Author Organization [facility] Address [address] [place] [address] Care Team Providers Care Plasterer Spot Name Role Phone AparicioLuis Alberto meraz Primary Care Provider [phone] Charmaine Stanford Unavailable [phone] REASON FOR VISIT 1 Month Psych F/U [...] Not-Taking Encounters Encounter Location Date Provider Diagnosis [address] [address] 05/13/2023 Charmaine Stanford Plan Of Treatment No Information Progress Notes * Pavel DAVISDOB:1960 (64 yo M)Acc No.[id number]:05/13/2023 UNLOCKED PROGRESS NOTE Patient: Pavel CRAFT Provider: Bryant Stanford, MSN, SUPERVISOR COAL HANDLING-BC, PMHNP-BC :1960 A ge:63 Y S ex:Male Date:05/13/2023 Address:[address] [place], [place] [address] [facility] Pcp:Luis Alberto Aparicio Subjective: * Chief Complaints: [...] * Treatment: * * Electronic signature of Charmiane Stanford , [id number] on 05/04/2024 at 01:41 AM CDT Sign off status: Pending * Provider: Bryant Stanford, MSN, SUPERVISOR COAL HANDLING-BC, PMHNP-BC Date: 05/13/2023 Generated for Liz correa/Karen/Marissa on: 05/04/2024 01:41 AM CDT
--- NOTE | 2024-05-04 04:35 | WPDHPUPDATE1 ---
History and Physical Update Update Date/Time: 05/04/24 04:35 History and Physical has been reviewed, including an updated exam of the patient. There are NO changes in the patient's condition. Risks, benefits, and alternatives have been discussed and questions answered. Patient agrees to proceed with procedure.
[2024-05-04] MEDS: ACETAMINOPHEN 500 MG TABLET 1000 MG PO (06:30)
[2024-05-04] MEDS: LACTATED RINGERS 1,000 ML 30 ML IV CONT ×2 (06:55→14:38)
[2024-05-04] MEDS: ALVIMOPAN 12 MG CAPSULE PO ×2 (07:02→20:45)
[2024-05-04] MEDS: KETOROLAC 15 MG/ML VIAL (*BKC) IV PUSH ×2 (07:03→13:40)
--- NOTE | 2024-05-04 07:25 | WPDANESEPPF ---
Anes - Initial Pre Proc Eval Procedure: Operation Date: 05/04/24 07:30 Proposed Procedures p Robotic Assisted Laparoscopic Sigmoid Colon Resection, Possible Open, - Pavel Maravilla MD s Bilateral Ureteral Stent Placement for Abdominal Surgery - Aravind Watters MD Date/Time: 05/04/24 07:25 Surgeon: Pavel Maravilla MD Pre Op Diagnosis: sigmoid mass Patient Data Age: 64 Gender: M Height: 1.76 m Weight: 79.2 kg Last Vital Signs Temp 98.6 F 05/04/24 05:55 Pulse 75 05/04/24 05:55 Resp 18 05/04/24 05:55 BP 158/68 H 05/04/24 05:55 Pulse Ox 100 05/04/24 05:55 O2 Del Method Room Air 05/04/24 05:55 Allergies Allergy/AdvReac Type Severity Reaction Status Date / Time codeine AdvReac Intermediate Nausea and Verified 05/04/24 06:51 Vomiting Home Medications ?Medication ?Instructions ?Recorded ?Confirmed ?Type meloxicam 15 mg tablet 15 mg PO DAILY 06/03/20 05/04/24 History memantine 10 mg tablet 10 mg PO QPM 12/26/22 05/04/24 History coenzyme Q10 400 mg capsule 400 mg PO DAILY 02/17/24 05/04/24 History pregabalin 75 mg capsule 75 mg PO BID 02/17/24 05/04/24 History rosuvastatin 10 mg tablet 10 mg PO DAILY #90 tabs 02/17/24 05/04/24 Rx trazodone 100 mg tablet 100 mg PO HS #90 tabs 03/19/24 05/04/24 Rx rtdmumid-nkfpyx-uwagk extract 5 4 cap PO DAILY 04/24/24 05/04/24 History mg-6 mg-150 mg capsule (Fruit and Vegetable Daily) turmeric 400 mg capsule 100 mg PO DAILY 04/24/24 05/04/24 History paroxetine HCl 40 mg tablet 40 mg PO DAILY #90 tabs 04/27/24 05/04/24 Rx Patient hx anesthesia problems: none Family hx anesthesia problems: none Results Review: All pre-operative results and documents have been reviewed as part of the pre-operative evaluation. 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 Type 2 diabetes mellitus Skin lesions Screening for prostate cancer Dementia Benign essential hypertension History of TIAs Hx of deep venous thrombosis Mixed hyperlipidemia Surgical History Surgical History History of ankle surgery H/O elbow surgery H/O shoulder surgery History of appendectomy Family History Family History Mother Family history of heart disease in male family member before age 55 Grandparent Family history of heart disease in male family member before age 55 Other Family history of dementia Hypertension Social History Social History Smoking packs per day: 1 Smoking cigarettes per day: 20.0 Years smoked: 50 Smoking pack-years: 50.00 Smoking status: Current every day smoker Tobacco type: e-cigarettes/vaping Additional smoking assessment comments: VAPES 10 TIMES/DAY CURRENTLY, CIGARETTES X40 YEARS Alcohol intake: never Substance use: current Substance use type: marijuana Other substance usage details: SMOKES MARIJUANA IN EVENING Last use: 03/31/2024 Do You Feel Safe in your Home?: Yes Lack of Transportation: No Lack of Food: Never True Current Housing: I Have Housing Concerned About Future Housing: No Difficulty Paying Gas/Electric Bills: No Difficulty Paying for Meds: No Currently Unemployed: Decline to Answer Education: Master's Degree or Higher Difficulty w/ Childcare or Family Care: No Living arrangements: with family Additional living arrangements comments: DAUGHTER AND GRANDSON Spiritual care concerns: No Anes - Eval Final PreProcedure Day of Procedure 05/04/24 07:25 Patient weight: normal Heart: regular rate and rhythm Lungs: clear to auscultation Airway: Mallampati scale class II Neurological: alert and oriented Last oral intake: >/= 8 hours ASA classification: III Emergent: no Anesthetic plan: proceed Anesthesia type and monitoring: general ETT and standard monitoring Results Review: All pre-operative results and documents have been reviewed as part of the pre-operative evaluation. Informed Consent: The patient's anesthetic plan and its attendant risks and benefits were discussed with the patient/family/POA. Questions were solicited and answers provided to the satisfaction of the patient/family/POA.
--- NOTE | 2024-05-04 07:28 | WPDHPUPDATE1 ---
History and Physical Update Update Date/Time: 05/04/24 07:28 History and Physical has been reviewed, including an updated exam of the patient. There are NO changes in the patient's condition. Risks, benefits, and alternatives have been discussed and questions answered. Patient agrees to proceed with procedure. Pt's procedure today is changed to robotic assisted laparoscopic sigmoid colon resection, possible open.
[2024-05-04] MEDS: ceFAZolin 2 GM/D5W 50 ML 2 GM/50 ML BAG IVPB (07:37)
[2024-05-04] MEDS: metroNIDAZOLE 500 MG/ISO 100ML 500 MG/100 ML BAG 100 MG IVPB (07:37)
[2024-05-04] MEDS: INDOCYANINE GREEN 25 MG VIAL WITH DILUENT 3.75 MG IV PUSH ×2 (08:15→11:45)
[2024-05-04] MEDS: LIDO 1%/EPINEPHRINE 1:100,000 50 ML VIAL 30 ML INFILTRATE (08:44)
[2024-05-04] MEDS: BUPivacaine HCL 0.5% 10 ML AMP 30 ML INFILTRATE (08:44)
--- NOTE | 2024-05-04 09:57 | P.OP_ITS ---
Procedure Note - Detailed Date of Procedure 05/04/24 Pre-op Diagnosis sigmoid mass Post-op Diagnosis Same Procedure Performed Cystoscopy, bilateral ureteral stent placement Surgeon Aravind Watters MD Anesthesia General Indications This is a gentleman undergoing sigmoid colectomy for a colon mass. I am asked t o place bilateral ureteral catheters to aid in ureteral identification Findings Uncomplicated placement of bilateral ureteral catheters Description of Procedure He was correctly identified. Informed consent obtained. From the operating room. He was given general anesthesia. He was placed in dorsal lithotomy position. He was prepped and draped sterile fashion. He was on appropriate antibiotics. Time-out performed. Cystoscopy revealed a normal appearing urethra and bladder. Minimally obstructing prostate. Ureteral orifices were normal. I placed bilateral ureteral catheters. I did this over a guidewire. There was no resistance to catheter placement. I then placed a Cheema catheter. I then placed ICG and ureteral stents as requested. The catheter and stents were secured together and the system was placed to gravity drainage. He was turned over to General surgery for the completion of his surgery Implants Bilateral ureteral catheters Estimated Blood Loss 1 Drains Yes (Bilateral ureteral catheter and Cheema catheter) Pathology None sent Complications No immediate complications Condition Stable
--- NOTE | 2024-05-04 12:31 | S_PTH ---
PATIENT: Pavel Davis LOC: [id number] U#:[id number] AGE/SX: 64/M ROOM: 257 RE05/04/[address]: Adore Cr APRN : 1960 BED: 01 DIS: 05/06/2024 SPEC #: [id number] RECD: 05/04/24 14:01 STATUS: NICKI PEDRO #: [id number] TARI: 05/04/24 12:[address]: Pavel Maravilla DEPT: [facility] RECD BY: Carrol Castano ENTERED: 05/04/24 14:02 SP TYPE: Surgical OTHR DR: Clau Felix APRN Tissues: A - Colon Segment Tumor Procedures: Hematoxylin and Eosin Stain Gross and Microscopic Level 6 MLH1 MSH2 MSH6 PMS2 CD 34
--- NOTE | 2024-05-04 16:36 | W.PM.PROC2 ---
Procedure Note - Detailed Date of Procedure 05/04/24 Pre-op Diagnosis Well differentiated invasive sigmoid adenocarcinoma Post-op Diagnosis Same Procedure Performed Robotic assisted laparoscopic sigmoidectomy with end-to-end EEA stapled colorectal anastomosis Surgeon Pavel Maravilla MD [employer] Counter Manager Joes Quiroz MD Anesthesia General Indications Patient is a 63-year-old gentleman who had a colonoscopy done a couple of weeks ago. He was found to have a sigmoid colon polyp which was biopsied and it showed a well-differentiated invasive sigmoid adenocarcinoma. He presents now for elective robotic assisted laparoscopic sigmoid colon resection with anastomosis. Findings The patient had minimal abdominal adhesions. The tattooing of the sigmoid colon proximal and distal to the tumor by the endoscopist was seen external on the serosa of the colon. There is no evidence of peritoneal studding. No direct extension of the tumor to the mesentery or pelvic sidewall was seen. The tumor was noted to be in the mid to distal sigmoid colon. Description of Procedure After informed consent was obtained patient brought to the operating room was placed supine position and general endotracheal anesthesia was administered. He was then placed in the lithotomy position on operating table. A Betadine irrigation of the colon was been performed. Dr. Watters from the urology service then came into the operating room and performed a cystoscopy and placement of bilateral ureteral stents and a Cheema catheter for pelvic surgery. He also injected ICG into the ureters bilaterally to visualize during the robotic surgery. Details of his procedure he found his procedure note. When Dr. Watters was finished the patient was then prepped and draped usual sterile fashion. A time-out was then performed correctly identifying the patient as well as procedure to be performed. He was given perioperative IV antibiotics. I then started by gaining entrance into the abdomen placing a 5mm Optiview port in left upper quadrant with a direct optical insertion. Once inside the abdomen insufflated to adequate pneumoperitoneum of 15mmHg of CO2. There was a clear view of the pelvis without any adhesions to obscure my view of the pelvis and the sigmoid colon. I then placed additional robotic trocar ports in the right lower quadrant, right upper quadrant, and epigastric region of the abdomen all under direct visualization. The 5mm laparoscopic trocar port was then switched to an 8mm robotic trocar port. The Purer Skin robot was then brought to the patient's bedside and then the robotic arms were docked to the robotic ports. Robotic instruments were then advanced into the abdomen under direct visualization. I then scrubbed out the procedure sent down the robotic console to perform the dissection robotically. I 1st started by having the patient placed in the head-down Trendelenburg position along the small bowel to fall out of the pelvis. There were couple of minor adhesions of the terminal ileum to the peritoneum which were mobilized with very careful robotic scissor dissection. Once this was done I then was able to retract the sigmoid colon up out of the pelvis to identify the tattooing on the sigmoid colon. There were 2 tattoos 1 proximal and 1 distal to the tumor. There was suggestion of a minor amount of puckering of the serosa but there was no extension of the tumor through the serosa into the adjacent mesentery or pelvic sidewall. I then used firefly on the robot and identified both ureters by visualization as the patient had ICG injected into both ureters. Again very easily see both ureters and these were protected during the dissection of the sigmoid colon throughout the rest the procedure without injury. I 1st started by holding the sigmoid colon up this midportion to tension on the mesentery the sigmoid colon. This then allowed me to identify the inferior mesenteric artery. I then proceeded to very carefully dissect out the inferior mesenteric artery a combination of robotic scissor and vessel sealer dissection. I dissected the artery all the way down to about 1 to 2 cm from its origin at the aorta. I then encircled the artery and then divided it with a vascular load to the robotic stapler. I then continued mobilize the sigmoid colon by dividing the lateral peritoneal attachments of the sigmoid colon to the left side. This was done with the vessel sealer. The patient had a redundant colon and there was no need to mobilize the splenic flexure. I then incised and mobilized the on the right side of the colon as well. I then held up the sigmoid colon and then divided the mesentery in the defect I made after I divided the inferior mesenteric artery distally. I divided the avoid colon mesentery all the way down to the rectal sigmoid junction. With traction on the sigmoid colon actually did dissected to the very proximal portion of the rectum posteriorly. I then incised the peritoneum circumferentially around the distal sigmoid colon and proximal rectum. This is done with robotic scissor cautery and the vessel sealer. Once I had skeletonized the mesentery and peritoneum all the way down to the wall of the bowel at the rectosigmoid junction I then proceeded to divide the sigmoid colon at the rectosigmoid junction. This is done with GI load to the robotic stapler. I then proceeded to remove the robotic instruments from the abdomen undocked the de Greg robot. I then scrubbed back into the procedure and then I made a small transverse skin incision in the suprapubic region and dissected down through the subcutaneous tissue electrocautery. I then made a vertical muscle-splitting incision in the midline to access the peritoneum and then opened the peritoneum vertically. I then placed a small Marc wound retractor into the abdomen. The sigmoid colon was then exteriorized and the tumor was palpated. I grossly had about 3cm of distal gross negative margin at the staple line of the rectal sigmoid junction. Proximally I then measured off 5cm from the proximal margin of the tumor grossly I then made a defect through the mesentery this point electrocautery and then divided the sigmoid colon proximally with a VU 75 stapler. Small portion of mesentery was then divided between clamps and tied off with 2-0 Vicryl sutures. The specimen was then marked with a suture at the distal staple line and was sent to pathology for examination. I then used a auto-suture pursestring device to place a pursestring suture on the descending end of the colon. The staple line was then resected utilizing a scalpel and then I placed sizers to dilate the end of the colon. Would seem to fit the most appropriately was a 29 EEA Sizer. We had a 28 EEA stapler in the room and so this was used for the anastomosis. The anvil to the 28 EEA stapler was then placed into the end of the colon and then the suture on the auto pursestring device was then tied down around the anvil. The end of the descending colon abdomen was then reduced back into the abdomen. I then closed off the Marc wound retractor and reach Esme pneumoperitoneum. The de Greg robot was then read docked to the patient's bedside and robotic instruments were then advanced back into the abdomen. I then scrubbed out the procedure sat back down at the robotic console. Dr. Jose Chino then came into the operating assisted with performing the end-to-end stapled EEA colorectal anastomosis. He then placed sizers through the rectal stump to dilate the rectal stump. He then used the 28 EEA Mario stapler placed it into the rectal stump. The spear was then advanced at the center portion of the staple line just below it on the rectal stump. The anvil was then engaged to the spear making sure that the mesentery was not twisted. Once the anvil and superior were totally engaged Dr. Quiroz then fired the stapler creating a stapled end-to-end EEA anastomosis. He then removed the stapler from the rectum. Two complete tissue donuts were then obtained after the stapler was removed from the rectum. He then performed a rigid endoscopic examination of the staple line which was completely intact. A proctoscope was placed distal to the staple line and then I occluded the sigmoid with a laparoscopic grasper. Saline solution was then instilled into the pelvis into the anastomosis was completely under fluid. Dr. Quiroz then insufflated the rectum and there was no air bubbles leaking from the end staple line. The patient had a negative leak test. At this point I then aspirated the fluid from the pelvis. There was a very small amount of bleeding from the cut edge of the mesentery to the sigmoid colon. This was treated electrocautery. I then placed some granulated Surgicel in this area for topical hemostatic agent. I then proceeded to remove the robotic instruments from the abdomen and the de Greg robot was undocked from the patient's bedside. I then scrubbed back into the procedure and then proceeded to close the 12mm right lower quadrant trocar port defect utilizing 0 Vicryl suture at the fascial level. The remaining 8mm robot trocar ports were not closed at the fascial level. The Marc wound retractor was removed from the suprapubic midline incision. I then irrigated all the incisions sterile saline solution hemostasis was good. I then closed the small Pfannenstiel extraction site incision utilizing a nonlooped 0 PDS suture started at each end incision and then run to the middle and the 2 sutures were then tied together. Midline fascial defect was closed without any tension. All the incisions were then closed at the skin level utilizing a running subcuticular 4-0 Monocryl suture. Incisions were then cleaned and then skin glue was applied. The patient tolerated the procedure well no complications. All sponges, needles, and instrument counts were correct at the end procedure. EBL was _75__cc. The patient was awakened and taken to recovery in stable and satisfactory condition. At the end the procedure the Cheema catheter was removed. Bilateral ureteral stents were also removed intact. The orogastric tube was removed as well. Implants None Estimated Blood Loss 75 Drains No Packing No Pathology Yes (Sigmoid colon and tumor sent to pathology) Complications No immediate complications Condition Stable Disposition PACU [facility] Billing Surgery - Charge Forward: Surgery Billing
[2024-05-04] MEDS: MEMANTINE 10 MG TABLET PO (17:51)
[2024-05-04] MEDS: ceFAZolin 1 GM/NS 50 ML 1 GM/50 ML BAG IVPB (17:51)
[2024-05-04] MEDS: LACTATED RINGERS 1,000 ML 80 ML IV CONT (17:51)
[2024-05-04] MEDS: PREGABALIN (*CRX) 75 MG CAPSULE PO (17:51)
[2024-05-04] MEDS: traZODone HCL 50 MG TABLET 100 MG PO (20:45)
[2024-05-04] MEDS: IBUPROFEN IV 800 MG/200 ML 800 MG/200 ML BAG 400 MG IVPB (20:46)
[2024-05-05 04:15] VITALS: BP 134/71; PULSE 64; RESP 20; TEMP 36.6; O2SAT 94
[2024-05-05] MEDS: IBUPROFEN IV 800 MG/200 ML 800 MG/200 ML BAG 400 MG IVPB ×3 (05:15→21:03)
[2024-05-05] MEDS: ceFAZolin 1 GM/NS 50 ML 1 GM/50 ML BAG IVPB ×2 (06:38)
[2024-05-05] MEDS: PARoxetine 20 MG TABLET 40 MG PO (08:34)
[2024-05-05] MEDS: LACTATED RINGERS 1,000 ML 80 ML IV CONT (08:35)
[2024-05-05] MEDS: ALVIMOPAN 12 MG CAPSULE PO ×2 (08:35→21:01)
[2024-05-05] MEDS: PREGABALIN (*CRX) 75 MG CAPSULE PO ×2 (08:35→17:23)
[2024-05-05] MEDS: PANTOPRAZOLE 40 MG TABLET PO (08:35)
[2024-05-05] MEDS: ROSUVASTATIN 10 MG TABLET PO (08:35)
[2024-05-05 08:41] LABS: Hematocrit 33.4 % (42.0-52.0); Hemoglobin 10.8 g/dL (14.0-18.0); Immature Platelet Fraction Pct 6.5 % (0.9-11.2); Mean Corpuscular HGB Conc 32.3 g/dl (32-36); Mean Platelet Volume 11.1 fl (7.4-10.4); Platelet Count Result 125 k/mm3 (150-375); Red Blood Count 3.48 M/mm3 (4.6-6.20); White Blood Count 8.3 K/mm3 (4.5-10.0)
[2024-05-05 08:42] VITALS: BP 140/56; PULSE 79; RESP 18; TEMP 36.9; O2SAT 96
[2024-05-05 08:55] LABS: Alanine Aminotransferase 13 U/L (6-50); Alkaline Phosphatase 106 U/L (38-126); Anion Gap 5 mmol/L (4-12); Aspartate Amino Transferase 16 U/L (17-59); Bilirubin,Total 0.3 mg/dL (0.2-1.3); Blood Urea Nitrogen 9 mg/dL (9-20); Calcium 8.2 mg/dL (8.4-10.2); Carbon Dioxide 28 mmol/L (22-30); Chloride 108 mmol/L (98-107); Estimated CRCL calculation 75 ml/min; Estimated Glomerular Filt Rate > 60; Glucose 126 mg/dL (65-110); Sodium 141 mmol/L (137-145)
--- NOTE | 2024-05-05 09:26 | WPDANESPN ---
Anes - Prog Note Post-Op Date/Time: 05/05/24 09:26 Cardiovascular status: normal Respiratory status: normal Airway patency: baseline Mental status: baseline Vital Signs: Last Vital Signs Temp 36.6 C 05/05/24 04:15 Pulse 64 05/05/24 04:15 Resp 20 05/05/24 04:15 BP 134/71 05/05/24 04:15 Pulse Ox 94 05/05/24 04:15 O2 Del Method Room Air 05/04/24 20:00 O2 Flow Rate 2 05/04/24 16:35 Pain Score (VAS): 4 I/O: Intake & Output 05/04/24 05/05/24 05/05/24 23:59 07:59 15:59 Intake Total 810 1440 Output Total 725 200 Balance 85 1240 Laboratory Tests 05/05/24 08:31 05/05/24 08:31 05/05/24 08:31 WBC 8.3 RBC 3.48 L Hgb 10.8 L Hct 33.4 L MCV 96.0 MCH 31.0 MCHC 32.3 RDW 12.0 Plt Count 125 L MPV 11.1 H % Immature Plt Fraction 6.5 Sodium 141 Potassium 4.0 Chloride 108 H Carbon Dioxide 28 Anion Gap 5 BUN 9 Creatinine 0.85 Estim Creat Clear Calc 75 Estimated GFR > 60 Glucose 126 H Calcium 8.2 L Total Bilirubin 0.3 AST 16 L ALT 13 Alkaline Phosphatase 106 Total Protein 6.0 L Albumin 3.0 L Patient Feedback: Patient satisfied with anesthetic care.
[2024-05-05 12:15] VITALS: BMI 25.6
--- NOTE | 2024-05-05 12:34 | WPDPN ---
Progress Note: A&P Assessment and Plan (1) Cancer of sigmoid colon: Code(s): C18.7 - Malignant neoplasm of sigmoid colon Status: Acute Assessment and Plan: Postop day 1 after robotic assisted laparoscopic sigmoid colon resection with stapled colorectal EEA anastomosis. His doing very well today. No nausea. Abdominal pain is minimal. He is on scheduled doses IV ibuprofen. He is up ambulating in the room. Urinating okay. White blood count is normal. Electrolytes are normal. Tolerating clear liquids today. We will go ahead advanced to full liquids for lunch and maybe even low residual diet for dinner. Continue supportive management. Subjective Date/time seen: 05/05/24 12:34 Interval history: Patient doing very well today. States he really has very little to no pain. He is postop day 1 after robotic assisted laparoscopic sigmoid colon resection with stapled EEA colorectal anastomosis for colon cancer. He has not passed any flatus or had a bowel movement yet but he is tolerating clear liquids this morning without any problems. He is up ambulating in the room without difficulty. Vital signs are stable and white blood count is normal. No fever. Exam GI: Other: Abdomen is soft and nondistended. Port site incisions are healing well. Extraction site incision is healing well as well. No redness or drainage. Objective Data Vital Signs Vital Signs: Vital Signs - 24 hr 05/04/24 14:20 05/04/24 14:35 05/04/24 14:50 Temperature 36.8 C Pulse Rate 82 82 79 Respiratory Rate 12 8 L 8 L Blood Pressure 139/64 132/65 126/83 Pulse Oximetry 100 100 100 Oxygen Delivery Simple Face Mask Simple Face Mask Simple Face Mask Oxygen Flow Rate 8 8 8 05/04/24 15:05 05/04/24 15:20 05/04/24 15:35 Temperature Pulse Rate 77 75 85 Respiratory Rate 7 L 8 L 20 Blood Pressure 130/65 131/66 140/72 Pulse Oximetry 100 100 100 Oxygen Delivery Simple Face Mask Simple Face Mask Simple Face Mask Oxygen Flow Rate 8 8 8 05/04/24 15:50 05/04/24 16:05 05/04/24 16:20 Temperature Pulse Rate 85 95 93 Respiratory Rate 14 10 L 17 Blood Pressure 139/79 158/88 H 144/81 H Pulse Oximetry 95 99 97 Oxygen Delivery Nasal Cannula Nasal Cannula Nasal Cannula Oxygen Flow Rate 2 2 2 05/04/24 16:35 05/04/24 16:55 05/04/24 17:25 Temperature 35.8 C L 36.1 C L Pulse Rate 93 86 79 Respiratory Rate 22 H 20 20 Blood Pressure 156/81 H 144/76 H 137/69 Pulse Oximetry 97 100 100 Oxygen Delivery Nasal Cannula Oxygen Flow Rate 2 05/04/24 18:25 05/04/24 20:00 05/04/24 20:39 Temperature 35.9 C L 36.6 C Pulse Rate 81 70 70 Respiratory Rate 20 20 20 Blood Pressure 147/74 H 152/73 H Pulse Oximetry 100 100 100 Oxygen Delivery Room Air Oxygen Flow Rate 05/05/24 04:15 05/05/24 08:35 05/05/24 08:42 Temperature 36.6 C 36.9 C Pulse Rate 64 79 Respiratory Rate 20 18 Blood Pressure 134/71 140/56 L Pulse Oximetry 94 96 Oxygen Delivery Room Air Oxygen Flow Rate Intake/Output Intake/Output: Intake & Output 05/02/24 05/04/24 05/04/24 05/05/24 23:59 00:59 23:59 23:59 Intake Total 960 1860 Output Total 725 200 Balance 235 1660 Meds/Results Medications: Active Medications Generic Name Dose Route Start Last Admin Trade Name Freq PRN Reason Stop Dose Admin Acetaminophen 1,000 mg 05/04/24 16:38 Acetaminophen 500 Mg Tablet PO Q6H PRN Mild Pain (1-3) or Fever Hydrocodone Bitart/Acetaminophen 1 tab 05/04/24 16:38 Hydrocodone/Acetaminophen (*Crx) 5-325 Mg Tablet PO Q4H PRN Pain Rated 4-6 Alvimopan 12 mg 05/04/24 21:00 05/05/24 08:35 Alvimopan 12 Mg Capsule PO 05/05/24 21:01 12 mg Q12HR STEPH Administration Fentanyl Citrate 25 mcg 05/04/24 07:26 Fentanyl Citrate Inj (*Crx) 100 Mcg/2 Ml Vial IV PUSH Q2M PRN Pain Lactated Ringer's 1,000 mls @ 30 mls/hr 05/04/24 07:30 05/04/24 14:20 Lr - Lactated Ringers Iv IV CONT Infused .Q24H STEPH Infusion Lactated Ringer's 1,000 mls @ 30 mls/hr 05/04/24 07:30 05/04/24 16:03 Lr - Lactated Ringers Iv IV CONT Infused .Q24H STEPH Infusion Ibuprofen 800 mg in 200 mls @ 400 mls/hr 05/04/24 20:00 05/05/24 05:15 Caldolor 800 Mg/200 Ml IVPB 400 mls/hr Q8HR STEPH Administration Memantine 10 mg 05/04/24 18:00 05/04/24 17:51 Memantine 10 Mg Tablet PO 10 mg QPM STEPH Administration Ondansetron HCl 4 mg 05/04/24 07:26 Ondansetron Inj 4 Mg/2 Ml Vial IV PUSH ONCE PRN Nausea Ondansetron HCl 4 mg 05/04/24 16:38 Ondansetron Inj 4 Mg/2 Ml Vial IV PUSH Q6H PRN Nausea And Vomiting Oxycodone HCl 5 mg 05/04/24 16:38 Oxycodone Hcl (*Crx) 5 Mg Tab Ir PO Q6H PRN Pain Rated 7-10 Pantoprazole Sodium 40 mg 05/05/24 09:00 05/05/24 08:35 Pantoprazole 40 Mg Tablet PO 40 mg QAM STEPH Administration Paroxetine HCl 40 mg 05/05/24 09:00 05/05/24 08:34 Paroxetine 20 Mg Tablet PO 40 mg DAILY STEPH Administration Pregabalin 75 mg 05/04/24 17:00 05/05/24 08:35 Pregabalin (*Crx) 75 Mg Capsule PO 75 mg BID STEPH Administration Rosuvastatin Calcium 10 mg 05/05/24 09:00 05/05/24 08:35 Rosuvastatin 10 Mg Tablet PO 10 mg DAILY STEPH Administration Trazodone HCl 100 mg 05/04/24 21:00 05/04/24 20:45 Trazodone Hcl 50 Mg Tablet PO 100 mg HS STEPH Administration Labs Labs: Laboratory Results - last 24 hr 05/05/24 08:31 WBC 8.3 RBC 3.48 L Hgb 10.8 L Hct 33.4 L MCV 96.0 MCH 31.0 MCHC 32.3 RDW 12.0 Plt Count 125 L MPV 11.1 H % Immature Plt Fraction 6.5 Sodium 141 Potassium 4.0 Chloride 108 H Carbon Dioxide 28 Anion Gap 5 BUN 9 Creatinine 0.85 Estim Creat Clear Calc 75 Estimated GFR > 60 Glucose 126 H Calcium 8.2 L Total Bilirubin 0.3 AST 16 L ALT 13 Alkaline Phosphatase 106 Total Protein 6.0 L Albumin 3.0 L
[2024-05-05 14:00] VITALS: BP 137/57; PULSE 87; RESP 18; TEMP 36.6; O2SAT 94
[2024-05-05] MEDS: MEMANTINE 10 MG TABLET PO (17:23)
[2024-05-05 20:38] VITALS: BP 157/69; PULSE 71; RESP 18; TEMP 37.2; O2SAT 96
[2024-05-05] MEDS: traZODone HCL 50 MG TABLET 100 MG PO (21:01)
[2024-05-06 04:18] VITALS: BP 147/64; PULSE 64; RESP 20; TEMP 36.7; O2SAT 100
[2024-05-06] MEDS: IBUPROFEN IV 800 MG/200 ML 800 MG/200 ML BAG 400 MG IVPB (06:35)
--- NOTE | 2024-05-06 09:05 | P.CDI_ITS ---
<Statement entered by Adore Cr, ANAT - 05/06/24 16:14> I agree with severe protein calorie malnutrition for this patient. CDI Query Clarification Request BMI: 25.6 Nutritional Diagnostic Statement: Please refer to the comprehensive nutrition assessment for further information. If you agree with diagnosis of Severe Protein Calorie Malnutrition as related to inadequate protein-energy intake with increased protein energy needs in setting of chronic disease(colon mass) as evidenced by minimal oral intake for > 1-2 months; significant weight loss of 26% (60 ib) 1 year; moderate subcutaneous fat loss (orbital fat pads) and moderate muscle wasting (temporalis). Please specify severity if known: * Mild * Moderate * Severe * Other/Unknown
[2024-05-06] MEDS: PARoxetine 20 MG TABLET 40 MG PO (09:06)
[2024-05-06] MEDS: PANTOPRAZOLE 40 MG TABLET PO (09:06)
[2024-05-06] MEDS: ROSUVASTATIN 10 MG TABLET PO (09:06)
[2024-05-06] MEDS: PREGABALIN (*CRX) 75 MG CAPSULE PO (09:07)
--- NOTE | 2024-05-06 09:29 | P.DS_ITS ---
DS: Admitting Diagnosis Discharge Date 05/06/2024 Admitting Diagnosis Well-differentiated invasive sigmoid adenocarcinoma DS: Discharge Diagnosis Discharge Diagnosis (1) Cancer of sigmoid colon: Code(s): C18.7 - Malignant neoplasm of sigmoid colon Status: Acute DS: Summary Hospital Course Reason for hospitalization: Patient is a 63-year-old gentleman who had a colonoscopy done a couple of weeks ago. He was found to have a sigmoid colon polyp which was biopsied and showed a well-differentiated invasive sigmoid adenocarcinoma. He presents now for elective robotic assisted laparoscopic sigmoid colon resection with anastomosis. Hospital Course: The patient underwent robotic assisted laparoscopic sigmoidectomy with end-to-end EEA stapled colorectal anastomosis by Dr. Maravilla on 05/04/24. Surgery was straightforward. His diet was advanced postoperatively as tolerated. Bowel function returned postop day 1. Routine labs following surgery were unremarkable. He had very minimal postoperative pain that was controlled with Tylenol and IV ibuprofen. By postop day 2, he was tolerating activity and a low-fiber diet. Bowels are moving. He was urinating well. He is stable for discharge with follow-up in 2 weeks. Pathology pending on discharge and will be discussed as an outpatient. Status at Discharge Functional status at discharge: independent ambulation Overall status at discharge: patient is progressing back to baseline Time Spent with Patient Time attestation: Total time spent providing and/or coordinating discharge services: Exam Const: General: comfortable and no acute distress Resp: Effort & Inspection: normal respiratory effort Auscultation: clear to auscultation bilaterally Cardio: Rate: regular rate Rhythm: regular rhythm GI: Inspection: non-distended and incision (incisions dry and intact) GI Palp: Yes Soft to palpation, Yes Tenderness to palpation present (GI) (incisional) and No Guarding due to palpation present (GI) Auscultation: normal bowel sounds Neuro: General: moves all extremities and no focal motor deficits Extrem: General: no calf tenderness and no edema Psych: Mental Status: mental status grossly normal Insight: Good insight present (Psych) DS: Data Data Completed and Pending Pending studies at discharge: Pending at discharge 05/04/24 12:31 Surgical [PTH] Routine Discharge Plan Discharge Attending physician on discharge: Pavel Maravilla Discharging Clinician: Sergey Jaramillo Anticipated Discharge Date/Time: 05/06/24 09:29 Patient Disposition: Home, Self-Care Activity: may shower, no driving and other - see discharge instructions Diet: as tolerated and low fiber Wound Care Instructions: incision open to air Discharge Instructions: Surgery discharge instruction: * Follow up with Dr. Maravilla as scheduled on 05/19/24 at 9:15 am. Call sooner with any questions or concerns. * Walk at least 3 times daily. Stairs are okay. * No lifting more than 10-15 lbs x 4 weeks * You may wash over your incisions daily with soap and water, pat dry. Do not submerge in water/bath x 2 weeks. * No driving x 1 week * Low fiber diet x 2-3 weeks Patient Instructions: Antibiotic Form Patient Language: Mohawk Stand Alone Forms: General Discharge Information Follow-up/Referrals: Pavel Maravilla MD [Physician] - Keep Reg. Scheduled Appt. Discharge Medications: Continued memantine 10 mg tablet 10 mg PO QPM meloxicam 15 mg tablet 15 mg PO DAILY pregabalin 75 mg capsule 75 mg PO BID coenzyme Q10 400 mg capsule 400 mg PO DAILY Patient Comments: Patient states doesnt know rosuvastatin 10 mg tablet 10 mg PO DAILY Qty: 90 3RF Fruit and Vegetable Daily 5-6-150 mg capsule 4 cap PO DAILY turmeric 400 mg capsule 400 mg PO BID trazodone 100 mg tablet 100 mg PO HS Qty: 90 3RF paroxetine HCl 40 mg tablet 40 mg PO DAILY Qty: 90 3RF Patient Comments: QAM Date of admission: 05/04/24 07:05 Primary Care Provider: Clau Felix Admitting Provider: Pavel Maravilla Attending physician on admission: Pavel Maravilla Condition: Stable Quality VTE Prophylaxis VTE prophylaxis: mechanical ordered
== END 2024-05-06 11:00 | disposition home or self-care (01) | DRG 331 ==
LOC: ANH2MED 05-05 09:33 → ANHSURGERY 05-05 09:34 → ANH2MED 05-05 09:34
PROVIDERS: Urology; Admitting Provider Surgery; PCP Nurse Practitioner Family; Visit Provider Nurse Practitioner Family
PROC: 0DTN4ZZ Resection of Sigmoid Colon, Percutaneous Endoscopic Approach (ICD-10-PCS; principal; 2024-05-04 07:30)
DX: C18.7 Malignant neoplasm of sigmoid colon (principal); E11.9 Type 2 diabetes mellitus without complications; E78.2 Mixed hyperlipidemia; F41.9 Anxiety disorder, unspecified; F17.210 Nicotine dependence, cigarettes, uncomplicated; Z86.73 Personal history of transient ischemic attack (TIA), and cerebral infarction without residual deficits; Z86.718 Personal history of other venous thrombosis and embolism
CPT/HCPCS: 36415; 80053; 85027; 85055; 88309; 88342; A9270; C1729; C1758; C1769; J0690; J1100; J1171; J1741; J1836; J1885; J2003; J2004; J2250; J2371; J2405; J3010; J7030; J7120

== ENCOUNTER 2024-05-26 11:12 | Outpatient (CLI) | payer MEDICARE, SELFPAY ==
[2024-05-26 11:27] LABS: Basophils Absolute Auto 0.1 K/mm3 (0.0-0.1); Basophils Percent Auto 0.9 % (0.2-1.2); Eosinophils Absolute Auto 0.1 K/mm3 (0-0.3); Eosinophils Percent Auto 1.9 % (0-4.4); Hematocrit 36.2 % (42.0-52.0); Immature Granulocyte Absolute 0.01 K/mm3 (0.00-0.031); Immature Granulocyte Percent A 0.2 % (0-0.5); Lymphocytes Absolute Auto 0.72 K/mm3 (0.9-3.2); Lymphocytes Percent Auto 12.4 % (18.3-44.2); Mean Corpuscular HGB Conc 33.1 g/dl (32-36); Mean Corpuscular Hemoglobin 31.3 pg (26-34); Mean Corpuscular Volume 94.5 fl (80-100); Mean Platelet Volume 11.6 fl (7.4-10.4); Monocytes Absolute Auto 0.3 K/mm3 (0.1-0.6); Monocytes Percent Auto 5.3 % (2.6-8.5); Neutrophils Absolute Auto 4.6 K/mm3 (1.3-6.7); Neutrophils Percent Auto 79.3 % (45.5-73.1); Platelet Count Result 150 k/mm3 (150-375); Red Blood Count 3.83 M/mm3 (4.6-6.20); Red Cell Distribution Width 12.7 % (11.5-14.5); White Blood Count 5.8 K/mm3 (4.5-10.0)
--- OUTSIDE RECORDS SUMMARY | 2024-05-26 12:31 | XMS_ITS | Encounter Summary ---
Author Organization [facility] Address [address] [place] [address] Care Team Providers Care Tc Operator Name Role Phone Unavailable Primary Care Provider Unavailabl e Reason for Referral * Eval and Treat (Routine) - Open Specialty Diagnoses / Procedures Referred By Alison landis Referred To Contact Surgery Diagnoses Malignant neoplasm of colon, unspecified part of colon (CMS/HCC) Procedures DE OFFICE/OUTPATIENT ESTABLISHED MOD MDM 30 MIN DE OFFICE/OUTPATIENT NEW MODERATE MDM 45 MINUTES Pool Orellana MD [facility] [employer] [address] [place] [phone] Phone: tel: fax: Sergey Jaramillo, DO [address] [facility] [address] [place] [address] Phone: tel: fax: Referral ID Status Reason Start Date Expiration Date V isits Requested Visits Authorized [id number] Open CRS To Schedule (STL) 05/26/2024 05/26/2025 1 1 * Eval and Treat (Routine) - Open Specialty Diagnoses / Procedures Referred By Alison t Referred To Contact Oncology Diagnoses Malignant neoplasm of colon, unspecified part of colon (CMS/HCC) Procedures DE OFFICE/OUTPATIENT ESTABLISHED MOD MDM 30 MIN DE OFFICE/OUTPATIENT NEW MODERATE MDM 45 MINUTES Pool Orellana MD [address] [employer] [address] [place] [phone] Phone: tel: fax: Referral ID Status Reason Start Date Expiration Date Visits Re quested Visits Authorized [id number] Open 05/26/2024 05/27/2025 1 1 Reason for Visit * Reason Comments Establish Care Cancer Encounter Details Date Type Department Care Team (Late st Contact Info) Description 05/26/2024 10:30 AM CDT Office Visit [facility] Oncology and Hematology - [place] [address] [facility] [address] [place] [address] Pool Orellana MD [address] [facility] [address] [place] [address] Malignant neoplasm of colon, unspecified part of colon (CMS/HCC) (Primary Dx); Anemia, chronic disease Social History Tobacco Use Types Packs/Day Years Used Date Smoking Tobacco: Never Smokeless Tobacco: Never Alcohol Use Standard Drinks/Week Comments Never 0 (1 standard drink = 0.6 oz pur e alcohol) Sex and Gender Information Value Date Recorded Sex Assigned at Not on file 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 Gender Identity Not on file Sexual Orientation Not on file documented as of this encounter Last Filed Vital Signs Vital Sign Reading Time Taken Comments Blood Pressure 122/71 05/26/2024 10:31 AM CDT Pulse 54 05/26/2024 10:31 AM CDT Temperature 36.2 C (97.1 F) 05/26/2024 10:31 AM CDT Respiratory Rate 15 05/26/2024 10:31 AM CDT Oxygen Saturation 98% 05/26/2024 10:31 AM CDT Inhaled Oxygen Concentration - - Weight 80.8 kg (178 lb 3.2 oz) 05/26/2024 10:31 AM CDT Height 177.8 cm (5' 10 ) 05/26/2024 10:31 AM CDT Body Mass Index 25.57 05/26/2024 10:31 AM CDT documented in this encounter Progress Notes * Pool Orellana MD - 05/26/2024 11:15 AM CDT Hematology-oncology consult Note Requesting Physician Pavel Maravilla MD Primary Care Physician No primary care provider on file. Problem list There is no problem list on file for this patient. Previous TREATMENT ? Measurable Disease ? Reason for Visit Pavel Davis is a 64 y.o. male who was referred for consultation for colon cancer. History of present illness This is a pleasant 64-year-old male had surveillance colonoscopy done on April 15, 2024 due to positive Cologuard test on April 15, 2024 showed malignant appearing colon mass at sigmoid colon. Patient had laparoscopic sigmoidectomy done on May 04, 2024. He denies any bleeding including melena hematochezia. His bowel habit has changed since her surgery. He has lost 55 pound weight unintentionally last [address] duration. Patient had CT scan abdomen and pelvis done on April 21 showed no evidence of metastatic disease. Pathology showed T3 N0 colon cancer with all 9 lymph node negative for malignancy. He denies any other new complaints. Past Medical History Past Medical History: Diagnosis Date Dementia (CMS/HCC) Heart disease Hx of blood clots Malignant neoplasm (CMS/HCC) Surgical History Past Surgical History: Procedure Laterality Date HX ANKLE SURGERY Right 1999 HX APPENDECTOMY 1974 HX ELBOW SURGERY Left shattered elbow 2009 HX SHOULDER SURGERY Right R Bicep torn in shoulder, 1999 Medications Current Outpatient Medications Medication Sig Dispense Refill meloxicam (MOBIC) 15 mg tablet Take 15 mg by mouth daily. PARoxetine HCl (PAXIL) 40 mg tablet Take 1 Tablet by mouth daily. pregabalin (LYRICA) 75 mg Capsule Take 75 mg by mouth 2 times daily. traZODone (DESYREL) 100 mg tablet Take 100 mg by mouth daily at bedtime. memantine (NAMENDA) 10 mg Tablet Take 10 mg by mouth 2 times daily. rosuvastatin (CRESTOR) 10 mg tablet Take 10 mg by mouth daily. No current facility-administered medications for this visit. Allergies Allergies Allergen Reactions Codeine Nausea and Vomiting Immunizations: There is no immunization history on file for this patient. Family History Family History Problem Relation Name Age of Onset No Known Problems Father No Known Problems Mother No Known Problems Brother No Known Problems Sister No Known Problems Sister No Known Problems Child No Known Problems Child No Known Problems Child Social History Social History Tobacco Use Smoking status: Never Smokeless tobacco: Never Substance Use Topics Alcohol use: Never Review of Systems Constitutional: Patient did not mention fever; no night sweats; no anorexia; no weight loss; no fatique NEENT: Patient did not mention headache; no change in vision; no change in hearing; no sore throat;no dysphagia Respiratory: Patient did not mention shortness of breath; no pleuritic chest pain; no cough; no hemoptysis Cardiac: Patient did not mention cardiac-like chest pain; no palpitations; no orthopnea; no PND; noDOE GI: Patient did not mention abdominal pain; no nausea; no vomiting; no diarrhea; no hematochezia; no melena : Patient did not mention dysuria; no frequency; no hesitancy; no hematuria TRANSMISSION SYSTEM OPERATOR: Musculosketetal: Patient did not mention bone pain; no arthralgia; no joint swelling; no myalgia; Skin: Patient did not mention pruritis; no rash; no petechiae; no ecchymoses Endocrine: Patient did not mention polydipsia; no polyuria; no unusual weight gain Neuro: Patient did not mention headache; no change in vision; no sensory changes; no muscle weakness; no confusion; no seizures Psych: Patient did not mention anxiety; no depression; Physical Exam Vitals: As per nursing note Constitutional: Well developed, well nourished, no acute distress, non-toxic appearance Teeth and gum. No signs of infection or swelling. Eyes: PERRL, conjunctiva normal HEENT: Atraumatic, external ears normal, nose normal, oropharynx moist, no pharyngeal exudates. no sinus tenderness Neck- normal range of motion, no tenderness, supple Respiratory: No respiratory distress, normal breath sounds, no rales, no wheezing Cardiovascular: Normal rate, normal rhythm, no murmurs, no gallops, no rubs GI: Soft, nondistended, normal bowel sounds, nontender, no splenomegaly, no hepatomegaly, no mass, no rebound, no guarding : No costovertebral angle tenderness Musculoskeletal: No edema, no tenderness, no deformities. Back- no tenderness Integument: Well hydrated, no rash, Digits and nails inspection normal Lymphatic: No lymphadenopathy noted Neurologic: Alert & oriented x 3, CN 2-12 normal, normal motor function, normal sensory function, no focal deficits noted Psychiatric: Speech and behavior appropriate ? labs No results found for this or any previous visit (from the past 24 hours). Labs from May 05 showed WBC 8.3 hemoglobin 10.8 platelet 125,000 creatinine 0.8 total bilirubin 0.3 Pathology ? Imaging & Other Studies Performance Status? ECOG performance status 0 Assessment / Plan: ? T3 N0 M0 stage II well-differentiated grade 1 adenocarcinoma of sigmoid colon status post laparoscopic sigmoidectomy done on May 04, 2024. Low probability of MSI high. Pathology also showed lymphovascular invasion present with 9 lymph node negative for malignancy. I have discussed the staging andmanagement of his stage II high risk colon cancer in detail. He will be considered high risk due tolymphovascular invasion present and less than 12 lymph nodes examined. I would recommend adjuvant chemotherapy with FOLFOX regimen for 3 months duration due to stage II disease as well as existing peripheral neuropathy for which she has been taking Lyrica. I will order baseline labs today that willinclude CBC, CMP, CEA and iron studies. He will be referred for Mediport placement and chemotherapyteaching. I have answered all the questions the patient and the family satisfaction. I will see himback in 4 weeks with cycle #2 of chemotherapy. Peripheral neuropathy. He is on Lyrica. Hyperlipidemia. He is on Crestor. Depression/anxiety. Patient is on Paxil and trazodone. Dementia. He is on Namenda. Thank you very much for allowing me to participate in Pavel Ryan's evaluation and management. Please feel free to contact if I can be of any further assistance in your patient???s care requiring hematology or oncology evaluation. Sincerely, ? ? Pool Orellana M.D. cell TOBACCO COUNSELING He is not a tobacco/nicotine user. Pool Orellana MD ,05/26/2024 11:15 AM ? Total time spent 60 minutes, two third of the total time spent counseling patient [id number]. CC:? Pavel Maravilla MD documented in this encounter Plan of Treatment Scheduled Orders Name Type Priority Associated Diagnoses Orde r Schedule CBC WITH DIFFERENTIAL Lab Stat Anemia, chronic disease Expected: 05/26/2024, Expires: 05/26/2025 COMPREHENSIVE METABOLIC PANEL Lab Stat Anemia, chronic disease Expected: 05/26/2024, Expires: 05/26/2025 FERRITIN Lab Routine Anemia, chronic disease Expected: 05/26/2024, Expires: 05/26/2025 IRON, TIBC, AND PERCENT SATURATION Lab Routine Anemia, chronic disease Expected: 05/26/2024, Expires: 05/26/2025 CEA Lab Routine Malignant neoplasm of colon, unspecified part of colon (CMS/HCC) Expected: 05/26/2024, Expires: 05/26/2025 Scheduled Referrals Name Type Priority Associated Diagnoses Orde r Schedule AMB REFERRAL TO CHEMO TEACHING Outpatient Referral Routine Malignant neoplasm of colon, unspecified part of colon (CMS/HCC) Ordered: 05/26/2024 AMB REFERRAL TO COLORECTAL SURGERY Outpatient Referral Routine Malignant neoplasm of colon, unspecified part of colon (CMS/HCC) Ordered: 05/26/2024 documented as of this encounter Visit Diagnoses Diagnosis Malignant neoplasm of colon, unspecified part of colon (CMS/HCC)- Primary Anemia, chronic disease Anemia of other chronic disease documented in this encounter
--- OUTSIDE RECORDS SUMMARY | 2024-05-26 12:31 | XMS_ITS | Clinical Summary ---
Author Organization [facility] Address [facility] [place] [address] Care Team Providers Care Product Control And Logistics Analyst Name Role Phone None, Provider MD Primary [...] Medicare Wellness Visit 2023 COVID-19 Vaccine (3 - 2023-2 5 season) 2023 06/03/2020, 05/13/2020 DTaP, Tdap and Td Vaccines ( 3 - Td or Tdap) 08/22/2033 08/23/2023, 10/23/2017 Pneumococcal Vaccine: 65+ Years Completed 07/09/2022 Zoster Vaccines Completed 07/09/2022, 01/31/2022 Meningococcal B Vaccine Aged Out No l onger eligible based on patient's age to complete this topic Meningococcal Vaccine Aged Out No brenda ollie eligible based on patient's age to complete this topic RSV Immunizations Under 20 Months Aged Out No longer eligible b ased on patient's age to complete this topic Insurance [employer] Care Teams Product Control And Logistics Analyst Relationship Specialty Start Date End Date None, Provider, MD PCP - General UNKNOWN PHYSICIAN SPECIALTY 08/23/23
--- OUTSIDE RECORDS SUMMARY | 2024-05-26 12:31 | XMS_ITS | Clinical Summary ---
Author Organization [facility] Address [address] [place] [address] Phone Care Team Providers Care Percussion Instrument Repairer Name Role Phone Unavailable Primary Care Provider Unavailabl e Allergies Active Allergy Reactions Criticality Noted Date Comments Codeine Nausea and Vomiting Low 10/10/2016 Medications meloxicam (MOBIC) 15 mg tablet Take 15 mg by mouth daily. 01/01/2024 Active memantine (NAMENDA) 10 mg Tablet Take 10 mg by mouth 2 times daily. Active PARoxetine HCl (PAXIL) 40 mg tablet Take 1 Tablet by mouth daily. 04/27/2024 Active pregabalin (LYRICA) 75 mg Capsule Take 75 mg by mouth 2 times daily. 02/04/2024 Active rosuvastatin (CRESTOR) 10 mg tablet Take 10 mg by mouth daily. Active traZODone (DESYREL) 100 mg tablet Take 100 mg by mouth daily at bedtime. 05/10/2024 Active Active Problems No known active problems Encounters Date Type Department Care Team Description 05/26/2024 10:30 AM CDT Office Visit [facility] Oncology and Hematology - [place] [address] [place] [id number] Pool Orellana MD Malignant neoplasm of colon, unspecified part of colon (CMS/HCC) (Primary Dx); Anemia, chronic disease from Last 3 Months Family History Medical History Relation Name Comments No Known Problems Brother No Known Problems Child 1 No Known Problems Child 2 No Known Problems Child 3 No Known Problems Father No Known Problems Mother No Known Problems Sister 1 No Known Problems Sister 2 Relation Name Status Comments Brother Alive Child 1 Alive Child 2 Alive Child 3 Alive Father Mother Alive Sister 1 Alive Sister 2 Alive Social History Tobacco Use Types Packs/Day Years Used Date Smoking Tobacco: Never Smokeless Tobacco: Never Alcohol Use Standard Drinks/Week Comments Never 0 (1 standard drink = 0.6 oz pur e alcohol) Sex and Gender Information Value Date Recorded Sex Assigned at Not on file 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 Gender Identity Not on file Sexual [...] Mass Index 25.57 05/26/2024 10:31 AM CDT Plan of Treatment Health Maintenance Due Date Last Done Comments COLORECTAL SCREENING 2003 Colorectal Cancer Screening 2003 FIT-DNA Q 3 years 2003 FIT/FOBT Q 1 year 2003 Flex Sig/CT Colonography Q 5 years 2003 PNEUMOCOCCAL VACCINE 50+ YEA RS (1 of 1 - PCV) 2008 ZOSTER VACCINE (1 of 2) 2008 INFLUENZA VACCINE (#1) 2023 Medicare Advantage ([place]) Prev entative Visit/Annual Wellness Visit 02/26/2024 RSV VACCINE (60+ or ) (1 - 1-dose 75+ series) 2033 DTAP/TDAP/TD VACCINES (3 - Td or Tdap) 08/22/2033, 10/10/2016 Insurance [facility] [id number]
--- OUTSIDE RECORDS SUMMARY | 2024-05-26 12:31 | XMS_ITS ---
Author Organization [facility] Address [address] [place] [address] Care Team Providers Care District Loss Prevention Manager Name Role Phone AparicioLuis Alberto meraz Primary Care Provider [phone] Charmaine Stanford Unavailable [phone] REASON FOR VISIT 1 Month Psych F/U [...] Not-Taking Encounters Encounter Location Date Provider Diagnosis [address] [address] 05/13/2023 Charmaine Stanford Plan Of Treatment No Information Progress Notes * BRANDEE PavelDOB:1960 (64 yo M)Acc No.[id number]:05/13/2023 UNLOCKED PROGRESS NOTE Patient: Pavel CRAFT Provider: Bryant Stanford, MSN, PRIMARY SPECIAL EDUCATOR-BC, PMHNP-BC :1960 A ge:63 Y S ex:Male Date:05/13/2023 Address:[address] [place], [place] [address] [facility] Pcp:Luis Alberto Aparicio Subjective: * Chief [...] * Electronic signature of Charmaine Stanford , [id number] on 05/26/2024 at 12:31 PM CDT Sign off status: Pending * Provider: Bryant Stanford, MSN, PRIMARY SPECIAL EDUCATOR-BC, PMHNP-BC Date: 05/13/2023 Generated for Liz correa/Karen/Marissa on: 05/26/2024 12:31 PM CDT
--- OUTSIDE RECORDS SUMMARY | 2024-05-26 12:32 | XMS_ITS ---
Author Organization [facility] Address [address] [place] [address] Care Team Providers Care Overnight Babysitter Name Role Phone Markus Luis Alberto Primary Care Provider [phone] Charmaine Stanford Unavailable [phone] Allergies Allergen (clinical drug ingredient) Drug/Non Drug [...] (F33.0) Diagnosis 3 Anxiety (F41.9) Referral Organization [facility] Referring Provider First Name Charmaine Referring Provider Last Name Hien Referring Provider Speciality Psychiatry Referred Provider Specialty Behavioral H [facility] Clinical Notes Ashley Gifford 03/18 02:05:48 [...] Section Notes: PRESCRIPTION #FILLEDWRITTEND RUG LABELQTYDAYSSTRENGTHMMEPRESCRIBERPHARMACYREFILL NO.REFILLSSTATEPATIENT [id number]//09/20235034XRZgoygih5.030.5 Milton Batista C, Md - [id number] Rehabilitation Hospital, [id number]//[id number] [facility] HOSPITALEmma Glass Md [id number] [id number]//[id number] MGEmma Glass Md [id number] [id number]//[id number] MGEmma Pina Md [id number] Problems Problem Type SNOMED Code ICD Code Onset Dates Problem Status W/U Status Risk Notes Problem Mood disorder (19976317) Mood disorder (F39) 03/18/2023 Active confirmed Problem Mild recurrent major depression (77743825) MDD (major depressive disorder), recurrent episode, mild (F33.0) 03/18/2023 Active confirmed Problem Anxiety (65106611) Anxiety (F41.9) 03/18/2023 Active confirmed Encounters Encounter Location Date Provider Diagnosis [address] [place] [place] [address] 03/18/2023 Charmaine Stanford Mood disorder F39 ; [...] May also contact the 24-hour crisis hotline ([facility]), refer to the closest emergency room or [...] May also contact the 24-hour crisis hotline ([facility]), refer to the closest emergency room or [...] Notes * Pavel IRVINDOB:1960 (62 yo M)Acc No.[id number]:03/18/2023 Patient: Geovanna Pavel GOMEZ Provider: ANAT Gurrola :1960 A ge:62 Y S ex:Male Date:03/18/2023 Address:[address] [place] [address], [facility] Subjective: * Chief Complaints: * n [...] HOUSE-19 emergency, with client/parental/guardian consent. S creening: [place] Suicide Severity Rating Scale (LF) D o [...] ordered through his primary- Ryan Murillo in [place], [place]- agreed to electronically sign ILA for results, H IV Screening: D iscussed need for HIV screening. Patient declined.. . C onstitutional: Expectations of this visit- Why present now? Symptoms Present- A couple of weeks ago, my told me some news I didn't like and I went off the deep end. I ended up in [facility] because I couldn't calm down. I ended [...] was hospitalized on 03/01/2023 for MH at [facility]. He reports he couldn't calm himself down [...] Desipramine for enuresis. My mind is like italian cheese. He has been taking Paxil for [...] me down. Walking. 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 Decide whether or not to [...] counseling. He was hospitalized for 03/01/2023 at [facility] for .MEDICAL HISTORY-- Allergies-Codeine (N/A) Other Medications- Gabapentin, Meloxicam, Namenda Medical Concerns- No hx of seizures. Dementia, Borderline Diabetes. Hx of concussions. Has chronic left arm pain and weakness from fracture (had a fall from a roof in 2019) LMP-- N/A Therapist- He is not in therapy. Primary Care Physician- Ryan Murillo APN is his PCP in [place] Emma Glass is his Neurologist through [facility] Recent Labs- Recent labs when hospitalized, [...] use. OTC/Rx drugsDenies use. location- Born in [place], [place] (Lived there until age 18) Current home location- Lives in [place], [place] Who lives at home? Living with [...] Shopping, going outside. Spiritual Affiliation- I am Shinto. Probation/Legal trouble/?- Denies. * ROS: P sych [...] N onsmoker. P RESCRIPTION #FILLEDWRITTENDRUG LABELQTYDAYSSTRENGTHMMEPRESCRIBERPHARMACYREFILL NO.REFILLSSTATEPATIENT [id number] Milton Batista C, Md - [id number] Rehabilitation Hospital, [id number]//[id number] MGEmma Pina Md - [id number] Rehabilitation Hospital, [id number]//[id number] Emma Chavez Md [id number] County Hospital, [id number]/1740Rkiodwcoxu988. Emma Chavez Md [id number]. * Medications: T akingNamenda 10 MG Tablet [...] rotective Factors M arried, Children, Coping Skills, Cultural/Mandaen Ideology, Denies Intent/Desire/Means. Assessment: * Assessment: 1. [...] follow up from new evaluation) * * FIRM RECEPTIONIST Sign off status: Completed true * Provider: ANAT Gurrola Date: 03/18/2023 Generated for Liz correa/Karen/Marissa on: 0 05/26/2024 12:31 PM CDT History and Physical Notes * HPI [...] the deep end. I ended up in [facility] because I couldn't calm down. I ended [...] was hospitalized on 03/01/2023 for MH at [facility]. He reports he couldn't calm himself down [...] Desipramine for enuresis. My mind is like italian cheese. He has been taking Paxil for [...] me down. Walking. 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 Decide whether or not to move [...] He was hospitalized for MH 03/01/2023 at [facility] for SI. MEDICAL HISTORY-- Allergies- Codeine (N/A) Other Medications- Gabapentin, Meloxicam, Namenda Medical Concerns- No hx of seizures. Dementia, Borderline Diabetes. Hx of concussions. Has chronic left arm pain and weakness from fracture (had a fall from a roof in 2019) LMP-- N/A Therapist- He is not in therapy. Primary Care Physician- Ryan Murillo APN is his PCP in [place] Emma Glass is his Neurologist through [facility] Recent Labs- Recent labs when hospitalized, [...] OTC/Rx drugs Denies use. location- Born in [place], [place] (Lived there until age 18) Current home location- Lives in [place], [place] Who lives at home? Living with [...] Shopping, going outside. Spiritual Affiliation- I am Shinto. Probation/Legal trouble/?- Denies. SARAH-7 Screening 1. Feeling [...] SARAH-7 Score Total score: 13 : Screening [place] Suicide Sev erity Rating Scale (LF) Do [...] ordered through his primary- Ryan Murillo in [place], [place]- agreed to electronically sign ILA for [...] Exam Protective Factors: , Children, Coping Skills, Cultural/Mandaen Ideology, Denies Intent/Desire/Means Consultation Request Notes Referral Date Referring Provider Referred Provider Not es 03/18/2023 Charmaine Stanford , New pt eval. R ecent hospitalization after separation from of 30 years. No current SI
--- OUTSIDE RECORDS SUMMARY | 2024-05-26 12:32 | XMS_ITS ---
Author Organization [facility] Address [address] [place] [address] Care Team Providers Care Culinary Artist Name Role Phone Markus Luis Alberto Primary Care Provider Charmaine Stanford Unavailable [phone] Allergies Allergen (clinical drug ingredient) Drug/Non Drug [...] Active Encounters Encounter Location Date Provider Diagnosis [address] [address] 04/16/2023 Charmaine Stanford Mood disorder F39 ; [...] contact the 24-hour crisis hotline ([facility]), refer to the closest emergency [...] Notes * Pavel DAVISDOB:1960 (62 yo M)Acc No.[id number]:04/16/2023 Patient: Pavel CRAFT Provider: ANAT Gurrola :1960 A ge:62 Y S ex:Male Date:04/16/2023 Address:[address] [place] [address], [facility] Subjective: * Chief Complaints: * 1 [...] COVID-19 emergency, with client/parental/guardian consent. S creening: [place] Suicide Severity Rating Scale (LF) D o [...] was hospitalized on 03/01/2023 for MH at [facility]. He reports he couldn't calm himself [...] Ryan Murillo APN is his PCP in [facility] Quan is his Neurologist through [facility] hx of seizures. Dementia, Borderline Diabetes. Hx of concussions. Has chronic left arm pain and weakness from fracture (had a fall from a roof in 2019)Hospitalizations/medication changes by other providers: He has never been in counseling.He was hospitalized for MH 03/01/2023 at [facility] for SI.FMH: Mother-Cardiac Disease, CAD, 5 vessel CABG, she is mentally out there. Father-, CVA'jUYE-ZmbuhkxLGM-OlwnxqiOIU-UnknownPGF-UnknownOlder Sister-HealthyYounger Brother-HealthyYounger Sister-HealthyTwin daughters (age 42)-HealthySon (age [...] PRESCRIBER PHARMACY REFILL NO. REFILLS STATE PATIENT [id number] 03/17/2023 08/15/2022 Gabapentin 405.0 90 600 MG NA Emma Glass Md [id number] [place], [place] NA 3 [place] [id number] 03/04/2023 03/04/2023 LORazepam 7.0 3 0.5 MG Milton Lau C, Md - [id number] [place], [place] NA 0 [place] [id number] 11/26/2022 08/15/2022 Gabapentin 405.0 90 600 MG NA Emma Glass Md [id number] [facility]. * Medications: T akingNamenda 10 MG [...] rotective Factors M arried, Children, Coping Skills, Cultural/Yazdanism Ideology, Denies Intent/Desire/Means. Assessment: * Assessment: 1. [...] contact the 24-hour crisis hotline ([facility]), refer to the closest emergency [...] Psychiatric Follow-up & Medication Management) * * ESS CONTROLS TECHNICIAN Sign off status: Completed true * Provider: ANAT Gurrola Date: 0 04/16/2023 Generated for Liz correa/Karen/eTransmitting on: 0 05/26/2024 12:32 PM CDT History and Physical Notes * [...] Pavel was hospitalized on 03/01/2023 for at [facility]. He reports he couldn't calm himself [...] Ryan Murillo APN is his PCP in [facility] Quan is his Neurologist through [facility] No hx of seizures. Dementia, Borderline Diabetes. Hx of concussions. Has chronic left arm pain and weakness from fracture (had a fall from a roof in 2019)Hospitalizations/medication changes by other providers: He has never been in counseling.He was hospitalized for MH 03/01/2023 at [facility] for SI.FMH: Mother-Cardiac Disease, CAD, 5 vessel CABG, she is mentally out there. Father-, CVA'fGQL-AfucsajCSF-QgwnpifGWT-UnknownPGF-UnknownOlder Sister-HealthyYounger Brother-HealthyYounger Sister-HealthyTwin daughters (age 42)-HealthySon (age [...] Exam Protective Factors: , Children, Coping Skills, Cultural/Yazdanism Ideology, Denies Intent/Desire/Means
--- OUTSIDE RECORDS SUMMARY | 2024-05-26 12:32 | XMS_ITS | CONTINUITY OF CARE DOCUMENT ---
Author Name sary, nashmichael Address Unknown Organization [facility] Address [address] [place] [address] Phone [phone] Care Team Providers Care Grape Grower Name Role Phone Portillo WALKER, Chan Unavailable MINDI WALKER, RAIZA Unavailable [phone] MINDI WALKER, RAIZA Unavailable PROBLEMS Condition Status Date Provider Notes ORTHOSTATIC DIZZINESS active Chan Tarango CHEST PAIN-214 NUC NL active ? Woodrow Pena RN PALPITATIONS active ? Chan Nath MD SOB- 2 ECHO EF 60 active ? Woodrow Pena RN DEMENTIA active ? Chan Nath MD SEIZURE DISORDER active ? Chan Nath MD DVT- RIGHT LEG active ? Chan Nath MD TIA-2006 active ? Chan Nath MD CHF active ? Chan Nath MD ENCOUNTERS Date Type Provider Location Encounter Diag nosis - In-person encounter Office Visit Chan Nath MD [facility] - In-person encounter Office Visit Chan Nath MD [facility] ORTHOSTATIC DIZZINESS - In-person encounter Office Visit Chan Nath MD [facility] CHFTIA-2006DVT- RIGHT LEGSEIZURE DISORDERDEMENTIASOB- 2 ECHO EF 60PALPITATIONSCHEST PAIN-214 NUC NL VITAL SIGNS Date Observation Value [...] Stueber pulse rate, supine, right 88 /min [facility] blood pressure, diastolic, supine, right arm 84 [...] Policy type / Coverage type Parisa red democrat ID [facility] Dizzion 9 [id number] TREATMENT PLAN Date Name Performer Follow Up: [...] EKG Chan Nath MD completed DLCO - 11226 Chan Nath MD complet ed FRC - 97077 Chan Nath MD complete d FVC - 20532 Chan Nath MD complete d
--- OUTSIDE RECORDS SUMMARY | 2024-05-26 12:32 | XMS_ITS | Clinical Summary ---
Author Organization [facility] Address [address] [place] [address] Phone Care Team Providers Care Visual Merchandiser Name Role Phone Provider, Unknown Primary Care [...] Treatment Not on file Insurance MEDICARE C [facility] Care Teams Visual Merchandiser Relationship Specialty Start Date End Date Provider, Unknown UNKNOWN PCP - General 11/02/22
--- OUTSIDE RECORDS SUMMARY | 2024-05-26 12:32 | XMS_ITS | Referral Summary ---
[facility] Organization [facility] Address [address] [place] [address] Care Team Providers Care Urban Renewal Manager Name Role Phone Jose Murillo NP Primary [...] strip TEST ONCE DAILY DIRECTED 06/19/2020 Active ypomshlq-rqg-sx ondroit-vit D3 750 mg-125 mg -600 mg [...] on file Legal Sex Male 3:37 AM DANCING MASTER Gender Identity Not on file Sexual Orientation Not on file Last Filed Vital Signs Vital Sign Reading Time Taken Comments Blood Pressure 115/76 01/01/2024 9:59 AM DANCING MASTER Pulse 71 01/01/2024 9:59 AM DANCING MASTER Temperature - - Respiratory Rate 16 01/01/2024 9:59 AM DANCING MASTER Oxygen Saturation 98% 01/01/2024 9:59 AM DANCING MASTER Inhaled Oxygen Concentration - - Weight 83 kg (183 lb) 01/01/2024 9:59 AM DANCING MASTER Height 180.4 cm (5' 11.02 ) 01/01/2024 9:59 AM Bryant FLOYD Body Mass Index 25.51 01/01/2024 9:59 AM DANCING MASTER Plan of Treatment Not on file Insurance [facility] MEDICARE ADVANTAGE Care Teams Urban Renewal Manager Relationship Specialty Start Date End Date Jose Murillo NP [address] [place] [address] PCP - General Nurse Practitioner 08/15/22
--- OUTSIDE RECORDS SUMMARY | 2024-05-26 12:32 | XMS_ITS | Clinical Summary ---
Author Organization [facility] Address [address] [place] [address] Care Team Providers Care Railroad Brake Repairer Name Role Phone Jose Murillo NP Primary [...] strip TEST ONCE DAILY DIRECTED 06/19/2020 Active suxnnxio-cgu-uq ondroit-vit D3 750 mg-125 mg -600 mg [...] Overview (06/01/2016): Cognitive decline Other amnesia 05/10/2011 Surgical History Surgery Date Site/Laterality Comments ANKLE SURGERY right ankle surgery OTHER SURGICAL HISTORY 02/26/2012 - 02/24/2013 Biceps tendon tear: surgery APPENDECTOMY ANKLE SURGERY ELBOW SURGERY Medical History Medical History Date Comments Congestive heart failure (HCC) c ongestive heart failure Hx Other Medical DVT Hx Other Medical fibromyalgia sy ndrome Hx Other Medical TIA Hypertension hypertension Hypercholesterolemia high choles terol Hx Other Medical restless leg sy ndrome Hx Other Medical Headache, migra ine Hx Other Medical Biceps tendon t ear Broken arm shattered both b ones in Lt arm Anxiety Arthritis Clotting disorder Deep vein thrombosis (HCC) Dementia (HCC) Gout Inflammatory bowel disease [...] on file Legal Sex Male 3:37 AM ADMINISTRATIVE ASSISTANT RECEPTIONIST Gender Identity Not on file Sexual Orientation Not on file Obstetrics History Last Filed Vital Signs Vital Sign Reading Time Taken Comments Blood Pressure 115/76 01/01/2024 9:59 AM ADMINISTRATIVE ASSISTANT RECEPTIONIST Pulse 71 01/01/2024 9:59 AM ADMINISTRATIVE ASSISTANT RECEPTIONIST Temperature - - Respiratory Rate 16 01/01/2024 9:59 AM ADMINISTRATIVE ASSISTANT RECEPTIONIST Oxygen Saturation 98% 01/01/2024 9:59 AM ADMINISTRATIVE ASSISTANT RECEPTIONIST Inhaled Oxygen Concentration - - Weight 83 kg (183 lb) 01/01/2024 9:59 AM ADMINISTRATIVE ASSISTANT RECEPTIONIST Height 180.4 cm (5' 11.02 ) 01/01/2024 9:[address] Body Mass Index 25.51 01/01/2024 9:59 AM ADMINISTRATIVE ASSISTANT RECEPTIONIST Plan of Treatment Health Maintenance Due Date [...] Aneurysm (A AA) Screen Completed 08/23/2023 Insurance Care Teams Railroad Brake Repairer Relationship Specialty Start Date End Date Jose Murillo, SOLITARIO [address] [facility] [address] [id number] PCP - General Nurse Practitioner 08/15/22
[2024-05-26 12:39] LABS: Iron 50 ug/dL (49-181)
[2024-05-26 12:44] LABS: Alanine Aminotransferase 13 U/L (6-50); Albumin Level 3.9 g/dL (3.5-5.1); Alkaline Phosphatase 121 U/L (38-126); Anion Gap 7 mmol/L (4-12); Aspartate Amino Transferase 21 U/L (17-59); Bilirubin,Total 0.5 mg/dL (0.2-1.3); Blood Urea Nitrogen 8 mg/dL (9-20); Carbon Dioxide 34 mmol/L (22-30); Chloride 104 mmol/L (98-107); Estimated Glomerular Filt Rate > 60; Glucose 107 mg/dL (65-110); Potassium 3.9 mmol/L (3.4-5.0); Sodium 145 mmol/L (137-145)
[2024-05-26 12:53] LABS: Percent Iron Saturation 18 % (20-50)
[2024-05-26 13:11] LABS: Carcinoembryonic Antigen 2.6 ng/mL (0.0-3.0)
== END 2024-05-26 11:13 | disposition home or self-care (01) ==
LOC: ANHLAB 11:14
PROVIDERS: PCP Nurse Practitioner Family; Visit Provider Internal Medicine Hematology & Oncology
DX: C18.9 Malignant neoplasm of colon, unspecified (principal); D63.8 Anemia in other chronic diseases classified elsewhere
CPT/HCPCS: 36415; 80053; 82378; 82728; 83540; 83550; 85025

== ENCOUNTER 2024-06-11 11:31 | Outpatient (CLI) | payer MEDICARE, SELFPAY ==
--- OUTSIDE RECORDS SUMMARY | 2024-06-11 12:22 | XMS_ITS | Patient Health Record ---
Author Organization [facility] Address [address] [place] [address] Care Team Providers Care Assembler Camper Name Role Phone AparicioLuis Alberto Primary Care Provider [phone] Allergies Allergen (clinical drug ingredient) Drug/Non Drug [...] PRESCRIBER PHARMACY REFILL NO. REFILLS STATE PATIENT [id number] 03/17/2023 08/15/2022 Gabapentin 405.0 90 600 MG NA Emma Glass Md - [id number] [place], [place] NA 3 [place] [id number] 03/04/2023 03/04/2023 LORazepam 7.0 3 0.5 MG NA Milton Guevara C, Md - [id number] [place], [place] NA 0 [place] [id number] 11/26/2022 08/15/2022 Gabapentin 405.0 90 600 MG NA Emma Glass Md [id number] [facility] PRESCRIPTION #FILLEDWRITTEND RUG LABELQTYDAYSSTRENGTHMMEPRESCRIBERPHARMACYREFILL NO.REFILLSSTATEPATIENT [id number] Milton Batista C, Md - [id number] [facility], [id number]//[id number] Emma Pina Md [id number] [facility] Health [facility], [id number]//[id number] Emma Pina Md [id number] Clinic [facility], [id number]//[id number] Emma Pina Md [id number] Problems Problem Type SNOMED Code ICD Code Onset Dates Problem Status W/U Status Risk Notes Problem Mood disorder (29736288) Mood disorder (F39) 03/18/2023 Active confirmed Problem Anxiety (43118728) Anxiety (F41.9) 03/18/2023 Active confirmed Problem Mild recurrent major depression (62827034) MDD (major depressive disorder), recurrent episode, mild (F33.0) 03/18/2023 Active confirmed Plan Of Treatment No Information Insurance Providers Payer Name Payer Address Payer Phone Subscriber Number Group Number Insured Name Patient Relationship to Insured Coverage Start Date Coverage End Date [employer] AARP Medicare [address] [address] [place] [address] [id number] Pavel Davis Self - patient is the insured Medical (General) History Medical History History ICD Code Dementia Borderline Diabetes Left arm injury, chronic pain Surgical History Surgery Date(Month/Year) appendectomy hemorrhoidectomy cyst removal from right ankle right shoulder- torn bicep repair left elbow repair
--- OUTSIDE RECORDS SUMMARY | 2024-06-11 12:22 | XMS_ITS | Clinical Summary ---
Author Organization [facility] Address [address] [place] [address] Phone Care Team Providers Care Monitor Tech Name Role Phone Provider, Unknown Primary Care [...] Treatment Not on file Insurance MEDICARE C [facility] Care Teams Monitor Tech Relationship Specialty Start Date End Date Provider, Unknown UNKNOWN PCP - General 11/02/22
--- OUTSIDE RECORDS SUMMARY | 2024-06-11 12:22 | XMS_ITS | Clinical Summary ---
Author Organization [facility] Address [facility] [place] [address] Care Team Providers Care Electricity Trading Analyst Name Role Phone None, Provider MD Primary Care Provider Unavaila ble Allergies No known active allergies Medications No known medications Immunizations Immunization Administration Dates Next Due Tdap (Boostrix) 08/23/2023 [...] or Tdap) 08/22/2033 08/23/2023, 10/23/2017 Pneumococcal Vaccine: 50+ Years Completed 07/09/2022 Zoster Vaccines Completed 07/09/2022, [...] Insurance [employer] Care Teams Electricity Trading Analyst Relationship Specialty Start Date End Date None, Provider, MD PCP - General UNKNOWN PHYSICIAN SPECIALTY 08/23/23
--- OUTSIDE RECORDS SUMMARY | 2024-06-11 12:23 | XMS_ITS | Clinical Summary ---
Author Organization [facility] Address [address] [place] [address] Phone Care Team Providers Care Photography Intern Name Role Phone Unavailable Primary Care Provider Unavailabl e Allergies Active Allergy Reactions Criticality Noted Date Comments Codeine Nausea and Vomiting Low 10/10/2016 Medications meloxicam (MOBIC) 15 mg tablet Take 15 mg by mouth daily. 4 Active memantine (NAMENDA) 10 mg Tablet Take 10 mg by mouth 2 times daily. Active PARoxetine HCl (PAXIL) 40 mg tablet Take 1 Tablet by mouth daily. 5 Active pregabalin (LYRICA) 75 mg Capsule Take 75 mg by mouth 2 times daily. 4 08/03/19 25 Active rosuvastatin (CRESTOR) 10 mg tablet Take 10 mg by mouth daily. Active traZODone (DESYREL) 100 mg tablet Take 100 mg by mouth daily at bedtime. 5 Active ondansetron (ZOFRAN ODT) 8 mg Tablet, Rapid Dissolve Dissolve 1 tablet on top of tongue then swallow with saliva every 8 hours as needed for nausea or vomiting 30 Tablet 1 5 Active lidocaine-priloc shirley (EMLA) 2.5-2.5 % CreamIndications :Malignant neoplasm of colon, unspecified part of colon (CMS/HCC) Apply a quarter size amount to port site 30 minutes prior to access. 30 Gram 1 5 Active Active Problems No known active problems Encounters Date Type Department Care Team Description 06/09/2024 Refill [facility] [place] [address] [place] [phone] Pool Orellana MD Malignant neoplasm of colon, unspecified part of colon (CMS/HCC) (Primary Dx) 06/02/2024 External Device Data STL ABSTRACTION Provider, Abstract 06/02/2024 External Device Data STL ABSTRACTION Provider, Abstract 06/02/2024 External Device Data STL ABSTRACTION Provider, Abstract 05/26/2024 10:30 AM CDT Office Visit [facility] [address] [place] [phone] Pool Orellana MD Malignant neoplasm of colon, [...] on file Legal Sex Male 1:02 PM IMAGING SPECIALIST Gender Identity Not on file Sexual Orientation [...] 05/26/2024 10:31 AM CDT Plan of Treatment Upcoming Encounters Date Type Department Care Team (Late st Contact Info) Description 07/06/2024 9:15 AM CDT Office Visit [facility] [place] [address] [facility] [address] [place] [address] Pool Orellana MD [address] [facility] [address] [place] [address] Health Maintenance Due Date Last Done Comments Pre-Diabetes and Diabetes Screening 1960 PNEUMOCOCCAL VACCINE 50+ YEA RS (1 of 1 - PCV) 2008 ZOSTER VACCINE (1 of 2) 2008 INFLUENZA VACCINE (#1) 2023 RSV VACCINE (60+ or ) (1 - 1-dose 75+ series) 2033 DTAP/TDAP/TD VACCINES (3 - Td or Tdap) 08/22/2033, 10/10/2016 Insurance
--- OUTSIDE RECORDS SUMMARY | 2024-06-11 12:23 | XMS_ITS ---
Author Organization [facility] Address [address] [place] [address] Care Team Providers Care Photoresist Printer Name Role Phone Markus Luis Alberto Primary Care Provider Charmaine Stanford Unavailable [phone] Allergies Allergen (clinical drug ingredient) Drug/Non Drug [...] (F33.0) Diagnosis 3 Anxiety (F41.9) Referral Organization [facility] Referring Provider First Name Charmaine Referring Provider Last Name Hien Referring Provider Speciality Psychiatry Referred Provider Specialty Behavioral [facility] Clinical Notes Ashley Gifford 03/18 02:05:48 [...] Section Notes: PRESCRIPTION #FILLEDWRITTEND RUG LABELQTYDAYSSTRENGTHMMEPRESCRIBERPHARMACYREFILL NO.REFILLSSTATEPATIENT [id number]//[id number] Milton Batista C, Md - [id number] County Memorial Hospital, [id number]//[id number] [facility] HOSPITALEmma Glass Md [id number] P. Boland [id number]//[id number] MGEmma Glass Md [id number] [id number]//1127Lvptladufq450.611865 MGEmma Pina Md [id number] Problems Problem Type SNOMED Code ICD Code Onset Dates Problem Status W/U Status Risk Notes Problem Mood disorder (43192922) Mood disorder (F39) 03/18/2023 Active confirmed Problem Mild recurrent major depression (72072975) MDD (major depressive disorder), recurrent episode, mild (F33.0) 03/18/2023 Active confirmed Problem Anxiety (24071615) Anxiety (F41.9) 03/18/2023 Active confirmed Encounters Encounter Location Date Provider Diagnosis [place] [address] [address] 03/18/2023 Charmaine Stanford Mood disorder F39 ; [...] May also contact the 24-hour crisis hotline ([facility]), refer to the closest [...] May also contact the 24-hour crisis hotline ([facility]), refer to the closest [...] Notes * Pavel IRVINDOB:1960 (62 yo M)Acc No.[id number]:03/18/2023 Patient: Geovanna Pavel GOMEZ Provider: ANAT Gurrola :1960 A ge:62 Y S ex:Male Date:03/18/2023 Address:[address] [place] [address], [facility] Subjective: * Chief Complaints: * [...] HOUSE-19 emergency, with client/parental/guardian consent. S creening: [place] Suicide Severity Rating Scale (LF) D o [...] ordered through his primary- Ryan Murillo in [place], [place]- agreed to electronically sign ILA for results, H IV Screening: D iscussed need for HIV screening. Patient declined.. . C onstitutional: Expectations of this visit- Why present now? Symptoms Present- A couple of weeks ago, my told me some news I didn't like and I went off the deep end. I ended up in [facility] because I couldn't calm down. I ended [...] was hospitalized on 03/01/2023 for MH at [facility]. He reports he couldn't calm himself down [...] Desipramine for enuresis. My mind is like kenyan cheese. He has been taking Paxil for [...] me down. Walking. 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 Decide whether or not to [...] counseling. He was hospitalized for 03/01/2023 at [facility] for .MEDICAL HISTORY-- Allergies-Codeine (N/A) Other Medications- Gabapentin, Meloxicam, Namenda Medical Concerns- No hx of seizures. Dementia, Borderline Diabetes. Hx of concussions. Has chronic left arm pain and weakness from fracture (had a fall from a roof in 2019) LMP-- N/A Therapist- He is not in therapy. Primary Care Physician- Ryan Murillo APN is his PCP in [place] Emma Glass is his Neurologist through [facility] Recent Labs- Recent labs when [...] use. OTC/Rx drugsDenies use. location- Born in [place], [place] (Lived there until age 18) Current home location- Lives in [place], [place] Who lives at home? Living with [...] Shopping, going outside. Spiritual Affiliation- I am Anabaptism. Probation/Legal trouble/?- Denies. * ROS: P sych [...] N onsmoker. P RESCRIPTION #FILLEDWRITTENDRUG LABELQTYDAYSSTRENGTHMMEPRESCRIBERPHARMACYREFILL NO.REFILLSSTATEPATIENT [id number] Milton Batista C, Md - [id number] County Memorial Hospital, [id number]//[id number] MGEmma Pina Md - [id number] County Memorial Hospital, [id number]//4327Niqxdusrbd636.922046 Emma Chavez Md [id number] Children'S Hospital [facility] Center, [id number]/7437Crmzhnjijr471. Emma Chavez Md [id number]. * Medications: T akingNamenda 10 MG Tablet [...] rotective Factors M arried, Children, Coping Skills, Cultural/Congregational Ideology, Denies Intent/Desire/Means. Assessment: * Assessment: 1. [...] follow up from new evaluation) * * T TESTER Sign off status: Completed true * Provider: ANAT Gurrola Date: 0 03/18/2023 Generated for Liz correa/Karen/Marissa on: 0 06/11/2024 12:23 PM CDT History and Physical Notes * [...] the deep end. I ended up in [facility] because I couldn't calm down. I ended [...] was hospitalized on 03/01/2023 for MH at [facility]. He reports he couldn't calm himself down [...] Desipramine for enuresis. My mind is like kenyan cheese. He has been taking Paxil for [...] me down. Walking. 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 Decide whether or not to move [...] He was hospitalized for MH 03/01/2023 at [facility] for SI. MEDICAL HISTORY-- Allergies- Codeine (N/A) Other Medications- Gabapentin, Meloxicam, Namenda Medical Concerns- No hx of seizures. Dementia, Borderline Diabetes. Hx of concussions. Has chronic left arm pain and weakness from fracture (had a fall from a roof in 2019) LMP-- N/A Therapist- He is not in therapy. Primary Care Physician- Ryan Murillo APN is his PCP in [place] Emma Glass is his Neurologist through [facility] Recent Labs- Recent labs when [...] OTC/Rx drugs Denies use. location- Born in [place], [place] (Lived there until age 18) Current home location- Lives in [place], [place] Who lives at home? Living with [...] Shopping, going outside. Spiritual Affiliation- I am Anabaptism. Probation/Legal trouble/?- Denies. SARAH-7 Screening 1. Feeling [...] SARAH-7 Score Total score: 13 : Screening [place] Suicide Sev erity Rating Scale (LF) Do [...] ordered through his primary- Ryan Murillo in [place], [place]- agreed to electronically sign ILA for [...] Exam Protective Factors: , Children, Coping Skills, Cultural/Congregational Ideology, Denies Intent/Desire/Means Consultation Request Notes Referral Date Referring Provider Referred Provider Not es 03/18/2023 Charmaine Stanford , New pt eval. R ecent hospitalization after separation from of 30 years. No current SI
--- OUTSIDE RECORDS SUMMARY | 2024-06-11 12:23 | XMS_ITS ---
Author Organization [facility] Address [address] [place] [address] Care Team Providers Care Refinery Operator Alkylation Name Role Phone Markus Luis Alberto Primary Care Provider Charmaine Stanford Unavailable [phone] Allergies Allergen (clinical drug ingredient) Drug/Non Drug [...] Active Encounters Encounter Location Date Provider Diagnosis [address] [address] 04/16/2023 Charmaine Stanford Mood disorder F39 ; [...] Notes * Pavel DAVISDOB:1960 (62 yo M)Acc No.[id number]:04/16/2023 Patient: Pavel CRAFT Provider: ANAT Gurrola :1960 A ge:62 Y S ex:Male Date:04/16/2023 Address:[address] [place] [address], [facility] Subjective: * Chief Complaints: * 1 [...] COVID-19 emergency, with client/parental/guardian consent. S creening: [place] Suicide Severity Rating Scale (LF) D o [...] was hospitalized on 03/01/2023 for MH at [facility]. He reports he couldn't calm himself [...] Ryan Murillo APN is his PCP in [facility] Quan is his Neurologist through [facility] hx of seizures. Dementia, Borderline Diabetes. Hx of concussions. Has chronic left arm pain and weakness from fracture (had a fall from a roof in 2019)Hospitalizations/medication changes by other providers: He has never been in counseling.He was hospitalized for MH 03/01/2023 at [facility] for SI.FMH: Mother-Cardiac Disease, CAD, 5 vessel CABG, she is mentally out there. Father-, CVA'iFZR-EeobgkyOCN-MpakilxLKP-UnknownPGF-UnknownOlder Sister-HealthyYounger Brother-HealthyYounger Sister-HealthyTwin daughters (age 42)-HealthySon (age [...] PRESCRIBER PHARMACY REFILL NO. REFILLS STATE PATIENT [id number] 03/17/2023 08/15/2022 Gabapentin 405.0 90 600 MG NA Emma Glass Md [id number] [place], [place] NA 3 [place] [id number] 03/04/2023 03/04/2023 LORazepam 7.0 3 0.5 MG Milton Lau C, Md - [id number] [place], [place] NA 0 [place] [id number] 11/26/2022 08/15/2022 Gabapentin 405.0 90 600 MG NA Emma Glass Md [id number] [facility]. * Medications: T akingNamenda 10 MG [...] rotective Factors M arried, Children, Coping Skills, Cultural/Church Ideology, Denies Intent/Desire/Means. Assessment: * Assessment: 1. [...] Psychiatric Follow-up & Medication Management) * * RECREATION MANAGER Sign off status: Completed true * Provider: ANAT Gurrola Date: 0 04/16/2023 Generated for Liz correa/Karen/eTransmitting on: 0 06/11/2024 12:22 PM CDT History and Physical Notes * [...] Pavel was hospitalized on 03/01/2023 for at [facility]. He reports he couldn't calm himself [...] Ryan Murillo APN is his PCP in [facility] Quan is his Neurologist through [facility] No hx of seizures. Dementia, Borderline Diabetes. Hx of concussions. Has chronic left arm pain and weakness from fracture (had a fall from a roof in 2019)Hospitalizations/medication changes by other providers: He has never been in counseling.He was hospitalized for MH 03/01/2023 at [facility] for SI.FMH: Mother-Cardiac Disease, CAD, 5 vessel CABG, she is mentally out there. Father-, CVA'sZGP-MudzyydQDV-NwauxxiLUA-UnknownPGF-UnknownOlder Sister-HealthyYounger Brother-HealthyYounger Sister-HealthyTwin daughters (age 42)-HealthySon (age [...] Exam Protective Factors: , Children, Coping Skills, Cultural/Church Ideology, Denies Intent/Desire/Means
--- OUTSIDE RECORDS SUMMARY | 2024-06-11 12:23 | XMS_ITS ---
Author Organization [facility] Address [address] [place] [address] Care Team Providers Care Heel Packer Name Role Phone AparicioLuis Alberto meraz Primary Care Provider [phone] Charmaine Stanford Unavailable [phone] REASON FOR VISIT 1 Month Psych F/U [...] Not-Taking Encounters Encounter Location Date Provider Diagnosis [address] [address] 05/13/2023 Charmaine Stanford Plan Of Treatment No Information Progress Notes * Pavel DAVISDOB:1960 (64 yo M)Acc No.[id number]:05/13/2023 UNLOCKED PROGRESS NOTE Patient: Pavel CRAFT Provider: Bryant Stanford, MSN, SAWMILL HAND-BC, PMHNP-BC :1960 A ge:63 Y S ex:Male Date:05/13/2023 Address:[address] [place] [address], [facility] Pcp:Luis Alberto Aparicio Subjective: * [...] * Electronic signature of Charmaine Stanford , [id number] on 06/11/2024 at 12:23 PM CDT Sign off status: Pending * Provider: Bryant Stanford, MSN, SAWMILL HAND-BC, PMHNP-BC Date: 05/13/2023 Generated for Liz correa/Karen/Marissa on: 06/11/2024 12:23 PM CDT
--- OUTSIDE RECORDS SUMMARY | 2024-06-11 12:23 | XMS_ITS | Referral Summary ---
Author Organization [facility] Address [address] [place] [address] Care Team Providers Care Insulation Batting Machine Operator Name Role Phone Jose Murillo NP Primary Care Provider Encounters Date Type Department Care Team Description 06/03/2024 [facility] [address] [facility] [address] [place] [address] Lori Torrez from Last 3 Months Allergies Active Allergy Reactions Criticality Noted Date Comments Codeine Vomiting Low 11/12/2017 Medications PARoxetine (PAXIL) 40 mg tablet take 1 tablet by oral route every day 90 3 4 Active clopidogrel (PLAVIX) 75 mg tablet Take 1 tablet (75 mg total) by mouth daily Active traZODone (DESYREL) 50 mg tablet Take 2 tablets (100 mg total) by mouth nightly Take 1-2 tablets at bedtime Active metFORMIN (GLUCOPHAGE) 1,000 mg tablet Take 1 tablet (1,000 mg total) by mouth 2 (two) times a day 0 Active OneTouch Delica Plus Lancet 30 gauge misc USE DIRECTED EVERY DAY 1 Active OneTouch Verio test strips strip TEST ONCE DAILY DIRECTED 1 Active vauzdoxc-crg-ah ondroit-vit D3 750 mg-125 mg -600 mg tablet Take by mouth daily Active ALPRAZolam XR (XANAX XR) 1 mg 24 hr tablet Take 1 tablet (1 mg total) by mouth every morning Active rosuvastatin (CRESTOR) 10 mg tablet Take 1 tablet (10 mg total) by mouth daily 4 Active coenzyme Q10 400 mg capsule Take by mouth daily Active meloxicam (MOBIC) 15 mg tablet Take 1 tablet (15 mg total) by mouth daily 90 tablet 3 4 Active memantine (NAMENDA) 10 mg tabletIndicatio ns:Moderate to Severe Alzheimer's Type Dementia Take 1 tablet (10 mg total) by mouth 2 (two) times a day 180 tablet 3 4 01/01/20 25 Active pregabalin (LYRICA) 100 mg capsule Take 1 capsule (100 mg total) by mouth 2 (two) times a day 60 capsule 3 5 Active pregabalin (LYRICA) 75 mg capsule Take 1 capsule (75 mg total) by mouth 2 (two) times a day 60 capsule 5 4 06/04/19 25 Discontinu ed(Alterna te therapy) Active Problems Problem Noted Date Diagnosed Date [...] you are drinking? Patient does not drink 4 Frequency of Binge Drinking Not on file 07/2023 Sex and Gender Information Value Date Recorded Sex Assigned at Not on file Legal Sex Male 3:37 AM VIDEO EDITING INTERNSHIP Gender Identity Not on file Sexual Orientation Not on file Last Filed Vital Signs Vital Sign Reading Time Taken Comments Blood Pressure 115/76 01/01/2024 9:59 AM VIDEO EDITING INTERNSHIP Pulse 71 01/01/2024 9:59 AM VIDEO EDITING INTERNSHIP Temperature - - Respiratory Rate 16 01/01/2024 9:59 AM VIDEO EDITING INTERNSHIP Oxygen Saturation 98% 01/01/2024 9:59 AM VIDEO EDITING INTERNSHIP Inhaled Oxygen Concentration - - Weight 83 kg (183 lb) 01/01/2024 9:59 AM VIDEO EDITING INTERNSHIP Height 180.4 cm (5' 11.02 ) 01/01/2024 9:[address] Body Mass Index 25.51 01/01/2024 9:59 AM VIDEO EDITING INTERNSHIP Plan of Treatment Not on file Insurance [facility] MEDICARE ADVANTAGE [facility] MEDICARE ADVANTAGE UHC MEDICARE ADVANTAGE Care Teams Insulation Batting Machine Operator Relationship Specialty Start Date End Date Jose Murillo NP [address] [place] [address] PCP - General Nurse Practitioner 08/15/22
--- OUTSIDE RECORDS SUMMARY | 2024-06-11 12:24 | XMS_ITS | Clinical Summary ---
Author Organization [facility] Address [address] [facility] [place] [address] Care Team Providers Care Western Philosophy Professor Name Role Phone Jose Murillo NP Primary Care Provider [phone] Allergies Active Allergy Reactions Criticality Noted Date [...] strip TEST ONCE DAILY DIRECTED 1 Active lalbubxm-xai-qv ondroit-vit D3 750 mg-125 mg -600 mg [...] Team Description 06/03/2024 [facility] [address] [facility] [address] [place] [address] Lori Torrez from Last 3 Months Surgical History Surgery [...] on file Legal Sex Male 3:37 AM ACADEMIC COMPUTING DIRECTOR Gender Identity Not on file Sexual Orientation Not on file Obstetrics History Last Filed Vital Signs Vital Sign Reading Time Taken Comments Blood Pressure 115/76 01/01/2024 9:59 AM ACADEMIC COMPUTING DIRECTOR Pulse 71 01/01/2024 9:59 AM ACADEMIC COMPUTING DIRECTOR Temperature - - Respiratory Rate 16 01/01/2024 9:59 AM ACADEMIC COMPUTING DIRECTOR Oxygen Saturation 98% 01/01/2024 9:59 AM ACADEMIC COMPUTING DIRECTOR Inhaled Oxygen Concentration - - Weight 83 kg (183 lb) 01/01/2024 9:59 AM ACADEMIC COMPUTING DIRECTOR Height 180.4 cm (5' 11.02 ) 01/01/2024 9:[address] Body Mass Index 25.51 01/01/2024 9:59 AM ACADEMIC COMPUTING DIRECTOR Plan of Treatment Health Maintenance Due Date Last Done Comments Colon Cancer Screening-Colonoscopy 1960 Depression Screening 1960 Fall Risk Assessment 1960 Hepatitis C Screening 1960 Prostate Cancer Screening-PSA 1960 Hepatitis B Screening 1976 Pneumococcal vaccine 65+ (1 of 1 - PCV) 2008 Zoster Vaccine (1 of 2) 2008 Well Visit 65+ 2023 Influenza Vaccine (Season Ended) 2024 01/05/2019, 12/15/2012, 03/06/2012 DTaP/Tdap/Td Vaccine (4 - Td or Tdap) 08/22/2033 08/23/2023, 10/23/2017, 10/10/2016 Abdominal Aortic Aneurysm (A AA) Screen Completed 08/23/2023 Insurance [facility] [place] [address] [facility] MEDICARE ADVANTAGE [facility] MEDICARE ADVANTAGE Care Teams Western Philosophy Professor Relationship Specialty Start Date End Date Jose Murillo, SOLITARIO [address] [place] [address] PCP - General Nurse Practitioner 08/15/22
--- OUTSIDE RECORDS SUMMARY | 2024-06-11 12:24 | XMS_ITS | CONTINUITY OF CARE DOCUMENT ---
Author Name sary, nashmichael Address Unknown Organization [facility] Address [address] [place] [address] Phone [phone] Care Team Providers Care Manager Center Name Role Phone Portillo WALKER, Chan Unavailable MINDI WALKER, RAIZA Unavailable MINDI WALKER, RAIZA Unavailable [phone] PROBLEMS Condition Status Date Provider Notes ORTHOSTATIC [...] In-person encounter Office Visit Chan Nath MD [facility] - In-person encounter Office Visit Chan Nath [facility] ORTHOSTATIC DIZZINESS - In-person encounter Office Visit Chan Nath MD [facility] [id number]- RIGHT LEGSEIZURE DISORDERDEMENTIASOB- 2 ECHO [...] Stueber pulse rate, supine, right 88 /min [facility] blood pressure, diastolic, supine, right arm [...] Nath MD social history reviewed E&M reviewed Cahn Nath MD quit smoking, stage relapse Woodrow [...] Policy type / Coverage type Parisa red alliance party ID [facility] meets [id number] TREATMENT PLAN Date Name Performer Follow Up: [...] EKG Chan Nath MD completed DLCO - 22561 Chan Nath MD complet ed FRC - 65431 Chan Nath MD complete d FVC - 31829 Chan Nath MD complete d
[2024-06-11 12:31] LABS: INR 1.1; Prothrombin Time 14.2 Seconds (11.1-14.7)
[2024-06-11 12:32] LABS: Partial Thromboplastin Time 30.4 Seconds (22.3-36.8)
== END 2024-06-11 11:32 | disposition home or self-care (01) ==
LOC: ANHSURGERY 11:38
PROVIDERS: PCP Nurse Practitioner Family; Visit Provider Surgery
DX: C18.7 Malignant neoplasm of sigmoid colon (principal); Z01.818 Encounter for other preprocedural examination
CPT/HCPCS: 36415; 85610; 85730

== ENCOUNTER 2024-06-15 01:43 | Day surgery (SDC) | payer MEDICARE, SELFPAY ==
[2024-06-09 14:58] VITALS: BMI 25.0
--- NOTE | 2024-06-09 15:18 | PC.NURSE ---
Report to the Outpatient Waiting Room, entrance under the green pavilion located off [facility], at time ___8:30AM____ on date ___06/15/24____. Planned Procedure Time: ___10:30AM .? Time changes happen often and if your time is changed the preop area will call you the afternoon before. - You and your visitor will be asked to self-screen and do not enter if you have any COVID symptoms. Please call surgeon if you need to reschedule. - A mask is optional within the hospital at this time. Patients may have clear liquids (water, carbonated beverages, clear teas, apple juice) until 3 hours prior to surgery (7:30AM) with a maximum of 20 ounces. - No food from midnight until time of surgery and no smoking, or chewing tobacco (or any form of nicotine). No chewing gum, candy or mints. Take only the following medications with a SIP of water on the morning of surgery: ___PAROXETINE & PREGABALIN DO NOT STOP ANY OF YOUR OTHER PRESCRIPTION MEDICATIONS PRIOR TO SURGERY EXCEPT THE FOLLOWING Hold all vitamins and supplements for 3 days per anesthesiologist.-LAST DOSE 06/11/24. Medications to discontinue per physician ____HOLD NSAIDS (MELOXICAM) PER DR INIGUEZ. Date to take last dose Please no make-up, nail romanian, hairspray, perfume, deodorant, or body powder the day of surgery.? No jewelry (including any body piercings) or valuables the day of surgery, leave them at home.? Please take a shower or bath the night before, or the morning of, surgery with an antibacterial soap.? Wear comfortable, loose fitting clothing.? - Jewelry must be removed prior to entering the operating room.? Rings and piercings that are not removed may be cut off. - The hospital will not accept responsibility for valuables.? - Please leave all valuables, including medications, at home the day of surgery. If you are going home after surgery, a licensed courier driver must drive you home.? - NO public transportation without another adult if you receive anesthesia. - We recommend that an adult stay with you for 24 hours following discharge. - We also recommend that you do not drive, make important decision, drink alcoholic beverages, or take any drugs that were not prescribed by your health care provider for at least 24 hours after your discharge time. Follow any additional instructions given to you from your surgeon. Telephone instructions given to ___PATIENT and asked if any additional questions and then verbalized understanding. Patient advised to call surgeon office or pre surgery nurse liaison [phone] if any additional questions.
--- NOTE | ~2024-06-15 | XR_ITS ---
INTRAOPERATIVE FLUOROSCOPY: CLINICAL HISTORY: 64 years old Male; INSERTION EMILIA CATH PROCEDURE COMMENTS: Limited intraoperative fluoroscopy of the chest was performed. CUMULATIVE DOSE: 6.23 mGy FLUOROSCOPY TIME: 34.8 seconds FINDINGS/IMPRESSION: Please refer to operative note for further details. Reviewed, dictated and finalized at location A.
--- NOTE | ~2024-06-15 | XR_ITS ---
CHEST RADIOGRAPH CLINICAL HISTORY: POST INSERTION EMILIA CATH . COMPARISON: 04/13/2022 TECHNIQUE: Single portable view of the chest. FINDINGS Right internal jugular central venous port catheter identified with its tip projecting over the super ior vena cava, just proximal to the cavoatrial junction. The remainder of the cardiomediastinal silhouette is otherwise unremarkable. The lungs are clear. IMPRESSION: No focal infiltrate or effusion. Right internal jugular central venous port catheter in position and ready for immediate use. Reviewed, dictated and finalized at location A. IMPRESSION: No focal infiltrate or effusion. Right internal jugular central venous port catheter in position and ready for i mmediate use.
--- OUTSIDE RECORDS SUMMARY | 2024-06-15 01:47 | XMS_ITS | Patient Health Record ---
Author Organization [facility] Address [address] [place] [address] Care Team Providers Care Ends Down Checker Name Role Phone Stephanie Aparicioy Primary Care Provider Allergies Allergen (clinical drug ingredient) Drug/Non Drug [...] Section Notes: PRESCRIPTION #FILLEDWRITTEND RUG LABELQTYDAYSSTRENGTHMMEPRESCRIBERPHARMACYREFILL NO.REFILLSSTATEPATIENT [id number]//[id number] Milton Batista C, Md - [id number] P. Huntington [id number]/abapentin405.832373 MGNAFaEmma heard Md [id number] Health, [id number]/7488Ftwnyftlar113.455524 MGNAFaEmma heard Md [id number] Healthcare System, [id number]//9595Urcesowjuz394.567933 MGNAEmma Glass Md [id number] PRESCRIPTION # FILLED CHAVO Castellano DRUG LABEL QTY DAYS STRENGTH MME PRESCRIBER PHARMACY REFILL NO. REFILLS STATE PATIENT [id number] 03/17/2023 08/15/2022 Gabapentin 405.0 90 600 MG NA Emma Glass Md [id number] [place], [place] NA 3 [place] [id number] 03/04/2023 03/04/2023 LORazepam 7.0 3 0.5 MG NA Milton Guevara C, Md - [id number] [place], [place] NA 0 [place] [id number] 11/26/2022 08/15/2022 Gabapentin 405.0 90 600 MG NA Emma Glass Md [id number] [facility] Problems Problem Type SNOMED Code ICD Code Onset Dates Problem Status W/U Status Risk Notes Problem Mood disorder (29189699) Mood disorder (F39) 03/18/2023 Active confirmed Problem Anxiety (42264201) Anxiety (F41.9) 03/18/2023 Active confirmed Problem Mild recurrent major depression (80288726) MDD (major depressive disorder), recurrent episode, mild (F33.0) 03/18/2023 Active confirmed Plan Of Treatment No Information Insurance Providers Payer Name Payer Address Payer Phone Subscriber Number Group Number Insured Name Patient Relationship to Insured Coverage Start Date Coverage End Date UHC AARP Medicare [address] [address] [place] [address] [id number] Pavel Davis Self - patient is the insured Medical (General) History Medical History History ICD Code Dementia Borderline Diabetes Left arm injury, chronic pain Surgical History Surgery Date(Month/Year) appendectomy hemorrhoidectomy cyst removal from right ankle right shoulder- torn bicep repair left elbow repair
--- OUTSIDE RECORDS SUMMARY | 2024-06-15 01:47 | XMS_ITS ---
Author Organization [facility] Address [address] [place] [address] Care Team Providers Care Computer Systems Security Analyst Name Role Phone Markus Luis Alberto Primary Care Provider [phone] Charmaine Stanford Unavailable [phone] Allergies Allergen (clinical drug ingredient) Drug/Non Drug [...] Active Encounters Encounter Location Date Provider Diagnosis [address] [address] 04/16/2023 Charmaine Stanford Mood disorder F39 ; [...] May also contact the 24-hour crisis hotline ([facility]), refer to the closest [...] Notes * Pavel DAVISDOB:1960 (62 yo M)Acc No.[id number]:04/16/2023 Patient: Pavel CRAFT Provider: ANAT Gurrola :1960 A ge:62 Y S ex:Male Date:04/16/2023 Address:[address] [place] [address], [facility] Subjective: * Chief Complaints: * 1 [...] COVID-19 emergency, with client/parental/guardian consent. S creening: [place] Suicide Severity Rating Scale (LF) D o [...] was hospitalized on 03/01/2023 for MH at [facility]. He reports he couldn't calm [...] Ryan Murillo APN is his PCP in [facility] Quan is his Neurologist through [facility] hx of seizures. Dementia, Borderline Diabetes. Hx of concussions. Has chronic left arm pain and weakness from fracture (had a fall from a roof in 2019)Hospitalizations/medication changes by other providers: He has never been in counseling.He was hospitalized for MH 03/01/2023 at [facility] for SI.FMH: Mother-Cardiac Disease, CAD, 5 vessel CABG, she is mentally out there. Father-, CVA'yMUX-GfazrpcKVI-NwahzdhJMD-UnknownPGF-UnknownOlder Sister-HealthyYounger Brother-HealthyYounger Sister-HealthyTwin daughters (age 42)-HealthySon (age [...] PRESCRIBER PHARMACY REFILL NO. REFILLS STATE PATIENT [id number] 03/17/2023 08/15/2022 Gabapentin 405.0 90 600 MG NA Emma Glass Md [id number] [place], [place] NA 3 [place] [id number] 03/04/2023 03/04/2023 LORazepam 7.0 3 0.5 MG Milton Lau C, Md - [id number] [place], [place] NA 0 [place] [id number] 11/26/2022 08/15/2022 Gabapentin 405.0 90 600 MG NA Emma Glass Md [id number] [facility]. * Medications: T akingNamenda 10 [...] rotective Factors M arried, Children, Coping Skills, Cultural/Denominational Ideology, Denies Intent/Desire/Means. Assessment: * Assessment: 1. [...] May also contact the 24-hour crisis hotline ([facility]), refer to the closest [...] Psychiatric Follow-up & Medication Management) * * ERSHIP MANAGER Sign off status: Completed true * Provider: ANAT Gurrola Date: 0 04/16/2023 Generated for Liz correa/Karen/eTransmitting on: 0 06/15/2024 01:47 AM CDT History and Physical Notes * [...] Pavel was hospitalized on 03/01/2023 for at [facility]. He reports he couldn't calm [...] Ryan Murillo APN is his PCP in [facility] Quan is his Neurologist through [facility] No hx of seizures. Dementia, Borderline Diabetes. Hx of concussions. Has chronic left arm pain and weakness from fracture (had a fall from a roof in 2019)Hospitalizations/medication changes by other providers: He has never been in counseling.He was hospitalized for MH 03/01/2023 at [facility] for SI.FMH: Mother-Cardiac Disease, CAD, 5 vessel CABG, she is mentally out there. Father-, CVA'rSLQ-UmsawsxENC-ShlozzkOJW-UnknownPGF-UnknownOlder Sister-HealthyYounger Brother-HealthyYounger Sister-HealthyTwin daughters (age 42)-HealthySon (age [...] Exam Protective Factors: , Children, Coping Skills, Cultural/Denominational Ideology, Denies Intent/Desire/Means
--- OUTSIDE RECORDS SUMMARY | 2024-06-15 01:47 | XMS_ITS | Clinical Summary ---
Author Organization [facility] Address [facility] [place] [address] Care Team Providers Care Engineering Secretary Name Role Phone None, Provider MD Primary [...] Insurance [employer] Care Teams Engineering Secretary Relationship Specialty Start Date End Date None, Provider, MD PCP - General UNKNOWN PHYSICIAN SPECIALTY 08/23/23
--- OUTSIDE RECORDS SUMMARY | 2024-06-15 01:47 | XMS_ITS ---
Author Organization [facility] Address [address] [place] [address] Care Team Providers Care Car Hiker Name Role Phone AparicioLuis Alberto meraz Primary Care Provider Charmaine Stanford Unavailable [phone] REASON FOR VISIT 1 Month Psych F/U [...] Not-Taking Encounters Encounter Location Date Provider Diagnosis [address] [address] 05/13/2023 Charmaine Stanford Plan Of Treatment No Information Progress Notes * Pavel DAVISDOB:1960 (64 yo M)Acc No.[id number]:05/13/2023 UNLOCKED PROGRESS NOTE Patient: Pavel CRAFT Provider: Bryant Stanford, MSN, LOAN ANALYST-BC, PMHNP-BC :1960 A ge:63 Y S ex:Male Date:05/13/2023 Address:[address] [place] [address], [facility] Pcp:Luis Alberto Aparicio Subjective: * Chief [...] * Electronic signature of Charmaine Stanford , [id number] on 06/15/2024 at 01:47 AM CDT Sign off status: Pending * Provider: Bryant Stanford, MSN, LOAN ANALYST-BC, PMHNP-BC Date: 05/13/2023 Generated for Liz correa/Karen/Marissa on: 06/15/2024 01:47 AM CDT
--- OUTSIDE RECORDS SUMMARY | 2024-06-15 01:47 | XMS_ITS | Clinical Summary ---
Author Organization [facility] Address [address] [facility] [place] [address] Phone Care Team Providers Care Field Logistics Coordinator Name Role Phone Unavailable Primary Care Provider [...] Type Department Care Team Description 06/09/2024 Refill [facility] Oncology and Hematology - [place] [address] [place] [address] Pool Orellana MD Malignant neoplasm of colon, unspecified part of colon (CMS/HCC) (Primary Dx) 06/02/2024 External Device Data STL ABSTRACTION Provider, Abstract 06/02/2024 External Device Data STL ABSTRACTION Provider, Abstract 06/02/2024 External Device Data STL ABSTRACTION Provider, Abstract 05/26/2024 10:30 AM CDT Office Visit [facility] Oncology and Hematology [address] [place] [address] Pool Orellana MD Malignant neoplasm of [...] on file Legal Sex 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 [address] [place] [address] Health Maintenance Due Date Last Done Comments Pre-Diabetes and Diabetes Screening 1960 PNEUMOCOCCAL VACCINE 50+ YEA RS (1 of 1 - PCV) 2008 ZOSTER VACCINE (1 of 2) 2008 INFLUENZA VACCINE (#1) 2023 RSV VACCINE (60+ or ) (1 - 1-dose 75+ series) 2033 DTAP/TDAP/TD VACCINES (3 - Td or Tdap) 08/22/2033, 10/10/2016 [place] [address]
--- OUTSIDE RECORDS SUMMARY | 2024-06-15 01:47 | XMS_ITS | Clinical Summary ---
Author Organization [facility] Address [address] [place] [address] Phone Care Team Providers Care Salon Designer Name Role Phone Provider, Unknown Primary Care [...] Treatment Not on file Insurance MEDICARE C [facility] Care Teams Salon Designer Relationship Specialty Start Date End Date Provider, Unknown UNKNOWN PCP - General 11/02/22
--- OUTSIDE RECORDS SUMMARY | 2024-06-15 01:48 | XMS_ITS | Clinical Summary ---
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 Gender Identity Not on file Sexual Orientation Not on file Obstetrics History Last Filed Vital Signs Vital Sign Reading Time Taken Comments Blood Pressure 115/76 01/01/2024 9:59 AM SOCIAL RESEARCH ASSISTANT Pulse 71 01/01/2024 9:59 AM SOCIAL RESEARCH ASSISTANT Temperature - - Respiratory Rate 16 01/01/2024 9:59 AM SOCIAL RESEARCH ASSISTANT Oxygen Saturation 98% 01/01/2024 9:59 AM SOCIAL RESEARCH ASSISTANT Inhaled Oxygen Concentration - - Weight 83 kg (183 lb) 01/01/2024 9:59 AM SOCIAL RESEARCH ASSISTANT Height 180.4 cm (5' 11.02 ) 01/01/2024 9:[address] Body Mass Index 25.51 01/01/2024 9:59 AM SOCIAL RESEARCH ASSISTANT Plan of Treatment Health Maintenance Due Date [...] Aneurysm (A AA) Screen Completed 08/23/2023 Insurance [facility] [place] [address] [facility] MEDICARE ADVANTAGE [facility] MEDICARE ADVANTAGE Care Teams Boiler/Chiller Technician Relationship Specialty Start Date End Date Jose Murillo, SOLITARIO [address] [place] [address] PCP - General Nurse Practitioner 08/15/22
--- OUTSIDE RECORDS SUMMARY | 2024-06-15 01:48 | XMS_ITS | CONTINUITY OF CARE DOCUMENT ---
Author Name sary nashmichael Address Unknown Organization [facility] Address [address] [facility] [address] [place] [address] Phone [phone] Care Team Providers Care Shot Fireman Name Role Phone Chan Nath MD Unavailable [phone] MINDI WALKER, RAIZA Unavailable [phone] MINDI WALKER, RAIZA Unavailable PROBLEMS Condition Status Date Provider Notes CHF active ? Chan Nath MD TIA-2006 active ? Chan Nath MD DVT- RIGHT LEG active ? Chan Nath MD SEIZURE DISORDER active ? Chan Nath MD DEMENTIA active ? Chan Nath MD SOB- 2/14 ECHO EF 60 active ? Woodrow Pena RN PALPITATIONS active ? Chan Nath MD CHEST PAIN-2/14 NUC NL active ? Woodrow Pena RN ORTHOSTATIC DIZZINESS active Chan Tarango ENCOUNTERS Date Type Provider Location Encounter Diag nosis - In-person encounter Office Visit Chan Nath MD [facility] - In-person encounter Office Visit Chan Nath MD [facility] ORTHOSTATIC DIZZINESS - In-person encounter Office Visit Chan aNth MD [facility] CHFTIA-2006DVT- RIGHT LEGSEIZURE DISORDERDEMENTIASOB- 2/14 ECHO EF 60PALPITATIONSCHEST PAIN-2/14 NUC NL VITAL [...] [place] pulse rate, supine, right 88 /min [facility] blood pressure, diastolic, supine, right arm [address] blood pressure, systolic, supine, r arm 1 [address] Body Mass Index (Ratio) 34.21 kg/m2 Leeanna a blood pressure, diastolic 84 mm[Hg] Niranjan jaramillo [place] blood pressure, systolic 128 mm[Hg] Eky Stber pulse rate 106 /min Key [place] [...] Policy type / Coverage type Parisa red libertarian ID [facility] [employer] 9 [id number] TREATMENT PLAN Date Name Performer Follow Up: [...] EKG Chan Nath MD completed DLCO - [id number] Chan Nath MD complet ed FRC - 78431 Chan Nath MD complete d FVC - 90743 Chan Nath MD complete d
--- OUTSIDE RECORDS SUMMARY | 2024-06-15 01:48 | XMS_ITS ---
Author Organization [facility] Address [address] [place] [address] Care Team Providers Care Cutlet Maker Pork Name Role Phone Markus Luis Alberto Primary Care Provider Charmaine Stanford Unavailable [phone] Allergies Allergen (clinical drug ingredient) Drug/Non Drug [...] 3 Anxiety (F41.9) Referral Organization [facility] Referring Provider First Name Charmaine Referring Provider Last Name Hien Referring Provider Speciality Psychiatry Referred Provider Specialty Behavioral H [facility] Clinical Notes Ashley Gifford 03/18 02:05:48 [...] Section Notes: PRESCRIPTION #FILLEDWRITTEND RUG LABELQTYDAYSSTRENGTHMMEPRESCRIBERPHARMACYREFILL NO.REFILLSSTATEPATIENT [id number]//[id number] Milton Batista C, Md - [id number] Memorial Hospital, [id number]//[id number] [facility]OSPITALEmma Glass Md [id number] [id number]//[id number] MGEmma Glass Md [id number] Memorial [id number]//[id number] MGEmma Pina Md [id number] Problems Problem Type SNOMED Code ICD Code Onset Dates Problem Status W/U Status Risk Notes Problem Mood disorder (52382955) Mood disorder (F39) 03/18/2023 Active confirmed Problem Mild recurrent major depression (41403321) MDD (major depressive disorder), recurrent episode, mild (F33.0) 03/18/2023 Active confirmed Problem Anxiety (42874677) Anxiety (F41.9) 03/18/2023 Active confirmed Encounters Encounter Location Date Provider Diagnosis [place] [address] [address] 03/18/2023 Charmaine Stanford Mood disorder F39 ; [...] May also contact the 24-hour crisis hotline ([facility]), refer to the closest [...] May also contact the 24-hour crisis hotline ([facility]), refer to the closest [...] Notes * Pavel IRVINDOB:1960 (62 yo M)Acc No.[id number]:03/18/2023 Patient: Geovanna Pavel GOMEZ Provider: ANAT Gurrola :1960 A ge:62 Y S ex:Male Date:03/18/2023 Address:[address] [place] [address], [facility] Subjective: * Chief Complaints: * n [...] HOUSE-19 emergency, with client/parental/guardian consent. S creening: [place] Suicide Severity Rating Scale (LF) D o [...] ordered through his primary- Ryan Murillo in [place], [place]- agreed to electronically sign ILA for results, H IV Screening: D iscussed need for HIV screening. Patient declined.. . C onstitutional: Expectations of this visit- Why present now? Symptoms Present- A couple of weeks ago, my told me some news I didn't like and I went off the deep end. I ended up in [facility] because I couldn't calm down. I [...] was hospitalized on 03/01/2023 for MH at [facility]. He reports he couldn't calm himself [...] Desipramine for enuresis. My mind is like cayman islander cheese. He has been taking Paxil for [...] me down. Walking. 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 Decide whether or not to [...] counseling. He was hospitalized for 03/01/2023 at [facility] for .MEDICAL HISTORY-- Allergies-Codeine (N/A) Other Medications- Gabapentin, Meloxicam, Namenda Medical Concerns- No hx of seizures. Dementia, Borderline Diabetes. Hx of concussions. Has chronic left arm pain and weakness from fracture (had a fall from a roof in 2019) LMP-- N/A Therapist- He is not in therapy. Primary Care Physician- Ryan Murillo APN is his PCP in [place] Emma Glass is his Neurologist through [facility] Recent Labs- Recent labs when hospitalized, [...] use. OTC/Rx drugsDenies use. location- Born in [place], [place] (Lived there until age 18) Current home location- Lives in [place], [place] Who lives at home? Living with [...] N onsmoker. P RESCRIPTION #FILLEDWRITTENDRUG LABELQTYDAYSSTRENGTHMMEPRESCRIBERPHARMACYREFILL NO.REFILLSSTATEPATIENT [id number] Milton Batista C, Md - [id number] Memorial Hospital, [id number]//[id number] MGEmma Pina Md - [id number] Memorial Hospital, [id number]//[id number] Emma Chavez Md [id number] Carmel Health System, [id number]/0644Rbehdezdtj253. Emma Chavez Md [id number]. * Medications: T akingNamenda 10 MG Tablet [...] rotective Factors M arried, Children, Coping Skills, Cultural/Jainism Ideology, Denies Intent/Desire/Means. Assessment: * Assessment: 1. [...] follow up from new evaluation) * * OR APPLICATIONS ANALYST Sign off status: Completed true * Provider: ANAT Gurrola Date: 0 03/18/2023 Generated for Liz correa/Karen/Marissa on: 0 06/15/2024 01:47 AM CDT History [...] the deep end. I ended up in [facility] because I couldn't calm down. I [...] was hospitalized on 03/01/2023 for MH at [facility]. He reports he couldn't calm himself [...] Desipramine for enuresis. My mind is like cayman islander cheese. He has been taking Paxil for [...] me down. Walking. Goals- Set up a [place] station. Decide whether or not to move [...] He was hospitalized for MH 03/01/2023 at [facility] for SI. MEDICAL HISTORY-- Allergies- Codeine (N/A) Other Medications- Gabapentin, Meloxicam, Namenda Medical Concerns- No hx of seizures. Dementia, Borderline Diabetes. Hx of concussions. Has chronic left arm pain and weakness from fracture (had a fall from a roof in 2019) LMP-- N/A Therapist- He is not in therapy. Primary Care Physician- Ryan Murillo APN is his PCP in [place] Emma Glass is his Neurologist through [facility] Recent Labs- Recent labs when hospitalized, [...] OTC/Rx drugs Denies use. location- Born in [place], [place] (Lived there until age 18) Current home location- Lives in [place], [place] Who lives at home? Living with [...] SARAH-7 Score Total score: 13 : Screening [place] Suicide Sev erity Rating Scale (LF) Do [...] ordered through his primary- Ryan Murillo in [place], [place]- agreed to electronically sign ILA for [...] Exam Protective Factors: , Children, Coping Skills, Cultural/Jainism Ideology, Denies Intent/Desire/Means Consultation Request Notes Referral Date Referring Provider Referred Provider Not es 03/18/2023 Charmaine Stanford , New pt eval. R ecent hospitalization after separation from of 30 years. No current SI
--- OUTSIDE RECORDS SUMMARY | 2024-06-15 01:48 | XMS_ITS | Referral Summary ---
Author Organization 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 Gender Identity Not on file Sexual Orientation Not on file Last Filed Vital Signs Vital Sign Reading Time Taken Comments Blood Pressure 115/76 01/01/2024 9:59 AM SLAB WORKER Pulse 71 01/01/2024 9:59 AM SLAB WORKER Temperature - - Respiratory Rate 16 01/01/2024 9:59 AM SLAB WORKER Oxygen Saturation 98% 01/01/2024 9:59 AM SLAB WORKER Inhaled Oxygen Concentration - - Weight 83 kg (183 lb) 01/01/2024 9:59 AM SLAB WORKER Height 180.4 cm (5' 11.02 ) 01/01/2024 9:[address] Body Mass Index 25.51 01/01/2024 9:59 AM SLAB WORKER Plan of Treatment Not on file Insurance [facility] MEDICARE ADVANTAGE [facility] Address: [facility] [address] [place] [address] [facility] MEDICARE ADVANTAGE [facility] MEDICARE Address: [facility] [address] [place] [address] [employer] MEDICARE ADVANTAGE [facility] MEDIC[facility] Address: [facility] [address] [place] [address] Care Teams Printed Circuit Board Drafter Relationship Specialty Start Date End Date Jose Murillo NP [address] [place] [address] PCP - General Nurse Practitioner 08/15/22
[2024-06-15 08:25] VITALS: BP 146/71; PULSE 54; RESP 16; TEMP 36.2; O2SAT 100
[2024-06-15] MEDS: LACTATED RINGERS 1,000 ML 30 ML IV CONT (08:35)
--- NOTE | 2024-06-15 09:51 | WPDANESEPPF ---
Anes - Initial Pre Proc Eval Procedure: Operation Date: 06/15/24 10:30 Proposed Procedures p Insertion Jenny Cath - Pavel Maravilla MD Date/Time: 06/15/24 09:51 Surgeon: Pavel Maravilla MD Pre Op Diagnosis: Malig of Neoplasm of Colon Patient Data Age: 64 Gender: M Height: 1.78 m Weight: 78.2 kg Last Vital Signs Temp 36.2 C L 06/15/24 08:25 Pulse 54 L 06/15/24 08:25 Resp 16 06/15/24 08:25 BP 146/71 H 06/15/24 08:25 Pulse Ox 100 06/15/24 08:25 O2 Del Method Room Air 06/15/24 08:25 Allergies Allergy/AdvReac Type Severity Reaction Status Date / Time codeine AdvReac Intermediate Nausea and Verified 06/15/24 08:29 Vomiting Home Medications ?Medication ?Instructions ?Recorded ?Confirmed ?Type meloxicam 15 mg tablet 15 mg PO DAILY 06/03/20 06/15/24 History memantine 10 mg tablet 10 mg PO QPM 12/26/22 06/10/24 History rosuvastatin 10 mg tablet 10 mg PO DAILY #90 tabs 02/17/24 06/15/24 Rx trazodone 100 mg tablet 100 mg PO HS #90 tabs 03/19/24 06/15/24 Rx bynqwemn-sujyvi-vaucl extract 5 4 cap PO DAILY 04/24/24 06/15/24 History mg-6 mg-150 mg capsule (Fruit and Vegetable Daily) turmeric 400 mg capsule 400 mg PO BID 04/24/24 06/15/24 History paroxetine HCl 40 mg tablet 40 mg PO DAILY #90 tabs 04/27/24 06/15/24 Rx triamcinolone acetonide 0.5 % 1 applic topical BID PRN rash #30 06/01/24 06/10/24 Rx topical cream grams pregabalin 100 mg capsule (Lyrica) 100 mg PO BID 06/09/24 06/15/24 History Patient hx anesthesia problems: none Family hx anesthesia problems: none Results Review: All pre-operative results and documents have been reviewed as part of the pre-operative evaluation. 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 Type 2 diabetes mellitus Skin lesions Screening for prostate cancer Dementia Benign essential hypertension History of TIAs Hx of deep venous thrombosis Mixed hyperlipidemia Surgical History Surgical History History of ankle surgery H/O elbow surgery H/O shoulder surgery History of appendectomy Family History Family History Mother Family history of heart disease in male family member before age 55 Grandparent Family history of heart disease in male family member before age 55 Other Family history of dementia Hypertension Social History Social History Smoking packs per day: 1 Smoking cigarettes per day: 20.0 Years smoked: 20 Smoking pack-years: 20.00 Smoking status: Current every day smoker Tobacco type: e-cigarettes/vaping Smoking end date: 08/25/04 Additional smoking assessment comments: VAPES OFF AND ON ALL DAY Alcohol intake: never Substance use: current Substance use type: marijuana Other substance usage details: DAILY MARIJUANA Last use: 03/31/2024 Do You Feel Safe in your Home?: Yes Lack of Transportation: No Lack of Food: Never True Current Housing: I Have Housing Concerned About Future Housing: No Difficulty Paying Gas/Electric Bills: No Difficulty Paying for Meds: No Currently Unemployed: Decline to Answer Education: Master's Degree or Higher Difficulty w/ Childcare or Family Care: No Living arrangements: with family Additional living arrangements comments: DAUGHTER Spiritual care concerns: No Anes - Eval Final PreProcedure Day of Procedure 06/15/24 09:51 Patient weight: normal Heart: regular rate and rhythm Lungs: clear to auscultation Airway: Mallampati scale class II Neurological: alert and oriented Last oral intake: >/= 8 hours ASA classification: III Emergent: no Anesthetic plan: proceed Anesthesia type and monitoring: general GIVS and standard monitoring Results Review: All pre-operative results and documents have been reviewed as part of the pre-operative evaluation. Informed Consent: The patient's anesthetic plan and its attendant risks and benefits were discussed with the patient/family/POA. Questions were solicited and answers provided to the satisfaction of the patient/family/POA.
--- NOTE | 2024-06-15 10:24 | P.HP_ITS ---
H&P: HPI History of Present Illness Date/Time: 06/15/24 10:24 Chief Complaint: Stage II sigmoid adenocarcinoma Narrative: Patient is a 64-year-old gentleman who initially had a Cologuard test showing possible colon cancer. He then had a colonoscopy showing a polyp in the sigmoid colon which was biopsied and showed a dysplastic polyp. He then underwent a robotic assisted laparoscopic segmental sigmoid resection. 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 Who was seen by Oncology and recommended that he have chemotherapy treatment. Presents today for placement of a carlitos catheter. Review of Systems Review of Systems: The remainder of the review of systems to include constitutional, HEENT, c ardiovascular, respiratory, GI, , integumentary, musculoskeletal, endocrine, immunologic, hematologic, psychiatric, and neurologic are all negative except for which is mentioned above in the HPI. 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 Type 2 diabetes mellitus Skin lesions Screening for prostate cancer Dementia Benign essential hypertension History of TIAs Hx of deep venous thrombosis Mixed hyperlipidemia Surgical History Surgical History History of ankle surgery H/O elbow surgery H/O shoulder surgery History of appendectomy Family History Family History Mother Family history of heart disease in male family member before age 55 Grandparent Family history of heart disease in male family member before age 55 Other Family history of dementia Hypertension Social History Social History Smoking packs per day: 1 Smoking cigarettes per day: 20.0 Years smoked: 20 Smoking pack-years: 20.00 Smoking status: Current every day smoker Tobacco type: e-cigarettes/vaping Smoking end date: 08/25/04 Additional smoking assessment comments: VAPES OFF AND ON ALL DAY Alcohol intake: never Substance use: current Substance use type: marijuana Other substance usage details: DAILY MARIJUANA Last use: 03/31/2024 Do You Feel Safe in your Home?: Yes Lack of Transportation: No Lack of Food: Never True Current Housing: I Have Housing Concerned About Future Housing: No Difficulty Paying Gas/Electric Bills: No Difficulty Paying for Meds: No Currently Unemployed: Decline to Answer Education: Master's Degree or Higher Difficulty w/ Childcare or Family Care: No Living arrangements: with family Additional living arrangements comments: DAUGHTER Spiritual care concerns: No Meds Home Medications and Allergies Home Medications ?Medication ?Instructions ?Recorded ?Confirmed ?Type meloxicam 15 mg tablet 15 mg PO DAILY 06/03/20 06/15/24 History memantine 10 mg tablet 10 mg PO QPM 12/26/22 06/10/24 History rosuvastatin 10 mg tablet 10 mg PO DAILY #90 tabs 02/17/24 06/15/24 Rx trazodone 100 mg tablet 100 mg PO HS #90 tabs 03/19/24 06/15/24 Rx caawijyf-bfpgrt-jqgra extract 5 4 cap PO DAILY 04/24/24 06/15/24 History mg-6 mg-150 mg capsule (Fruit and Vegetable Daily) turmeric 400 mg capsule 400 mg PO BID 04/24/24 06/15/24 History paroxetine HCl 40 mg tablet 40 mg PO DAILY #90 tabs 04/27/24 06/15/24 Rx triamcinolone acetonide 0.5 % 1 applic topical BID PRN rash #30 06/01/24 06/10/24 Rx topical cream grams pregabalin 100 mg capsule (Lyrica) 100 mg PO BID 06/09/24 06/15/24 History Allergies Allergy/AdvReac Type Severity Reaction Status Date / Time codeine AdvReac Intermediate Nausea and Verified 06/15/24 08:29 Vomiting Vital Signs Vital Signs - 24 hr 06/15/24 08:25 Temperature 36.2 C L Pulse Rate 54 L Respiratory Rate 16 Blood Pressure 146/71 H Pulse Oximetry 100 Oxygen Delivery Room Air Exam Const: General: comfortable and no acute distress HENMT: Ears: TM's normal bilaterally Face/Nose/Sinus: Normal nares present Mouth: Yes moist mucous membranes Eyes: General: appearance normal, both eyes and all related structures Sclera: sclerae normal Pupils: Equal, round and reactive pupils present EOM: EOMs intact bilaterally Neck: Neck: supple and no JVD Chest: Other: Bilateral upper anterior chest without rashes or redness. No chest wall masses. Resp: Effort & Inspection: normal respiratory effort Auscultation: clear to auscultation bilaterally Cardio: Rate: regular rate Rhythm: regular rhythm GI: Other: Abdomen is soft and nondistended. Lower abdominal Pfannenstiel extraction site incision without evidence of visual hernia. Port site incisions are healing without incisional hernia. Skin: General skin exam: normal color and no rashes or lesions noted Neuro: Speech: normal speech Motor exam (neuro): 5/5 motor strength present throughout Sensory Exam: normal sensation Extrem: General: normal to inspection Psych: Mental Status: mental status grossly normal Affect: normal affect Assessment and Plan Assessment and plan (1) Stage II adenocarcinoma of colon: Code(s): C18.9 - Malignant neoplasm of colon, unspecified Status: Acute Assessment and Plan: Patient has stage 2 high risk sigmoid colon cancer. He was seen by medical oncology and agreed with the plan to proceed with chemotherapy treatments. He presents today for placement of a carlitos catheter for chemotherapy. Risks, benefits, indications, and expected outcomes were discussed with the patient. Possible risk of iatrogenic pneumothorax the need for placement chest tube and bleeding possibly needing blood transfusion was discussed. He understands and wished to proceed with the procedure.
--- NOTE | 2024-06-15 10:30 | WPDHPUPDATE1 ---
History and Physical Update Update Date/Time: 06/15/24 10:30 History and Physical has been reviewed, including an updated exam of the patient. There are NO changes in the patient's condition. Risks, benefits, and alternatives have been discussed and questions answered. Patient agrees to proceed with procedure.
[2024-06-15] MEDS: ceFAZolin 2 GM/D5W 50 ML 2 GM/50 ML BAG IVPB (10:53)
[2024-06-15] MEDS: HEPARIN SODIUM 5,000 UNITS/ML VIAL 5000 UNITS IRRIGATION (11:01)
[2024-06-15] MEDS: HEPARIN SODIUM 1,000 UNITS/ML VIAL 1000 UNITS IV PUSH (11:01)
[2024-06-15] MEDS: LIDO 1%/EPINEPHRINE 1:100,000 20 ML VIAL 10 ML INFILTRATE (11:02)
[2024-06-15] MEDS: BUPivacaine HCL 0.5% 10 ML AMP 20 ML INFILTRATE (11:30)
[2024-06-15 11:51] VITALS: BP 129/59; PULSE 73; RESP 14; O2SAT 96
--- NOTE | 2024-06-15 11:52 | P.OP_ITS ---
Procedure Note - Detailed Date of Procedure 06/15/24 Pre-op Diagnosis Stage II invasive sigmoid colon adenocarcinoma Post-op Diagnosis Same Procedure Performed Placement of right internal jugular vein single-lumen port a catheter with int raoperative fluoroscopy. Surgeon Pavel Maravilla MD Anesthesia MAC Indications Patient is a 64-year-old gentleman who had a dysplastic polyp on lower endoscopy. This was located the sigmoid colon. He subsequently underwent a robotic assisted laparoscopic segmental sigmoid resection for the final pathology showed this to be a invasive adenocarcinoma. A staging was T3 N0 M0 stage II high risk colon cancer. He presents now for placement of a carlitos catheter to begin chemotherapy treatments. Findings None significant Description of Procedure After informed consent was obtained patient brought to the operating room placed supine position and IV sedation was administered by anesthesia. Bilateral upper anterior neck and chest was then prepped and draped usual sterile fashion. Time-out was then performed correctly identifying the patient as well as procedure to be performed. He was given perioperative IV antibiotics. I post placement of the carlitos catheter via the right internal jugular vein. 1% lidocaine mixed with 0.5% Marcaine was injected between the 2 heads of the right sternocleidomastoid muscle. A long 18gauge spinal needle was then used to percutaneously cannulate the right internal jugular vein on the 1st pass without any difficulty. There was prompt return of dark venous appearing blood. A guidewire was advanced through the needle into the right internal jugular vein subsequent down into the superior vena cava. Intraoperative fluoroscopy was used to verify the proper placement of the tip of the guidewire. I then injected the same local anesthetic mixture just below the medial 3rd of the right clavicle. A transverse incision was then made this area the scalpel dissection was carried down through the subcutaneous tissue electrocautery. Once I reached the anterior pectoralis fascia I then dissected subcutaneous tissue off this fascia with electrocautery and blunt finger dissection to create a subcutaneous port pocket. I then enlarged the insertion site of the guidewire with a scalpel at the skin and then tunneled a 9.6 Mauritanian single-lumen catheter between the upper right chest incision and the right neck incision. A dilator breakaway sheath was then advanced over the guidewire into the right internal jugular vein and subsequent down into the superior vena cava. The guidewire and dilator were removed leaving the sheath in place. 9.6 Mauritanian single-lumen silastic catheter was then advanced through the sheath into the right internal jugular vein subsequent down into the right atrium of the heart. The sheath was then torn away leaving the catheter in place. Intraoperative fluoroscopy was then used 1 more time to visualize the tip of the catheter as I pulled back on the catheter externals the chest wall into the tip was in the distal superior vena cava. I then cut the catheter to the appropriate length at the skin level and then attached to the titanium Smart Port. The port was then secured in subcutaneous port pocket utilizing 3-0 Prolene sutures on 3 opposite sides. I then accessed the port and it aspirated easily blood and was flushed with heparinized saline solution. I then irrigated out the neck incision and the right upper anterior chest incision with sterile saline solution. Hemostasis was good. I then closed the chest incision utilizing interrupted 3-0 Vicryl sutures in the subcutaneous tissues. The skin edges were then approximated utilizing a running subcuticular 4 Monocryl suture. The small right anterior lateral neck incision was closed with 4-0 Monocryl suture as well. Both incis ions were then cleaned the skin glue was applied. The patient tolerated the procedure well no complications. All sponges, needles, and instrument counts were correct at the end procedure. EBL was _10__cc. The patient was awakened and taken to recovery in stable and satisfactory condition. Portable chest x-ray was obtained at the end the procedure. Reading is pending at the time of this dictation. Implants 9.6 Mauritanian single-lumen silastic catheter attached to Smart port via the right internal jugular vein into the superior vena cava. Estimated Blood Loss 10 Drains No Packing No Pathology None sent Complications No immediate complications Condition Stable Disposition PACU [facility] Billing Surgery - Charge Forward: Surgery Billing
[2024-06-15 12:20] VITALS: BP 133/65; PULSE 62; RESP 20
[2024-06-15 12:50] VITALS: BP 137/60; PULSE 65; RESP 20
== END 2024-06-15 13:01 | disposition home or self-care (01) ==
PROVIDERS: PCP Nurse Practitioner Family; Visit Provider Surgery
PROC: (CPT 36561; principal; 2024-06-15 10:30)
DX: C18.7 Malignant neoplasm of sigmoid colon (principal); D64.9 Anemia, unspecified; I10 Essential (primary) hypertension; E78.2 Mixed hyperlipidemia; E11.9 Type 2 diabetes mellitus without complications; M19.012 Primary osteoarthritis, left shoulder; F41.9 Anxiety disorder, unspecified; F03.90 Unspecified dementia, unspecified severity, without behavioral disturbance, psychotic disturbance, mood disturbance, and anxiety; F12.90 Cannabis use, unspecified, uncomplicated; F17.290 Nicotine dependence, other tobacco product, uncomplicated; Z98.890 Other specified postprocedural states; Z86.73 Personal history of transient ischemic attack (TIA), and cerebral infarction without residual deficits; Z86.718 Personal history of other venous thrombosis and embolism; Z82.49 Family history of ischemic heart disease and other diseases of the circulatory system
CPT/HCPCS: 36561; 77001; C1788; J0690; J1644; J2004; J2704; J3010; J7030; J7120

== ENCOUNTER 2024-09-11 00:54 | Day surgery (SDC) | payer MEDICARE, SELFPAY ==
[2024-09-03 09:55] VITALS: BMI 23.3
--- NOTE | 2024-09-03 10:07 | PC.NURSE ---
Report to the Outpatient Waiting Room, entrance under the green pavilion located off [facility], at time ___09:00am____ on date _09/11/24 . Planned Procedure Time: __11:00am .? Time changes happen often and if your time is changed the preop area will call you the afternoon before. - You and your visitor will be asked to self-screen and do not enter if you have any COVID symptoms. Please call surgeon if you need to reschedule. - A mask is optional within the hospital at this time. Patients may have clear liquids (water, carbonated beverages, clear teas, apple juice) until 3 hours prior to surgery with a maximum of 20 ounces. - No food from midnight until time of surgery and no smoking, or chewing tobacco (or any form of nicotine). No chewing gum, candy or mints.( 0800am) Take only the following medications with a SIP of water on the morning of surgery: ____Paroxetine and Pregabalin DO NOT STOP ANY OF YOUR OTHER PRESCRIPTION MEDICATIONS PRIOR TO SURGERY EXCEPT THE FOLLOWING Hold all vitamins and supplements for 3 days per anesthesiologist. Date to take last dose is 09/07/24 Medications to discontinue per physician NONE Date to take last dose NONE Please no make-up, nail tamazight, hairspray, perfume, deodorant, or body powder the day of surgery.? No jewelry (including any body piercings) or valuables the day of surgery, leave them at home.? Please take a shower or bath the night before, or the morning of, surgery with an antibacterial soap.? Wear comfortable, loose fitting clothing.? - Jewelry must be removed prior to entering the operating room.? Rings and piercings that are not removed may be cut off. - The hospital will not accept responsibility for valuables.? - Please leave all valuables, including medications, at home the day of surgery. If you are going home after surgery, a licensed auto driver must drive you home.? - NO public transportation without another adult if you receive anesthesia. - We recommend that an adult stay with you for 24 hours following discharge. - We also recommend that you do not drive, make important decision, drink alcoholic beverages, or take any drugs that were not prescribed by your health care provider for at least 24 hours after your discharge time. Follow any additional instructions given to you from your surgeon. Telephone instructions given to ___Patient and asked if any additional questions and then verbalized understanding. Patient advised to call surgeon office or pre surgery nurse liaison [phone] if any additional questions.
--- OUTSIDE RECORDS SUMMARY | 2024-09-11 00:56 | XMS_ITS | Clinical Summary ---
Author Organization [facility] Address [facility]ly [facility] [place] [address] Care Team Providers Care Flame Hardening Machine Setter Name Role Phone None, Provider MD Primary [...] Insurance [employer] Care Teams Flame Hardening Machine Setter Relationship Specialty Start Date End Date None, Provider, MD PCP - General UNKNOWN PHYSICIAN SPECIALTY 08/23/23
--- OUTSIDE RECORDS SUMMARY | 2024-09-11 00:56 | XMS_ITS | Patient Health Record ---
Author Organization [facility] [employer] Address [address] [facility] [address] [place] [address] Care Team Providers Care Circular Ripsaw Operator Name Role Phone Yesica Veronica Unavailable [phone] Reason For Referral No Information Medications Medication SIG (Take, Route, Frequency, Duration) Notes Start Date End Date Status Haloperidol 1 MG Oral Act kaylee QUEtiapine Fumarate 25 MG Oral Active traZODone HCl 50 MG Oral Active Plan Of Treatment No Information Insurance Providers Payer Name Payer Address Payer Phone Subscriber Number Group Number Insured Name Patient Relationship to Insured Coverage Start Date Coverage End Date [facility] [address] [place] [address] [phone] [id number] ALYSSA IRVIN Self - patient is the insured
--- OUTSIDE RECORDS SUMMARY | 2024-09-11 00:56 | XMS_ITS | Encounter Summary ---
Author Organization [facility] Address [address] [place] [address] Care Team Providers Care Exercise Manager Name Role Phone Unavailable Primary Care Provider Unavailabl e Encounter Details Date Type Department Care Team (Late st Contact Info) Description 09/07/2024 Orders Only [facility] Oncology and Hematology - [place] [address] [facility] [address] [facility] [address] [place] [address] Pool Orellana MD [address] [facility] [address] [place] [address] Malignant neoplasm of colon, unspecified part of colon (CMS/HCC); Anemia, chronic disease Social History Tobacco Use Types Packs/Day Years Used Date Smoking Tobacco: Never Smokeless Tobacco: Never Alcohol Use Standard Drinks/Week Comments Never 0 (1 standard drink = 0.6 oz pur e alcohol) Sex and Gender Information Value Date Recorded Sex Assigned at Not on file 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
--- OUTSIDE RECORDS SUMMARY | 2024-09-11 00:56 | XMS_ITS | Clinical Summary ---
Author Organization [facility] Address [address] [place] [address] Phone Care Team Providers Care Environmental Services Manager Name Role Phone Provider, Unknown Primary Care [...] Treatment Not on file Insurance MEDICARE C [facility] Care Teams Environmental Services Manager Relationship Specialty Start Date End Date Provider, Unknown UNKNOWN PCP - General 11/02/22
--- OUTSIDE RECORDS SUMMARY | 2024-09-11 00:57 | XMS_ITS | Patient Health Record ---
Author Organization [facility] Address [address] [place] [address] Care Team Providers Care Gold Letterer Name Role Phone Luis Alberto Aparicio Primary Care Provider Allergies Allergen (clinical drug ingredient) Drug/Non Drug Allergy documented on EMR Reaction Allergy Type Onset Date Status codeine Codeine Sulfate nausea and vomiting Drug Allergy Active Reason For Referral No Information Medications Medication SIG (Take, Route, Frequency, Duration) Notes Start Date End Date Status PARoxetine HCl 40 MG 1 tablet in the mor renetta Orally Once a day; Duration: 30 days Active Namenda 10 MG 1 tablet Orally Once a day Active Meloxicam 15 MG 1 tablet Orally Once a day Active Gabapentin 600 MG 1 tablet Orally thre e times a day Active Desipramine HCl 10 MG 1 tablet Orally tw ice a day Active ARIPiprazole 2 MG TAKE 1 TABLET BY MELVIN TH EVERY DAY; Duration: 30 Active traZODone HCl 100 MG TAKE 1 TABLET BY MO UTH EVERY NIGHT AT BEDTIME; Duration: 30 Active hydrOXYzine Pamoate 25 MG 1 capsule thre e times a day prn anxiety Orally Once a day; Duration: 30 days Active Social History Tobacco Use: Social History Observation Description Date Details (start date - stop date) Never Smoker NA - NA Tobacco Control (Standard) Question Answer Notes Tobacco use: Nonsmoker Section Notes: PRESCRIPTION # FILLED WRITTE N DRUG LABEL QTY DAYS STRENGTH MME PRESCRIBER PHARMACY REFILL NO. REFILLS STATE PATIENT [id number] 03/17/2023 08/15/2022 Gabapentin 405.0 90 600 MG NA Emma Glass Md - [id number] [place], [place] NA 3 [place] [id number] 03/04/2023 03/04/2023 LORazepam 7.0 3 0.5 MG NA Milton Guevara C, Md - [id number] [facility], [place] NA 0 [place] [id number] 11/26/2022 08/15/2022 Gabapentin 405.0 90 600 MG NA Emma Glass Md [id number] [facility] PRESCRIPTION #FILLEDWRITTEND RUG LABELQTYDAYSSTRENGTHMMEPRESCRIBERPHARMACYREFILL NO.REFILLSSTATEPATIENT [id number] MGMilton Garibay C, Md - [id number] Medical Center, [id number]//[id number] MGNAEmma Glass Md [id number] Medical Center, [id number]//[id number] [facility] HospitalEmma heard Md [id number], [id number]//[id number] Emma Pina Md [id number] Problems Problem Type SNOMED Code ICD Code Onset Dates Problem Status W/U Status Risk Notes Problem Mood disorder (81535122) Mood disorder (F39) 03/18/2023 Active confirmed Problem Anxiety (80795498) Anxiety (F41.9) 03/18/2023 Active confirmed Problem MDD (major depressive disorder), recurrent episode, mild (F33.0) 03/18/2023 Active confirmed Plan Of Treatment No Information Insurance Providers Payer Name Payer Address Payer Phone Subscriber Number Group Number Insured Name Patient Relationship to Insured Coverage Start Date Coverage End Date [employer] Medicare [address] [address] [place] [address] [id number] Pavel Davis Self - patient is the insured Medical (General) History Medical History History ICD Code Dementia Borderline Diabetes Left arm injury, chronic pain Surgical History Surgery Date(Month/Year) appendectomy hemorrhoidectomy cyst removal from right ankle right shoulder- torn bicep repair left elbow repair
--- OUTSIDE RECORDS SUMMARY | 2024-09-11 00:57 | XMS_ITS | Clinical Summary ---
Author Organization [facility] Address [address] [place] [address] Care Team Providers Care Distance Education Coordinator Name Role Phone Jose Murillo NP [...] strip TEST ONCE DAILY DIRECTED 06/19/2020 Active obacyrsv-xqd-zb ondroit-vit D3 750 mg-125 mg -600 mg [...] tablet 3 01/01/2024 01/01/20 Active pregabalin (LYRICA) 100 mg capsule Take 1 capsule (100 mg total) by mouth 2 (two) times a day 60 capsule 3 06/04/2024 Active Active Problems Problem Noted Date Diagnosed [...] Encounters Date Type Department Care Team Description 07/07/2024 [facility]phone [facility] [address] Emma Glass MD from Last 3 Months Surgical History Surgery [...] on file Legal Sex Male 3:37 AM 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 Gender Identity Not on file Sexual Orientation Not on file Obstetrics History Last Filed Vital Signs Vital Sign Reading Time Taken Comments Blood Pressure 115/76 01/01/2024 9:59 AM 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 Pulse 71 01/01/2024 9:59 AM 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 Temperature - - Respiratory Rate 16 01/01/2024 9:59 AM 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 Oxygen Saturation 98% 01/01/2024 9:59 AM 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 Inhaled Oxygen Concentration - - Weight 83 kg (183 lb) 01/01/2024 9:59 AM 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 Height 180.4 cm (5' 11.02) 01/01/2024 9:[address] Body Mass Index 25.51 01/01/2024 9:59 AM 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 Plan of Treatment Health Maintenance Due Date [...] Aneurysm (A AA) Screen Completed 08/23/2023 Insurance [facility] MEDICARE [facility] Address: [address] [address] [employer] MEDICARE ADVANTAGE [facility] MED[facility] Address: [address] [address] [employer] MEDICARE ADVANTAGE Care Teams Distance Education Coordinator Relationship Specialty Start Date End Date Jose Murillo NP [address] [place], [place] [id number] PCP - General Nurse Practitioner 08/15/22
--- OUTSIDE RECORDS SUMMARY | 2024-09-11 00:57 | XMS_ITS ---
Author Organization [facility] Address [address] [place] [address] Care Team Providers Care Mainspring Winder And Oiler Name Role Phone AparicioLuis Alberto meraz Primary Care Provider Charmaine Stanford Unavailable [phone] REASON FOR VISIT 1 Month Psych F/U & Med Refill Medications Medication SIG (Take, Route, Frequency, Duration) Notes Start Date End Date Status Namenda 10 MG 1 tablet Orally Once a day Active Meloxicam 15 MG 1 tablet Orally Once a day Active PARoxetine HCl 40 MG 1 tablet in the mor renetta Orally Once a day; Duration: 30 days Active traZODone HCl 100 MG 1 tablet at bedtime Orally Once a day; Duration: 30 days Active hydrOXYzine Pamoate 25 MG 1 capsule thre e times a day prn anxiety Orally Once a day; Duration: 30 days Active Gabapentin 600 MG 1 tablet Orally thre e times a day Active Desipramine HCl 10 MG 1 tablet Orally tw ice a day Active Abilify 2 MG 1 tablet Orally Once a day; Duration: 30 days 03/18/2023 Crow-Sai g Encounters Encounter Location Date Provider Diagnosis [address] [address] 05/13/2023 Charmaine Stanford Plan Of Treatment No Information Progress Notes * Pavel DAVISDOB:1960 (64 yo M)Acc No.[id number]:05/13/2023 UNLOCKED PROGRESS NOTE Patient: Pavel CRAFT Provider: Bryant Stanford, MSN, EMERGENCY COMMUNICATIONS DISPATCHER-BC, PMHNP-BC :1960 A ge:63 Y S ex:Male Date:05/13/2023 Address:[address] [place] [address], [facility] Pcp:Luis Alberto Aparicio Subjective: * Chief [...] * Electronic signature of Charmaine Stanford , [id number] on 09/11/2024 at 12:56 AM CDT Sign off status: Pending * Provider: Bryant Stanford, MSN, EMERGENCY COMMUNICATIONS DISPATCHER-BC, PMHNP-BC Date: 05/13/2023 Generated for Liz correa/Karen/Marissa on: 09/11/2024 12:56 AM CDT
--- OUTSIDE RECORDS SUMMARY | 2024-09-11 00:57 | XMS_ITS | Clinical Summary ---
Author Organization [facility] Address [address] [facility] [place] [address] Phone Care Team Providers Care Curb Machine Operator Name Role Phone Unavailable Primary Care [...] 1 Tablet by mouth daily. 5 Active rosuvastatin (CRESTOR) 10 mg tablet Take [...] Encounters Date Type Department Care Team Description 09/07/2024 Orders Only [facility] - [place] [address] [place] [address] Pool Orellana MD Malignant neoplasm of colon, unspecified part of colon (CMS/HCC); Anemia, chronic disease 08/24/2024 Orders Only [facility] - [place] [address] [place] [id number] Pool Orellana MD Malignant neoplasm of colon, unspecified part of colon (CMS/HCC); Anemia, chronic disease 08/10/2024 Orders Only [facility] - [place] [address] [place] [id number] Pool Orellana MD Malignant neoplasm of colon, unspecified part of colon (CMS/HCC); Anemia, chronic disease 07/27/2024 Orders Only [facility] - [place] [address] [place] [id number] Pool Orellana MD Malignant neoplasm of colon, unspecified part of colon (CMS/HCC); Anemia, chronic disease 07/24/2024 Orders Only [facility] - [place] [address] [place] [id number] Pool Orellana MD 07/21/2024 9:00 AM CDT Office Visit [facility] [place] [address] [place] [address] Pool Orellana MD Malignant neoplasm of colon, unspecified part of colon (CMS/HCC) (Primary Dx) 07/13/2024 Orders Only [facility] - [place] [address] [place] [id number] Pool Orellana MD Malignant neoplasm of colon, unspecified part of colon (CMS/HCC); Anemia, chronic disease 07/08/2024 Orders Only [facility] - [place] [address] [place] [phone] Scanning, Provider 07/06/2024 9:15 AM CDT Office Visit [facility] [place] [address] [place] [phone] Pool Orellana MD Malignant neoplasm of colon, unspecified part of colon (CMS/HCC) (Primary Dx); Chronic anemia 07/06/2024 Orders Only [facility] - [place] [address] [place] [address] Pool Orellana MD 06/30/2024 Abstract [facility] - [place] [address] [place] [id number] Pool Orellana MD 06/29/2024 Telephone [facility] - [place] [address] [place] [address] Pool Orellana MD Mouth Sores due to chemotherapy 06/29/2024 Orders Only [facility] - [place] [address] [place] [address] Pool Orellana MD Malignant neoplasm of colon, unspecified part of colon (CMS/HCC); Anemia, chronic disease 06/22/2024 Orders Only [facility] - [place] [address] [place] [address] Pool Orellana MD 06/19/2024 Orders Only [facility] - [place] [address] [place] [address] Pool Orellana MD Malignant neoplasm of colon, unspecified part of colon (CMS/HCC) (Primary Dx); Anemia, chronic disease 06/15/2024 Abstract [facility] - [place] [address] [place] [address] Pool Orellana MD from Last 3 Months Family History Medical [...] on file 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 Gender Identity Not on file Sexual Orientation Not on file Last Filed Vital Signs Vital Sign Reading Time Taken Comments Blood Pressure 137/80 07/21/2024 9:04 AM CDT Pulse 74 07/21/2024 9:04 AM CDT Temperature 36.6 C (97.9 F) 07/21/2024 9:04 AM CDT Respiratory Rate 15 07/21/2024 9:04 AM CDT Oxygen Saturation 98% 07/21/2024 9:04 AM CDT Inhaled Oxygen Concentration - - Weight 77.9 kg (171 lb 12.8 oz) 07/21/2024 9:04 AM CDT Height 177.8 cm (5' 10) 05/26/2024 10: 31 AM CDT Body Mass Index 24.65 05/26/2024 10:31 AM CDT Plan of Treatment Health Maintenance Due Date Last Done Comments PNEUMOCOCCAL VACCINE 50+ YEA RS (1 of 1 - PCV) 2008 ZOSTER VACCINE (1 of 2) 2008 INFLUENZA VACCINE (#1) 2024 RSV VACCINE (60+ or ) (1 - 1-dose 75+ series) 2033 DTAP/TDAP/TD VACCINES (3 - Td or Tdap) 08/22/2033, 10/10/2016 Procedures Procedure Name Priority Date/Time Associated Diagnosis Comments COMPREHENSIVE METABOLIC PANEL Routine 07/21/2024 4:10 PM CDT CBC WITH DIFFERENTIAL Routine 07/06/2024 3:38 PM CDT BASIC METABOLIC PANEL Routine 07/06/2024 3:26 PM CDT COMPREHENSIVE METABOLIC PANEL Routine 07/06/2024 2:25 PM CDT BASIC METABOLIC PANEL Routine 06/22/2024 3:32 PM CDT COMPREHENSIVE METABOLIC PANEL Routine 06/22/2024 3:15 PM CDT from Last 3 Months Results * COMPREHENSIVE METABOLIC PANEL (07/21/2024 4:10 PM CDT) Only the most recent of3 resultswithin the time period is included. Blood us Pool Orellana MD CHEMISTRY ORDERABLES Final Resu lt * CBC WITH DIFFERENTIAL (07/06/2024 3:38 PM CDT) Blood Pool Orellana MD HEMATOLOGY ORDERABLES Final Res ult * BASIC METABOLIC PANEL (07/06/2024 3:26 PM CDT) Only the most recent of2 resultswithin the time period is included. Blood us Pool Orellana MD CHEMISTRY ORDERABLES Final Resu lt from Last 3 Months Insurance [facility] [id number]
--- OUTSIDE RECORDS SUMMARY | 2024-09-11 00:57 | XMS_ITS | Referral Summary ---
Author Organization [facility] Address [address] [place] [address] Care Team Providers Care Motor Vehicle Licence Examiner Name Role Phone Jose Murillo NP Primary Care Provider [phone] Encounters Date Type Department Care Team Description 07/07/2024 Telephone [facility] [address] [facility] [address] [place] [address] Emma Glass MD from Last 3 Months Allergies Active Allergy [...] strip TEST ONCE DAILY DIRECTED 06/19/2020 Active kkeahbdw-xuz-sc ondroit-vit D3 750 mg-125 mg -600 mg [...] on file 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 Gender Identity Not on file Sexual Orientation Not on file Last Filed Vital Signs Vital Sign Reading Time Taken Comments Blood Pressure 115/76 01/01/2024 9:59 AM NAPHTHOL SOAPING MACHINE OPERATOR Pulse 71 01/01/2024 9:59 AM NAPHTHOL SOAPING MACHINE OPERATOR Temperature - - Respiratory Rate 16 01/01/2024 9:59 AM NAPHTHOL SOAPING MACHINE OPERATOR Oxygen Saturation 98% 01/01/2024 9:59 AM NAPHTHOL SOAPING MACHINE OPERATOR Inhaled Oxygen Concentration - - Weight 83 kg (183 lb) 01/01/2024 9:59 AM NAPHTHOL SOAPING MACHINE OPERATOR Height 180.4 cm (5' 11.02) 01/01/2024 9:[address] Body Mass Index 25.51 01/01/2024 9:59 AM NAPHTHOL SOAPING MACHINE OPERATOR Plan of Treatment Not on file Insurance [facility] [facility] [employer] Care Teams Motor Vehicle Licence Examiner Relationship Specialty Start Date End Date Jose Murillo NP [address] [place] [address] PCP - General Nurse Practitioner 08/15/22
--- NOTE | 2024-09-11 09:24 | P.PNAN_ITS ---
Anes - Initial Pre Proc Eval Procedure: Operation Date: 09/11/24 11:00 Proposed Procedures p Removal Jenny Cath - Pavel Maravilla MD Date/Time: 09/11/24 09:24 Surgeon: Pavel Maravilla MD Pre Op Diagnosis: colon cancer Patient Data Age: 64 Gender: M Height: 1.78 m Weight: 74 kg Allergies Allergy/AdvReac Type Severity Reaction Status Date / Time codeine AdvReac Intermediate Nausea and Verified 09/11/24 10:07 Vomiting Home Medications ?Medication ?Instructions ?Recorded ?Confirmed ?Type meloxicam 15 mg tablet 15 mg PO DAILY 06/03/20 09/03/24 History memantine 10 mg tablet 10 mg PO QPM 12/26/22 09/03/24 History rosuvastatin 10 mg tablet 10 mg PO DAILY #90 tabs 02/17/24 09/03/24 Rx trazodone 100 mg tablet 100 mg PO HS #90 tabs 03/19/24 09/03/24 Rx jxfzvcgp-mfrhhb-gjvpj extract 5 4 cap PO DAILY 04/24/24 09/11/24 History mg-6 mg-150 mg capsule (Fruit and Vegetable Daily) paroxetine HCl 40 mg tablet 40 mg PO DAILY #90 tabs 04/27/24 09/03/24 Rx pregabalin 100 mg capsule (Lyrica) 100 mg PO BID 06/09/24 09/03/24 History ferrous sulfate 1 cap PO DAILY 08/04/24 09/11/24 History vitamin B complex 1 cap PO DAILY 08/04/24 09/11/24 History Patient hx anesthesia problems: none Family hx anesthesia problems: none Results Review: All pre-operative results and documents have been reviewed as part of the pre- operative evaluation. 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 Dr. Maravilla History of ankle surgery H/O elbow surgery H/O shoulder surgery History of appendectomy Family History Family History Mother Family history of heart disease in male family member before age 55 Grandparent Family history of heart disease in male family member before age 55 Other Family history of dementia Hypertension Social History Social History Smoking packs per day: 1 Smoking cigarettes per day: 20.0 Years smoked: 20 Smoking pack-years: 20.00 Smoking status: Former smoker Tobacco type: cigarettes and e-cigarettes/vaping Smoking end date: 08/25/04 Additional smoking assessment comments: Vape daily Alcohol intake: never Substance use: current Substance use type: marijuana Other substance usage details: Smoke daily Last use: 03/31/2024 Do You Feel Safe in your Home?: Yes Lack of Transportation: No Lack of Food: Never True Current Housing: I Have Housing Concerned About Future Housing: No Difficulty Paying Gas/Electric Bills: No Difficulty Paying for Meds: Decline to Answer Currently Unemployed: Decline to Answer Education: Master's Degree or Higher Difficulty w/ Childcare or Family Care: No Living arrangements: with family Additional living arrangements comments: DAUGHTER Spiritual care concerns: No Anes - Eval Final PreProcedure Day of Procedure 09/11/24 09:24 Patient weight: normal Heart: regular rate and rhythm Lungs: clear to auscultation and normal air movement Airway: Mallampati scale class II Neurological: alert and oriented Last oral intake: >/= 8 hours ASA classification: III Emergent: no Anesthetic plan: proceed Anesthesia type and monitoring: general GIVS and standard monitoring Results Review: All pre-operative results and documents have been reviewed as part of the pre- operative evaluation. Informed Consent: The patient's anesthetic plan and its attendant risks and benefits were dis cussed with the patient/family/POA. Questions were solicited and answers provided to the satisfaction of the patient/family/POA.
[2024-09-11 09:50] VITALS: BP 128/78; PULSE 50; RESP 16; TEMP 36.2; O2SAT 100
[2024-09-11] MEDS: LACTATED RINGERS 1,000 ML 30 ML IV CONT (10:00)
--- NOTE | 2024-09-11 11:16 | PM.IMHP ---
H&P: HPI History of Present Illness Date/Time: 09/11/24 11:16 Chief Complaint: Jenny catheter in place, history of sigmoid colon cancer Narrative: Patient is a 64-year-old gentleman who earlier this year underwent a robotic assisted laparoscopic sigmoid colectomy for invasive sigmoid adenocarcinoma. It was recommend he undergo chemotherapy treatment and so he had a jenny catheter placed for chemotherapy administration. He started chemotherapy treatments but then after a few treatment started have side effects. He discussed risks and benefits of stopping his chemotherapy with his oncologist and since he was a very early stage colon cancer he elected to stop chemotherapy in a decision made with his medical oncologist. He presents now to have the jenny catheter removed. Review of Systems Review of Systems: The remainder of the review of systems to include constitutional, HEENT, cardiovascular, respiratory, GI, , integumentary, musculoskeletal, endocrine, immunologic, hematologic, psychiatric, and neurologic are all negative except for which is mentioned above in the HPI. 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 Dr. Maravilla History of ankle surgery H/O elbow surgery H/O shoulder surgery History of appendectomy Family History Family History Mother Family history of heart disease in male family member before age 55 Grandparent Family history of heart disease in male family member before age 55 Other Family history of dementia Hypertension Social History Social History Smoking packs per day: 1 Smoking cigarettes per day: 20.0 Years smoked: 20 Smoking pack-years: 20.00 Smoking status: Former smoker Tobacco type: cigarettes and e-cigarettes/vaping Smoking end date: 08/25/04 Additional smoking assessment comments: Vape daily Alcohol intake: never Substance use: current Substance use type: marijuana Other substance usage details: Smoke daily Last use: 03/31/2024 Do You Feel Safe in your Home?: Yes Lack of Transportation: No Lack of Food: Never True Current Housing: I Have Housing Concerned About Future Housing: No Difficulty Paying Gas/Electric Bills: No Difficulty Paying for Meds: Decline to Answer Currently Unemployed: Decline to Answer Education: Master's Degree or Higher Difficulty w/ Childcare or Family Care: No Living arrangements: with family Additional living arrangements comments: DAUGHTER Spiritual care concerns: No Meds Home Medications and Allergies Home Medications ?Medication ?Instructions ?Recorded ?Confirmed ?Type meloxicam 15 mg tablet 15 mg PO DAILY 06/03/20 09/03/24 History memantine 10 mg tablet 10 mg PO QPM 12/26/22 09/03/24 History rosuvastatin 10 mg tablet 10 mg PO DAILY #90 tabs 02/17/24 09/03/24 Rx trazodone 100 mg tablet 100 mg PO HS #90 tabs 03/19/24 09/03/24 Rx ivehznvn-fiptkt-kxcbk extract 5 4 cap PO DAILY 04/24/24 09/11/24 History mg-6 mg-150 mg capsule (Fruit and Vegetable Daily) paroxetine HCl 40 mg tablet 40 mg PO DAILY #90 tabs 04/27/24 09/03/24 Rx pregabalin 100 mg capsule (Lyrica) 100 mg PO BID 06/09/24 09/03/24 History ferrous sulfate 1 cap PO DAILY 08/04/24 09/11/24 History vitamin B complex 1 cap PO DAILY 08/04/24 09/11/24 History Allergies Allergy/AdvReac Type Severity Reaction Status Date / Time codeine AdvReac Intermediate Nausea and Verified 09/11/24 10:07 Vomiting Vital Signs Vital Signs - 24 hr 09/11/24 09:50 Temperature 36.2 C L Pulse Rate 50 L Respiratory Rate 16 Blood Pressure 128/78 Pulse Oximetry 100 Oxygen Delivery Room Air Exam Const: General: comfortable and no acute distress HENMT: Ears: TM's normal bilaterally Face/Nose/Sinus: Normal nares present Mouth: Yes moist mucous membranes Eyes: General: appearance normal, both eyes and all related structures Sclera: sclerae normal Pupils: Equal, round and reactive pupils present EOM: EOMs intact bilaterally Neck: Neck: supple Other: Right internal jugular vein jenny catheter in place. Port in place in the right upper anterior chest. No redness or tenderness around the port. Chest: Other: Right upper anterior chest port in place below the medial right clavicle. Resp: Effort & Inspection: normal respiratory effort Auscultation: clear to auscultation bilaterally Cardio: Rate: regular rate Rhythm: regular rhythm GI: GI Palp: Yes Soft to palpation Other: Robotic port site incisions all healed well without evidence of port site hernias. Skin: General skin exam: normal color and no rashes or lesions noted Neuro: General: gait normal Speech: normal speech Motor exam (neuro): 5/5 motor strength present throughout Sensory Exam: normal sensation Extrem: General: normal to inspection Psych: Mental Status: mental status grossly normal Affect: normal affect Assessment and Plan Assessment and plan (1) Stage II adenocarcinoma of colon: Code(s): C18.9 - Malignant neoplasm of colon, unspecified Status: Acute Assessment and Plan: Patient presents today for removal of his right internal jugular vein jenny catheter. In conjunction with his medical oncologist he has decided to stop chemotherapy treatments for his stage II invasive colon adenocarcinoma. He understands the risks of recurrence of his cancer however his side effects from chemotherapy are impacting his quality of life. We will go ahead and proceed with removing the jenny catheter today. Risks, benefits, indications, and expected outcomes were discussed in detail with the patient and/or family. They understand and I have answered all other questions. They wished to proceed with surgery as outlined above.
--- NOTE | 2024-09-11 11:21 | WPDHPUPDATE1 ---
History and Physical Update Update Date/Time: 09/11/24 11:21 History and Physical has been reviewed, including an updated exam of the patient. There are NO changes in the patient's condition. Risks, benefits, and alternatives have been discussed and questions answered. Patient agrees to proceed with procedure.
[2024-09-11] MEDS: ceFAZolin 2 GM in SODIUM CHLORIDE 0.9% IV 50 ML 100 ML IVPB (11:25)
[2024-09-11] MEDS: BUPivacaine 0.5% ON-Q PUMP 335 ML INTRADERM (11:42)
--- NOTE | 2024-09-11 11:56 | W.PM.PROC2 ---
Procedure Note - Detailed Date of Procedure 09/11/24 Pre-op Diagnosis Stage II invasive sigmoid adenocarcinoma Post-op Diagnosis Same Procedure Performed Removal of right internal jugular vein carlitos catheter Surgeon Pavel Maravilla MD Chargemaster Analyst Madeleine HARRINGTON Anesthesia MAC and Local Indications Patient is a 64-year-old gentleman who earlier this year underwent a robotic assisted laparoscopic sigmoid colectomy for invasive sigmoid adenocarcinoma. Final staging revealed have stage II disease. He did discuss with his medical oncologist proceeding with chemotherapy and he started chemotherapy. However after a few treatments he found that the side effects of the chemotherapy really affecting his quality of life. For this reason after discussion with his medical oncologist the patient has decided to have his carlitos catheter removed and end chemotherapy treatments. He presents for removal of the carlitos catheter today. Findings None significant Description of Procedure After informed consent was obtained patient brought to the operating room placed supine on the operating table and then placed under IV sedation by Anesthesia. The bilateral upper anterior neck and chest was then prepped and draped usual sterile fashion. Time-out was then performed correctly identifying the patient as well as procedure to be performed. He was given perioperative IV antibiotics. I 1st started by injecting 1% lidocaine mixed with 0.5% Marcaine underneath the old scar in the right upper anterior chest region. I also injected around the port. I then made a elongated thin elliptical incision and around the old scar and then sharply resected the old scar with a scalpel. I then dissected down through the subcu tissues to the hub of the port with electrocautery. The proximal part the catheter was then identified and then with traction on the catheter it was easily removed from the right internal jugular vein. Pressure was then held the area the right internal jugular vein to achieve hemostasis. I then completely excised out the port from the subcutaneous port pocket utilized electrocautery removing all 3 of the securing Prolene sutures as well. The port and catheter were then passed off table discarded. I then proceeded to fulgurate the fibrous capsule of the port site utilizing electrocautery. Pressure was no longer being held on the right internal jugular vein was no back bleeding into the incision. I then irrigated the incision sterile saline solution hemostasis was good. The incision was then closed utilizing 2 layers of interrupted 3-0 Vicryl sutures in subcutaneous tissues. Skin edges were approximated lies in a running subcuticular 4 Monocryl suture. Incision was then cleaned and then skin glue was applied. The patient tolerated the procedure well no complications. All sponges, needles, and instrument counts were correct at the end procedure. EBL was _5__cc. The patient was awakened and taken to recovery in stable and satisfactory condition. Implants None Estimated Blood Loss 5 Drains No Packing No Pathology None sent Complications No immediate complications Condition Stable Disposition PACU [facility] Billing Surgery - Charge Forward: Surgery Billing
[2024-09-11 12:02] VITALS: BP 93/49; PULSE 87; RESP 18; O2SAT 99
[2024-09-11 12:32] VITALS: BP 116/97; PULSE 50; RESP 13
[2024-09-11 13:02] VITALS: BP 138/65; PULSE 47; RESP 18
== END 2024-09-11 13:10 | disposition home or self-care (01) ==
PROVIDERS: PCP Nurse Practitioner Family; Visit Provider Surgery
PROC: (CPT 36589; principal; 2024-09-11 11:00)
DX: Z45.2 Encounter for adjustment and management of vascular access device (principal); Z85.038 Personal history of other malignant neoplasm of large intestine; Z92.21 Personal history of antineoplastic chemotherapy; Z90.49 Acquired absence of other specified parts of digestive tract; F17.290 Nicotine dependence, other tobacco product, uncomplicated; F12.90 Cannabis use, unspecified, uncomplicated
CPT/HCPCS: 36590; J0690; J0665; J2004; J2704; J3010; J7120

== ENCOUNTER 2024-12-01 10:10 | Outpatient (CLI) | payer MEDICARE, SELFPAY ==
[2024-12-01 11:00] LABS: Hematocrit 36.9 % (42.0-52.0); Hemoglobin 11.9 g/dL (14.0-18.0); Immature Granulocyte Percent A 0.3 % (0-0.5); Lymphocytes Absolute Auto 0.77 K/mm3 (0.9-3.2); Mean Corpuscular HGB Conc 32.2 g/dl (32-36); Mean Corpuscular Hemoglobin 31.5 pg (26-34); Mean Corpuscular Volume 97.6 fl (80-100); Nucleated Red Blood Cells Absolute Auto 0.000 K/mm3 (0.0-0.012); Nucleated Red Blood Cells Perc 0.0 % (0.0-0.2); Platelet Count Result 166 k/mm3 (150-375); Red Blood Count 3.78 M/mm3 (4.6-6.20); White Blood Count 6.3 K/mm3 (4.5-10.0)
--- OUTSIDE RECORDS SUMMARY | 2024-12-01 11:01 | XMS_ITS | Clinical Summary ---
Author Organization [facility] Address [facility] [place] [address] Care Team Providers Care Electro Winning Operator Name Role Phone None, Provider MD Primary [...] Wellness Visit 2023 COVID-19 Vaccine (3 - season) 2024 06/03/2020, 05/13/2020 Influenza Adult (#1) 2024 01/29/2022, 01/05/2019, 12/15/2012, Additional history exists DTaP, [...] this topic Insurance [employer] MEDIC[employer] Care Teams Electro Winning Operator Relationship Specialty Start Date End Date None, Provider, MD PCP - General UNKNOWN PHYSICIAN SPECIALTY 08/23/23
--- OUTSIDE RECORDS SUMMARY | 2024-12-01 11:01 | XMS_ITS | Clinical Summary ---
Author Organization [facility] Address [address] [facility] [facility] [place] [address] Phone Care Team Providers Care Laundry Marker Supervisor Name Role Phone Unavailable Primary Care Provider [...] Encounters Date Type Department Care Team Description 11/30/2024 Orders Only [facility] Oncology and Hematology - [address] [place] [address] Pool Orellana MD Malignant neoplasm of colon, unspecified part of colon (CMS/HCC); Anemia, chronic disease 11/16/2024 Orders Only [facility] Oncology and Hematology - [place] Pool Orellana MD Malignant neoplasm of colon, unspecified part of colon (CMS/HCC); Anemia, chronic disease 11/11/2024 External Device Data ST[facility] ABSTRACTION Provider, Abstract 11/10/2024 External Device Data [facility] ABSTRACTION Provider, Abstract 11/02/2024 Orders Only [facility] Oncology and Hematology - [place] [address] [place] [id number] Pool Orellana MD Malignant neoplasm of colon, unspecified part of colon (CMS/HCC); Anemia, chronic disease 10/19/2024 Orders Only [facility] Oncology and Hematology - [place] [address] [place] [id number] Pool Orellana MD Malignant neoplasm of colon, unspecified part of colon (CMS/HCC); Anemia, chronic disease 10/05/2024 Orders Only [facility] Oncology and Hematology - [place] [address] [place] [phone] Pool Orellana MD Malignant neoplasm of colon, unspecified part of colon (CMS/HCC); Anemia, chronic disease 09/21/2024 Orders Only [facility] Oncology and Hematology - [place] [address] [place] [id number] Pool Orellana MD Malignant neoplasm of colon, unspecified part of colon (CMS/HCC); Anemia, chronic disease 09/07/2024 Orders Only [facility] Oncology and Hematology - [place] [address] [place] [address] Pool Orellana MD Malignant neoplasm of colon, unspecified part of colon (CMS/HCC); Anemia, chronic disease from Last 3 Months [...] on file 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
--- OUTSIDE RECORDS SUMMARY | 2024-12-01 11:01 | XMS_ITS | Clinical Summary ---
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 Gender Identity Not on file Sexual Orientation Not on file Obstetrics History Last Filed Vital Signs Vital Sign Reading Time Taken Comments Blood Pressure 115/76 01/01/2024 9:59 AM GRINDER SET UP OPERATOR THREAD Pulse 71 01/01/2024 9:59 AM GRINDER SET UP OPERATOR THREAD Temperature - - Respiratory Rate 16 01/01/2024 9:59 AM GRINDER SET UP OPERATOR THREAD Oxygen Saturation 98% 01/01/2024 9:59 AM GRINDER SET UP OPERATOR THREAD Inhaled Oxygen Concentration - - Weight 83 kg (183 lb) 01/01/2024 9:59 AM GRINDER SET UP OPERATOR THREAD Height 180.4 cm (5' 11.02) 01/01/2024 9:[address] Body Mass Index 25.51 01/01/2024 9:59 AM GRINDER SET UP OPERATOR THREAD Plan of Treatment Health Maintenance Due Date Last Done Comments Colon Cancer Screening-Colonoscopy 1960 Depression Screening 1958 Fall Risk Assessment 1960 Hepatitis C Screening 1960 Prostate Cancer Screening-PSA 1958 Hepatitis B Screening 1976 Pneumococcal vaccine 65+ (1 of 1 - PCV) 2008 Zoster Vaccine (1 of 2) 2008 Well Visit 65+ 2023 Influenza Vaccine (#1) 2024 9, 12/15/2012, 03/06/2012 DTaP/Tdap/Td Vaccine (4 - Td or Tdap) 08/22/2033 08/23/2023, 10/23/2017, 10/10/2016 Abdominal Aortic Aneurysm (A AA) Screen Completed 08/23/2023 Insurance [employer] [facility] [place] [id number] [employer] [facility] [place] [id number] [employer] Care Teams Farmworkers Relationship Specialty Start Date End Date Jose Murillo, SOLITARIO [address] [place] [address] PCP - General Nurse Practitioner 08/15/22
--- OUTSIDE RECORDS SUMMARY | 2024-12-01 11:01 | XMS_ITS | Encounter Summary ---
Author Organization [facility] CASSIDY Thrasher [facility] Address [address] [place] [address] Care Team Providers Care Bleach Boiler Filler Name Role Phone Unavailable Primary Care Provider Unavailabl e Encounter Details Date Type Department Care Team (Late st Contact Info) Description 11/30/2024 Orders Only [facility] Oncology and Hematology - [place] [address] [facility] [place] [facility] [address] [place] [address] Pool Orellana MD [address] [facility] [address] [facility] [address] [place] [address] Malignant neoplasm of colon, unspecified part of colon (CMS/HCC); Anemia, chronic disease Social History Tobacco Use Types Packs/Day Years Used Date Smoking Tobacco: Never Smokeless Tobacco: Never Alcohol Use Standard Drinks/Week Comments Never 0 (1 standard drink = 0.6 oz pur e alcohol) Sex and Gender Information Value Date Recorded Sex Assigned at Not on file 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
--- OUTSIDE RECORDS SUMMARY | 2024-12-01 11:01 | XMS_ITS | Clinical Summary ---
Author Organization [facility] Address [address] [place] [address] Phone Care Team Providers Care Barrel Cooper Name Role Phone Provider, Unknown Primary Care [...] Treatment Not on file Insurance MEDICARE C [facility] Care Teams Barrel Cooper Relationship Specialty Start Date End Date Provider, Unknown UNKNOWN PCP - General 11/02/22
[2024-12-01 11:08] LABS: Hemoglobin A1C 6.3 % (<5.7)
[2024-12-01 11:09] LABS: Add Urine Microscopic? YES; Appearance Urine Clear (Clear); Glucose Urine UA 3+ mg/dL (Negative); Leukocyte Esterase Ur Negative LEU/UL (Negative); Nitrate Urine Negative (Negative); Non Pathogenic Casts 0-2; Specific Grav Ur 1.033 (1.001-1.035)
[2024-12-01 11:12] LABS: Iron 44 ug/dL (49-181)
[2024-12-01 11:22] LABS: Percent Iron Saturation 16 % (20-50)
[2024-12-01 11:25] LABS: Alanine Aminotransferase 16 U/L (6-50); Albumin Level 4.0 g/dL (3.5-5.1); Alkaline Phosphatase 112 U/L (38-126); Anion Gap 7 mmol/L (4-12); Aspartate Amino Transferase 26 U/L (17-59); Bilirubin,Total 0.3 mg/dL (0.2-1.3); Blood Urea Nitrogen 12 mg/dL (9-20); Calcium 8.8 mg/dL (8.4-10.2); Carbon Dioxide 28 mmol/L (22-30); Chloride 104 mmol/L (98-107); Cholesterol 129 mg/dL (0-200); Estimated Glomerular Filt Rate > 60; Glucose 183 mg/dL (65-110); HDL Direct 53 mg/dL; Potassium 4.2 mmol/L (3.4-5.0); Sodium 139 mmol/L (137-145); Total Protein 7.4 g/dL (6.3-8.2); Triglycerides 76 mg/dL (<150)
[2024-12-01 11:26] LABS: MALB Creatinine Ratio 7.0 mg/g (0-30)
[2024-12-01 11:43] LABS: Thyroid Stimulating Hormone Reflex 2.180 uIU/mL (0.465-4.68)
[2024-12-01 11:47] LABS: Ferritin 67.10 ng/mL (11.1-264)
[2024-12-01 12:01] LABS: Prostate Specific Antigen 0.6 ng/mL (< OR = 4.0)
[2024-12-01 12:20] LABS: Vitamin B12 384.0 pg/mL (239-931)
== END 2024-12-01 10:11 | disposition home or self-care (01) ==
PROVIDERS: PCP Nurse Practitioner Family; Visit Provider Nurse Practitioner Family
DX: E78.2 Mixed hyperlipidemia (principal); E11.9 Type 2 diabetes mellitus without complications; E53.8 Deficiency of other specified B group vitamins; Z00.00 Encounter for general adult medical examination without abnormal findings; D64.9 Anemia, unspecified; Z12.5 Encounter for screening for malignant neoplasm of prostate
CPT/HCPCS: 36415; 80053; 80061; 81001; 82043; 82607; 82728; 83036; 83540; 83550; 84153; 84443; 85025; G0103

== ENCOUNTER 2024-12-10 11:42 | Outpatient (CLI) | payer MEDICARE, SELFPAY ==
--- NOTE | ~2024-12-10 | XR_ITS ---
Examination: XR ankle LT min 3V Clinical History: M25.572 - Pain in left ankle and joints of left foot Comparison: None Technique: 4 views left ankle Findings/impression: 1. Nondisplaced oblique fracture distal fibula above the level of ankle mortise. 2. Probable chronic avulsion fracture medial malleolus tip. 3. Ankle mortise maintained. 4. Calcification along tibiofibular syndesmosis. 5. Calcaneal plantar enthesophyte Reviewed, dictated and finalized at location R.
--- OUTSIDE RECORDS SUMMARY | 2024-12-10 13:43 | XMS_ITS | Patient Health Record ---
Author Organization [facility] Address [address] [place] [address] Care Team Providers Care Area Coordinator Name Role Phone AparicioLuis Alberto Primary Care Provider Allergies Allergen (clinical drug [...] PRESCRIBER PHARMACY REFILL NO. REFILLS STATE PATIENT [id number] 03/17/2023 08/15/2022 Gabapentin 405.0 90 600 MG NA Emma Glass Md - [id number] [place], [place] NA 3 [place] [id number] 03/04/2023 03/04/2023 LORazepam 7.0 3 0.5 MG NA Milton Guevara C, Md - [id number] [facility], [place] NA 0 [place] [id number] 11/26/2022 08/15/2022 Gabapentin 405.0 90 600 MG NA Emma Glass Md [id number] [facility] PRESCRIPTION #FILLEDWRITTEND RUG LABELQTYDAYSSTRENGTHMMEPRESCRIBERPHARMACYREFILL NO.REFILLSSTATEPATIENT [id number] MGMilton Garibay C, Md - [id number], [id number]//[id number] MGSkagit Regional HealthEmma heard Md [id number] Lansdale Hospital, [id number]//[id number] [facility] HospitalEmma heard Md [id number] Hospital [facility], [id number] [facility] CENTEREmma Glass Md [id number] Problems Problem Type SNOMED Code ICD Code Onset Dates Problem Status W/U Status Risk Notes Problem Mood disorder (57571317) Mood disorder (F39) 03/18/2023 Active confirmed Problem Anxiety (84748829) Anxiety (F41.9) 03/18/2023 Active confirmed Problem Mild recurrent major depression (71760636) MDD (major depressive disorder), recurrent episode, mild (F33.0) 03/18/2023 Active confirmed Plan Of Treatment No Information Insurance Providers Payer Name Payer Address Payer Phone Subscriber Number Group Number Insured Name Patient Relationship to Insured Coverage Start Date Coverage End Date [employer] Medicare [address] [address] [place] [address] [id number] Pavel Davsi Self - patient is the insured 4 Medical (General) History Medical History History ICD Code Dementia Borderline Diabetes Left arm injury, chronic pain Surgical History Surgery Date(Month/Year) appendectomy hemorrhoidectomy cyst removal from right ankle right shoulder- torn bicep repair left elbow repair
--- OUTSIDE RECORDS SUMMARY | 2024-12-10 13:43 | XMS_ITS | Patient Health Record ---
Author Organization [facility] Address [address] [facility] [address] [place] [address] Care Team Providers Care Friction Saw Operator Name Role Phone Yesica Veronica Unavailable [phone] Reason For Referral No Information Medications Medication SIG (Take, Route, Frequency, Duration) Notes Start Date End Date Status Haloperidol 1 MG Tablet Oral Active QUEtiapine Fumarate 25 MG Tablet Oral Active traZODone HCl 50 MG Tablet Oral Active Social History Social History Additional Details Category Social Info Options Details Migrated Social History Migrated Social History Tobacco Years: Former smoker 03/03/2019 Plan Of Treatment No Information Insurance Providers Payer Name Payer Address Payer Phone Subscriber Number Group Number Insured Name Patient Relationship to Insured Coverage Start Date Coverage End Date [facility] [address] [place] [address] [id number] ALYSSA IRVIN Self - patient is the insured
--- OUTSIDE RECORDS SUMMARY | 2024-12-10 13:43 | XMS_ITS | Clinical Summary ---
Author Organization [facility] Address [address] [place] [address] Phone Care Team Providers Care Roughing Mill Operator Name Role Phone Provider, Unknown Primary [...] Treatment Not on file Insurance MEDICARE C [facility] Care Teams Roughing Mill Operator Relationship Specialty Start Date End Date Provider, Unknown UNKNOWN PCP - General 11/02/22
--- OUTSIDE RECORDS SUMMARY | 2024-12-10 13:43 | XMS_ITS | Clinical Summary ---
Author Organization [facility] Address [facility] [place] [address] Care Team Providers Care Cue Worker Name Role Phone None, Provider MD Primary [...] Colonoscopy (10 Years) 1958 Hepatitis C 1976 Annual Medicare Wellness Visit 2023 COVID-19 Vaccine ( season) 2024 06/03/2020, 05/13/2020 Influenza Adult (#1) 2024 01/29/2022, 01/05/2019, 12/15/2012, Additional history exists RSV Immunization or 60+ Years (1 - 1-dose 75+ series) 2033 DTaP, Tdap and Td Vaccines (3 - Td or Tdap) 08/22/2033 08/23/2023, 10/23/2017 Pneumococcal Vaccine: 50+ Years Completed 07/09/2022 Zoster Vaccines Completed 07/09/2022, 01/31/2022 Hepatitis A Vaccines Aged Out No long er eligible based on patient's age to complete this topic Meningococcal B Vaccine Aged Out No l onger eligible based on patient's age to complete this topic Meningococcal Vaccine Aged Out No brenda ollie eligible based on patient's age to complete this topic RSV Immunizations Under 20 Months Aged Out No longer eligible based on patient's age to complete this topic Insurance [facility] [employer] MEDICARE Care Teams Cue Worker Relationship Specialty Start Date End Date None, Provider, MD PCP - General UNKNOWN PHYSICIAN SPECIALTY 08/23/23
--- OUTSIDE RECORDS SUMMARY | 2024-12-10 13:43 | XMS_ITS | Clinical Summary ---
Author Organization [facility] Address [address] [place] [address] Care Team Providers Care Digital Retoucher Name Role Phone Jose Murillo NP Primary Care Provider [phone] Allergies Active Allergy Reactions Criticality Noted Date [...] strip TEST ONCE DAILY DIRECTED 1 Active gpdaelwu-tqt-nq ondroit-vit D3 750 mg-125 mg -600 mg [...] mouth 2 (two) times a day 180 capsule 3 5 Active pregabalin (LYRICA) 100 mg capsule Take 1 capsule (100 mg total) by mouth 2 (two) times a day 60 capsule 3 5 12/05/19 25 Discontinu ed(Reorder ) Active Problems Problem Noted Date Diagnosed Date [...] on file Legal Sex Male 3:37 AM CLINICIAN 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 Gender Identity Not on file Sexual Orientation Not on file Obstetrics History Last Filed Vital Signs Vital Sign Reading Time Taken Comments Blood Pressure 115/76 01/01/2024 9:59 AM CLINICIAN ONCOLOGY Pulse 71 01/01/2024 9:59 AM CLINICIAN ONCOLOGY Temperature - - Respiratory Rate 16 01/01/2024 9:59 AM CLINICIAN ONCOLOGY Oxygen Saturation 98% 01/01/2024 9:59 AM CLINICIAN ONCOLOGY Inhaled Oxygen Concentration - - Weight 83 kg (183 lb) 01/01/2024 9:59 AM CLINICIAN ONCOLOGY Height 180.4 cm (5' 11.02) 01/01/2024 9:[address] Body Mass Index 25.51 01/01/2024 9:59 AM CLINICIAN ONCOLOGY Plan of Treatment Health Maintenance Due Date [...] Aneurysm (A AA) Screen Completed 08/23/2023 Insurance [facility] MEDICARE ADVANTAGE [employer] MED[employer] ADVANTAGE Member Subscriber Plan / Payer (Ef fective 2019-Present) Name:Pavel Davis Relation to Subscriber:Self Name:Pavel Davis Payer ID:[id number] (NAIC) Type:[facility] MED[facility] Address: [place] [id number] UHC MEDICARE ADVANTAGE Care Teams Digital Retoucher Relationship Specialty Start Date End Date Jose Murillo NP [address] [place] [address] PCP - General Nurse Practitioner 08/15/22
--- OUTSIDE RECORDS SUMMARY | 2024-12-10 13:43 | XMS_ITS | Clinical Summary ---
Author Organization [facility] Address [address] [place] [address] Phone Care Team Providers Care Digital Print Operator Name Role Phone Unavailable Primary Care [...] Department Care Team Description 11/30/[address] [facility] Oncology and Hematology - [place] [address] [place] [address] Pool Orellana MD Malignant neoplasm of colon, unspecified part of colon (CMS/HCC); Anemia, chronic disease 11/16/[address] [facility] Oncology and Hematology - [place] [address] [place] [address] Pool Orellana MD Malignant neoplasm of colon, unspecified part of colon (CMS/HCC); Anemia, chronic disease 11/11/2024 External Device Data STL ABSTRACTION Provider, Abstract 11/10/2024 External Device Data STL ABSTRACTION Provider, Abstract 11/02/[address] [facility] Oncology and Hematology - [place] [address] [place] [address] Pool Orellana MD Malignant neoplasm of colon, unspecified part of colon (CMS/HCC); Anemia, chronic disease 10/19/[address] [facility] Oncology and Hematology - [place] [address] [place] [address] Pool Orellana MD Malignant neoplasm of colon, unspecified part of colon (CMS/HCC); Anemia, chronic disease 10/05/[address] [facility] Oncology and Hematology - [place] [address] [place] [address] Pool Orellana MD Malignant neoplasm of colon, unspecified part of colon (CMS/HCC); Anemia, chronic disease 09/21/[address] 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
== END 2024-12-10 11:43 | disposition home or self-care (01) ==
PROVIDERS: PCP Nurse Practitioner Family; Visit Provider Nurse Practitioner Family
DX: M77.32 Calcaneal spur, left foot (principal); S82.435A Nondisplaced oblique fracture of shaft of left fibula, initial encounter for closed fracture; X58.XXXA Exposure to other specified factors, initial encounter
CPT/HCPCS: 73610